=== PATIENT | male | born 1960 | race Caucasian/White ===

== ENCOUNTER 2022-01-16 13:23 | Inpatient (IN) | payer MEDICARE, MEDICAID, SELFPAY ==
--- NOTE | ~2022-01-16 | US_ITS ---
EXAMINATION: US RETROPERITONEAL LIMITED (RENAL ONLY) CLINICAL INFORMATION: LIVE. COMPARISON: None TECHNIQUE: Real-time imaging of the kidneys. FINDINGS: RIGHT KIDNEY: 11.2 x 5.5 x 6.1 cm (SAG x AP x TRV). The kidney is normal in size, contour, and echogenicity. Renal cortical thickness is normal. Renal cortical thickness measures 1.9 cm in the upper, mid and lower pole. No calculi or focal parenchymal lesions. No hydronephrosis. LEFT KIDNEY: 11.8 x 7.7 x 4.7 cm (SAG x AP x TRV). The kidney is normal in size, contour, and echogenicity. Renal cortical thickness is normal. Renal cortical thickness measures 1.8 cm in the upper pole, 1.9 cm in the midpole and 1.6 cm in the lower pole. There are 2 cysts measuring 0.9 x 1 x 1.3 cm in the upper pole and 0.8 x 0.7 x 0.7 cm in the midpole. No renal calculi or hydronephrosis. US/US renal BI IMPRESSION: Normal renal cortical thickness. No hydronephrosis. Small left renal cysts..
--- NOTE | ~2022-01-16 | XR_ITS ---
EXAMINATION: XR HIP, RIGHT CLINICAL INFORMATION: Right hip pain COMPARISON: None TECHNIQUE: Two views of the right hip. FINDINGS: No right hip or pelvic fracture seen. Mild to moderate osteoarthritis of the right hip. Sacroiliac joints are patent. Nonobstructive abdominal bowel gas pattern. Vascular calcifications. XR/XR hip RT w PEL1V IMPRESSION: Mild to moderate osteoarthritis of the right hip.
[2022-01-16 13:42] VITALS: BP 200/112; PULSE 85; RESP 18; TEMP 37.2; O2SAT 96; BMI 34.2
--- NOTE | 2022-01-16 14:24 | ED_ITS ---
HPI - Psych General Chief Complaint: Psychiatric Symptoms <Rowan Tomlin NP - Last Filed: 01/16/22 17:40> Stated Complaint: SEC 12 FOR SI BY N <Rowan Tomlin NP - Last Filed: 01/16/22 17:40> Time Seen by Provider: 01/16/22 13:37 <Rowan Tomlin NP - Last Filed: 01/16/22 17:40> Source: EMS and agricultural loan officer <Rowan Tomlin NP - Last Filed: 01/16/22 17:40> Mode of arrival: EMS <Rowan Tomlin NP - Last Filed: 01/16/22 17:40> Limitations: language barrier <Rowan Tomlin NP - Last Filed: 01/16/22 17:40> History of Present Illness HPI Narrative: Patient is a 61-year-old male with a past medical history of HTN, HLD, and diabetes who presents to the ED today via EMS due to a Section 12 placed by [facility] for SI/auditory hallucinations. He reports a voice in his head which he describes as ?a memory that is telling him to ?keep walking to the nearest bridge and throw himself off of it. He states that he has had several thoughts of SI within the last year with a plan to scratch face off completely, however denies hearing this ?memory or having other hallucinations during any of those episodes. He denies any previously known psych history, however states he has seen a counselor at his denominational a few times in the past. Per Section 12 doc umentation, patient had asked to ?keep the machete under the bed to protect himself from danger in stating that he is being tracked. When asked about being in danger, patient denies feelings of being unsafe, being tracked, and being in danger. He denies any HI, visual hallucinations, racing thoughts, and recent substance/ETOH use. He denies vision changes, chest pain, SOB, abdominal pain, N/V/D, leg pain/swelling, and any rashes. <Rowan Tomlin NP - Last Filed: 01/16/22 17:40> Related Data Home Medications: Home Medications Medication Instructions Recorded Confirmed atorvastatin 20 mg tablet 20 mg PO DAILY 01/16/22 01/16/22 gabapentin 300 mg tablet 300 mg PO BEDTIME PRN nerve pain 01/16/22 01/16/22 lisinopril 40 mg tablet 40 mg PO DAILY 01/16/22 01/16/22 trazodone 100 mg tablet 100 mg PO BEDTIME 01/16/22 01/16/22 <Rowan Tomlin NP - Last Filed: 01/16/22 17:40> Allergies/Adverse Reactions: Allergies Allergy/AdvReac Type Severity Reaction Status Date / Time Penicillins Allergy Unknown Verified 01/16/22 14:14 <STEPHEN Ordonez Last Filed: 01/16/22 17:40> Review of Systems Review of Systems: Yes all other systems are reviewed and are negative <STEPHEN Ordonez Last Filed: 01/16/22 17:40> Constitutional: Constitutional: Reports no additional constitutional complaints, Denies body ache(s), Denies chills, Denies fever(s), Reports head ache(s) and Denies weakness <STEPHEN Ordonez Last Filed: 01/16/22 17:40> Eyes: Eyes: Reports no additional eye complaints and Denies change in vision <STEPHEN Ordonez Last Filed: 01/16/22 17:40> ENT: Reports system reviewed and no additional complaints, except as documented, Denies dizziness, Reports headache(s), Denies nasal congestion, Denies nasal discharge and Denies neck pain <STEPHEN Ordonez Last Filed: 01/16/22 17:40> Cardiovascular: Cardiovascular: Reports no additional cardiovascular complaints, Denies chest pain, Denies leg edema and Denies dyspnea <STEPHEN Ordonez Last Filed: 01/16/22 17:40> Respiratory: Respiratory: Reports no additional respiratory complaints, Denies cough and Denies dyspnea <STEPHEN Ordonez Last Filed: 01/16/22 17:40> Gastrointestinal: Gastrointestinal: Reports no additional gastrointestinal complaints, Denies abdominal pain, Denies diarrhea, Denies nausea and Denies vomiting <STEPHEN Ordonez Last Filed: 01/16/22 17:40> Genitourinary: Genitourinary: Denies urinary incontinence <Rowan Tomlin NP - Last Filed: 01/16/22 17:40> Musculoskeletal: Musculoskeletal: Reports no additional musculoskeletal complaints, Denies back pain, Denies arthralgias, Denies joint swelling, Denies neck pain, Denies numbness and Denies tingling <Rowan Tomlin NP - Last Filed: 01/16/22 17:40> Integumentary/Breasts: Skin/Breast: Reports system reviewed and no additional complaints, except as docu and Denies rash <Rowan Tomlin NP - Last Filed: 01/16/22 17:40> Neurologic: Reports system reviewed and no additional complaints, except as documented, Denies Abnormal speech present, Denies dizziness, Reports headache(s), Denies numbness, Denies tingling and Denies weakness <Rowan Tomlin NP - Last Filed: 01/16/22 17:40> Psychiatric: Psychiatric: Reports auditory hallucinations, Reports hallucinations and Reports suicidal ideation <Rowan Tomlin NP - Last Filed: 01/16/22 17:40> PMF Past Medical History Attestation statement: The following information was validated with the patient. <Rowan Tomlin NP - Last Filed: 01/16/22 17:40> Source: old records reviewed, obtained from family and nursing notes reviewed <Rowan Tomlin NP - Last Filed: 01/16/22 17:40> Social History Social History: Social History Advance Directives: No Advance Directives Information Provided: No <Rowan Tomlin NP - Last Filed: 01/16/22 17:40> Physical Exam Vital Signs: Vital Signs: Last Vital Signs Temp 99.0 F 01/16/22 13:42 Pulse 75 01/16/22 17:56 Resp 18 01/16/22 17:56 BP 207/96 H 01/16/22 17:56 Pulse Ox 98 01/16/22 17:56 O2 Del Method 01/16/22 17:56 BMI result Body Mass Index 34.2 <Rowan Tomlin NP - Last Filed: 01/16/22 17:40> Vital Signs: Last Vital Signs Temp 99.0 F 01/16/22 13:42 Pulse 75 01/16/22 17:56 Resp 18 01/16/22 17:56 BP 207/96 H 01/16/22 17:56 Pulse Ox 98 01/16/22 17:56 O2 Del Method 01/16/22 17:56 BMI result Body Mass Index 34.2 <Suzy Eng CONVEYOR CONSOLE OPERATOR - Last Filed: 01/16/22 21:44> Const: General: cooperative, no acute distress and anxious <Rowan Tomlin NP - Last Filed: 01/16/22 17:40> Orientation/consciousness: oriented to place <Rowan Tomlin NP - Last Filed: 01/16/22 17:40> Limitations: language barrier ([place]an speaking) <Rowan Tomlin NP - Last Filed: 01/16/22 17:40> HEENT: Head: Yes normal to inspection <Rowan Tomlin NP - Last Filed: 01/16/22 17:40> Ears: hearing grossly normal bilaterally <Rowan Tomlin NP - Last Filed: 01/16/22 17:40> General nose exam: Normal external nose present <Rowan Tomlin NP - Last Filed: 01/16/22 17:40> Face and sinus: Yes normal facial exam <Rowan Tomlin NP - Last Filed: 01/16/22 17:40> Mouth: Normal oral and palatal mucosa present <Rowan Tomlin NP - Last Filed: 01/16/22 17:40> Throat: Yes posterior oropharynx normal <Rowan Tomlin NP - Last Filed: 01/16/22 17:40> Eyes: General: appearance normal, both eyes and all related structures <Rowan Tomlin NP - Last Filed: 01/16/22 17:40> Eyelids: Yes eyelids normal <Rowan Tomlin NP - Last Filed: 01/16/22 17:40> Sclerae: sclerae normal <Rowan Tomlin NP - Last Filed: 01/16/22 17:40> Pupils: Equal, round and reactive pupils present <Rowan Tomlin NP - Last Filed: 01/16/22 17:40> Neck: Neck: Yes normal visual inspection <Rowan Tomlin NP - Last Filed: 01/16/22 17:40> Chest: Chest palpation & inspection: normal inspection of the chest <Rowan Tomlin NP - Last Filed: 01/16/22 17:40> Resp: Effort & Inspection: normal respiratory effort <Rowan Tomlin CONVEYOR CONSOLE OPERATOR - Last Filed: 01/16/22 17:40> Auscultation: clear to auscultation bilaterally <Rowan Tomlin NP - Last Filed: 01/16/22 17:40> Cardio: Rate: regular rate <Rowan Tomlin NP - Last Filed: 01/16/22 17:40> Rhythm: regular rhythm <Rowan Tomlin NP - Last Filed: 01/16/22 17:40> Peripheral pulses: Peripheral pulses 2+ throughout <Rowan Tomlin CONVEYOR CONSOLE OPERATOR - Last Filed: 01/16/22 17:40> GI: Inspection: Yes normal to inspection <Rowan Tomlin NP - Last Filed: 01/16/22 17:40> Palpation (GI): Soft to palpation and nontender <Rowan Tomlin NP - Last Filed: 01/16/22 17:40> Auscultation: normal bowel sounds <Rowan Tomlin NP - Last Filed: 01/16/22 17:40> Back/Spine/Pelvis: Thoracic/Lumbar Spine: thoracic and lumbar spine normal to inspection <Rowan Tomlin NP - Last Filed: 01/16/22 17:40> Skin: General skin exam: no rashes or lesions noted <Rowan Tomlin NP - Last Filed: 01/16/22 17:40> Trauma: abrasion (Distal R forearm from pt scratching himself) <Rowan Tomlin CONVEYOR CONSOLE OPERATOR - Last Filed: 01/16/22 17:40> Neuro: General: oriented to place and no focal motor deficits <Rowan Tomlin NP - Last Filed: 01/16/22 17:40> Cranial nerves: Yes Equal, round and reactive pupils present <Rowan Tomlin NP - Last Filed: 01/16/22 17:40> Cognition (Neuro): normal cognition <Rowan Tomlin NP - Last Filed: 01/16/22 17:40> Speech: No Abnormal speech present <Rowan Tomlin NP - Last Filed: 17:40> Gait exam (Neuro): Normal gait present <Rowan Tomlin NP - Last Filed: 01/16/22 17:40> Extrem: General: Yes normal to inspection <Rowan Tomlin NP - Last Filed: 01/16/22 17:40> Psych: Speech and movement: Clear speech present <Rowan Tomlin NP - Last Filed: 01/16/22 17:40> Affect: Sad affect present <Rowan Tomlin NP - Last Filed: 01/16/22 17:40> Attitude: cooperative and Avoids eye contact (attititude/behavior) <Rowan Tomlin NP - Last Filed: 01/16/22 17:40> Thought process: Other thought process findings present (Disorganized) <Rowan Tomlin NP - Last Filed: 01/16/22 17:40> Thought content: Suicidality present (Current thoughts of self-harm with plan ) and Hallucination(s) present auditory <Rowan Tomlin NP - Last Filed: 01/16/22 17:40> Course Course Course Narrative: Patient has elevated BUN and creatinine. No previous available for comparison. May be chronic. Patient received 2 L of IV fluids and will reassess the creatinine. Placed in physician observation pending above <Rowan Tomlin NP - Last Filed: 01/16/22 17:40> Patient has elevated BUN and creatinine. No previous available for comparison. May be chronic. Patient received 2 L of IV fluids and will reassess the creatinine. Placed in physician observation pending above 21:30 LIVE has not improved after 2 L of fluid. Patient is still paranoid, states that he does not trust his family. I did discuss this case with Dr. Lynch, plan of care is to admit LIVE. <Suzy Eng NP - Last Filed: 01/16/22 21:44> Reevaluation(s) Reevaluation #1: 1800-Sign out to suzy MITCHELL pendig above <Rowan Tomlin NP - Last Filed: 01/16/22 17:40> MDM - Psych MDM Narrative Medical decision making narrative: Patient is a 61-year-old male with a past medical history of HTN, HLD, and diabetes who presents to the ED today via EMS due to a Section 12 placed by [facility] for SI/auditory hallucinations. BP 200/112, pt did not take BP medications today. PE otherwise unremarkable. CBC reveals anemia, H/H 12.9/39. BMP WNL aside from BUN/Cr of 23/2.50. <Rowan Tomlin NP - Last Filed: 01/16/22 17:40> Medical Records Attestation: I reviewed the patient's medical records. <Rowan Tomlin NP - Last File d: 01/16/22 17:40> Lab Data Attestation: I reviewed the patient's lab results. <Rowan Tomlin NP - Last Filed: 01/16/22 17:40> Result diagrams: : 01/16/22 14:29 01/16/22 20:09 <Rowan Tomlin NP - Last Filed: 01/16/22 17:40> Labs: Lab Results 01/16/22 01/16/22 01/16/22 Range/Units 14:00 14:00 14:29 WBC 9.9 (4.8-10.8) X10*3/uL RBC 4.46 L (4.60-5.80) X10*6/uL Hgb 12.9 L (14.0-18.0) g/dl Hct 39.0 L (42.0-52.0) % MCV 87.4 (80.0-98.0) fL MCH 28.9 (27.0-33.0) pg MCHC 33.1 (31.0-36.0) g/dl RDW 12.6 (11.0-16.0) % Plt Count 299 (160-400) X10*3/uL MPV 9.6 (9.4-12.4) fL Immature Gran % (Auto) 0.3 (0.0-0.4) % Neut % (Auto) 71.0 (45-73) % Lymph % (Auto) 20.6 (20-40) % Jack % (Auto) 6.4 (2-11) % Eos % (Auto) 1.0 (0-4) % Baso % (Auto) 0.7 (0-2) % Lymph # (Auto) 2.0 (1.2-4.9) X10*3/uL Jack # (Auto) 0.6 (0.1-1.2) X10*3/uL Eos # (Auto) 0.1 (0.0-0.4) X10*3/uL Baso # (Auto) 0.1 (0.0-0.2) X10*3/uL Abs Immat Gran (auto) 0.03 (0.00-0.03) X10*3/uL Absolute Neuts (auto) 7.1 (2.0-8.3) x10*3/uL Absolute Nucleated RBC 0.000 (0.0-0.012) X10*3/uL Nucleated RBC % (auto) 0.0 (0.0-0.2) /100WBC Sodium (135-145) mmol/L Potassium (3.3-5.1) mmol/L Chloride (96-108) mmol/L Carbon Dioxide (22-29) mmol/L Anion Gap (12-20) BUN (9-16) mg/dL Creatinine (0.5-1.4) mg/dL Estim Creat Clear Calc Estimated GFR Random Glucose (60-115) mg/dL Calcium (8.4-10.2) mg/dL Total Bilirubin (0.0-1.0) mg/dL Direct Bilirubin (0.0-0.5) mg/dL AST (5-37) U/L ALT (0-40) U/L Alkaline Phosphatase (39-117) U/L Total Protein (6.5-8.0) g/dL Albumin (3.5-5.0) g/dL Salicylates (15-30) mg/dL Urine Opiates Screen Not Detected (Not Detect) Urine Fentanyl Screen Not Detected (Not Detect) Acetaminophen (<30) mcg/mL Ur Barbiturates Screen Not Detected (Not Detect) Ur Phencyclidine Scrn Not Detected (Not Detect) Ur Amphetamines Screen Not Detected (Not Detect) U Benzodiazepines Scrn Not Detected (Not Detect) Urine Cocaine Screen Not Detected (Not Detect) U Marijuana (THC) Screen Not Detected (Not Detect) Ethyl Alcohol mg/dL COVID-19 ([facility]) Negative (Negative) COVID-19 Clin Com See Note 01/16/22 01/16/22 01/16/22 Range/Units 14:30 14:30 20:09 WBC (4.8-10.8) X10*3/uL RBC (4.60-5.80) X10*6/uL Hgb (14.0-18.0) g/dl Hct (42.0-52.0) % MCV (80.0-98.0) fL MCH (27.0-33.0) pg MCHC (31.0-36.0) g/dl RDW (11.0-16.0) % Plt Count (160-400) X10*3/uL MPV (9.4-12.4) fL Immature Gran % (Auto) (0.0-0.4) % Neut % (Auto) (45-73) % Lymph % (Auto) (20-40) % Jack % (Auto) (2-11) % Eos % (Auto) (0-4) % Baso % (Auto) (0-2) % Lymph # (Auto) (1.2-4.9) X10*3/uL Jack # (Auto) (0.1-1.2) X10*3/uL Eos # (Auto) (0.0-0.4) X10*3/uL Baso # (Auto) (0.0-0.2) X10*3/uL Abs Immat Gran (auto) (0.00-0.03) X10*3/uL Absolute Neuts (auto) (2.0-8.3) x10*3/uL Absolute Nucleated RBC (0.0-0.012) X10*3/uL Nucleated RBC % (auto) (0.0-0.2) /100WBC Sodium 140 142 (135-145) mmol/L Potassium 4.7 4.9 (3.3-5.1) mmol/L Chloride 106 108 (96-108) mmol/L Carbon Dioxide 22 25 (22-29) mmol/L Anion Gap 17 14 (12-20) BUN 23 H 23 H (9-16) mg/dL Creatinine 2.50 H 2.34 H (0.5-1.4) mg/dL Estim Creat Clear Calc 27.7 29.6 Estimated GFR 27 29 Random Glucose 259 H 277 H (60-115) mg/dL Calcium 9.7 8.9 D (8.4-10.2) mg/dL Total Bilirubin 0.4 (0.0-1.0) mg/dL Direct Bilirubin 0.2 (0.0-0.5) mg/dL AST 20 (5-37) U/L ALT 18 (0-40) U/L Alkaline Phosphatase 96 (39-117) U/L Total Protein 7.4 (6.5-8.0) g/dL Albumin 4.2 (3.5-5.0) g/dL Salicylates < 5.0 L (15-30) mg/dL Urine Opiates Screen (Not Detect) Urine Fentanyl Screen (Not Detect) Acetaminophen < 1 (<30) mcg/mL Ur Barbiturates Screen (Not Detect) Ur Phencyclidine Scrn (Not Detect) Ur Amphetamines Screen (Not Detect) U Benzodiazepines Scrn (Not Detect) Urine Cocaine Screen (Not Detect) U Marijuana (THC) Screen (Not Detect) Ethyl Alcohol < 10 mg/dL COVID-19 ([facility]) (Negative) COVID-19 Clin Com <Rowan Tomlin, CONVEYOR CONSOLE OPERATOR - Last Filed: 01/16/22 17:40> Lab Results 01/16/22 01/16/22 01/16/22 Range/Units 14:00 14:00 14:29 WBC 9.9 (4.8-10.8) X10*3/uL RBC 4.46 L (4.60-5.80) X10*6/uL Hgb 12.9 L (14.0-18.0) g/dl Hct 39.0 L (42.0-52.0) % MCV 87.4 (80.0-98.0) fL MCH 28.9 (27.0-33.0) pg MCHC 33.1 (31.0-36.0) g/dl RDW 12.6 (11.0-16.0) % Plt Count 299 (160-400) X10*3/uL MPV 9.6 (9.4-12.4) fL Immature Gran % (Auto) 0.3 (0.0-0.4) % Neut % (Auto) 71.0 (45-73) % Lymph % (Auto) 20.6 (20-40) % Jack % (Auto) 6.4 (2-11) % Eos % (Auto) 1.0 (0-4) % Baso % (Auto) 0.7 (0-2) % Lymph # (Auto) 2.0 (1.2-4.9) X10*3/uL Jack # (Auto) 0.6 (0.1-1.2) X10*3/uL Eos # (Auto) 0.1 (0.0-0.4) X10*3/uL Baso # (Auto) 0.1 (0.0-0.2) X10*3/uL Abs Immat Gran (auto) 0.03 (0.00-0.03) X10*3/uL Absolute Neuts (auto) 7.1 (2.0-8.3) x10*3/uL Absolute Nucleated RBC 0.000 (0.0-0.012) X10*3/uL Nucleated RBC % (auto) 0.0 (0.0-0.2) /100WBC Sodium (135-145) mmol/L Potassium (3.3-5.1) mmol/L Chloride (96-108) mmol/L Carbon Dioxide (22-29) mmol/L Anion Gap (12-20) BUN (9-16) mg/dL Creatinine (0.5-1.4) mg/dL Estim Creat Clear Calc Estimated GFR Random Glucose (60-115) mg/dL Calcium (8.4-10.2) mg/dL Total Bilirubin (0.0-1.0) mg/dL Direct Bilirubin (0.0-0.5) mg/dL AST (5-37) U/L ALT (0-40) U/L Alkaline Phosphatase (39-117) U/L Total Protein (6.5-8.0) g/dL Albumin (3.5-5.0) g/dL Salicylates (15-30) mg/dL Urine Opiates Screen Not Detected (Not Detect) Urine Fentanyl Screen Not Detected (Not Detect) Acetaminophen (<30) mcg/mL Ur Barbiturates Screen Not Detected (Not Detect) Ur Phencyclidine Scrn Not Detected (Not Detect) Ur Amphetamines Screen Not Detected (Not Detect) U Benzodiazepines Scrn Not Detected (Not Detect) Urine Cocaine Screen Not Detected (Not Detect) U Marijuana (THC) Screen Not Detected (Not Detect) Ethyl Alcohol mg/dL COVID-19 ([facility]) Negative (Negative) COVID-19 Clin Com See Note 01/16/22 01/16/22 01/16/22 Range/Units 14:30 14:30 20:09 WBC (4.8-10.8) X10*3/uL RBC (4.60-5.80) X10*6/uL Hgb (14.0-18.0) g/dl Hct (42.0-52.0) % MCV (80.0-98.0) fL MCH (27.0-33.0) pg MCHC (31.0-36.0) g/dl RDW (11.0-16.0) % Plt Count (160-400) X10*3/uL MPV (9.4-12.4) fL Immature Gran % (Auto) (0.0-0.4) % Neut % (Auto) (45-73) % Lymph % (Auto) (20-40) % Jack % (Auto) (2-11) % Eos % (Auto) (0-4) % Baso % (Auto) (0-2) % Lymph # (Auto) (1.2-4.9) X10*3/uL Jack # (Auto) (0.1-1.2) X10*3/uL Eos # (Auto) (0.0-0.4) X10*3/uL Baso # (Auto) (0.0-0.2) X10*3/uL Abs Immat Gran (auto) (0.00-0.03) X10*3/uL Absolute Neuts (auto) (2.0-8.3) x10*3/uL Absolute Nucleated RBC (0.0-0.012) X10*3/uL Nucleated RBC % (auto) (0.0-0.2) /100WBC Sodium 140 142 (135-145) mmol/L Potassium 4.7 4.9 (3.3-5.1) mmol/L Chloride 106 108 (96-108) mmol/L Carbon Dioxide 22 25 (22-29) mmol/L Anion Gap 17 14 (12-20) BUN 23 H 23 H (9-16) mg/dL Creatinine 2.50 H 2.34 H (0.5-1.4) mg/dL Estim Creat Clear Calc 27.7 29.6 Estimated GFR 27 29 Random Glucose 259 H 277 H (60-115) mg/dL Calcium 9.7 8.9 D (8.4-10.2) mg/dL Total Bilirubin 0.4 (0.0-1.0) mg/dL Direct Bilirubin 0.2 (0.0-0.5) mg/dL AST 20 (5-37) U/L ALT 18 (0-40) U/L Alkaline Phosphatase 96 (39-117) U/L Total Protein 7.4 (6.5-8.0) g/dL Albumin 4.2 (3.5-5.0) g/dL Salicylates < 5.0 L (15-30) mg/dL Urine Opiates Screen (Not Detect) Urine Fentanyl Screen (Not Detect) Acetaminophen < 1 (<30) mcg/mL Ur Barbiturates Screen (Not Detect) Ur Phencyclidine Scrn (Not Detect) Ur Amphetamines Screen (Not Detect) U Benzodiazepines Scrn (Not Detect) Urine Cocaine Screen (Not Detect) U Marijuana (THC) Screen (Not Detect) Ethyl Alcohol < 10 mg/dL COVID-19 ([facility]) (Negative) COVID-19 Clin Com <Suzy Eng NP - Last Filed: 01/16/22 21:44> Discharge Plan Discharge Clinical Impression: Acute psychosis, LIVE (acute kidney injury) <Rowan Tomlin NP - Last Filed: 01/16/22 17:40> Patient Disposition: Admitted As Inpatient <Rowan Tomlin NP - Last Filed: 01/16/22 17:40>
[2022-01-16 14:25] LABS: Amphetamine Screen Urine Not Detected (Not Detect); Barbiturates, Urine Not Detected (Not Detect); Benzodiazepines Screen Urine Not Detected (Not Detect); COVID-19 Test Negative (Negative); Cannabinoid Screen Urine Not Detected (Not Detect); Cocaine Screen Urine Not Detected (Not Detect); Fentanyl, urine Not Detected (Not Detect); Opiate Screen Urine Not Detected (Not Detect); Phencyclidine Screen Urine Not Detected (Not Detect)
[2022-01-16 14:34] LABS: MANUAL DIFF FLAG NO
[2022-01-16] MEDS: Acetaminophen 325 MG TABLET 975 MG PO (14:34)
[2022-01-16 14:38] LABS: Basophils Absolute Auto 0.1 X10*3/uL (0.0-0.2); Basophils Percent Auto 0.7 % (0-2); Eosinophils Absolute Auto 0.1 X10*3/uL (0.0-0.4); Hemoglobin 12.9 g/dl (14.0-18.0); Imm Gran Abs Auto 0.03 X10*3/uL (0.00-0.03); Imm Gran Pct Auto 0.3 % (0.0-0.4); Lymphocytes Percent Auto 20.6 % (20-40); Mean Corpuscular HGB Conc 33.1 g/dl (31.0-36.0); Mean Corpuscular Hemoglobin 28.9 pg (27.0-33.0); Mean Corpuscular Volume 87.4 fL (80.0-98.0); Mean Platelet Volume 9.6 fL (9.4-12.4); Monocytes Absolute Auto 0.6 X10*3/uL (0.1-1.2); Monocytes Percent Auto 6.4 % (2-11); Neutrophils Absolute Auto 7.1 x10*3/uL (2.0-8.3); Platelet Count 299 X10*3/uL (160-400); Red Blood Count 4.46 X10*6/uL (4.60-5.80); Red Cell Distribution Width 12.6 % (11.0-16.0); White Blood Count 9.9 X10*3/uL (4.8-10.8)
[2022-01-16] MEDS: lisinopriL 40 MG TABLET PO (14:41)
[2022-01-16 14:59] LABS: Ethanol < 10 mg/dL
[2022-01-16 15:01] LABS: Acetaminophen LAB < 1 mcg/mL (<30); Alanine Aminotransferase 18 U/L (0-40); Albumin Level 4.2 g/dL (3.5-5.0); Alkaline Phosphatase 96 U/L (39-117); Anion Gap 17 (12-20); Aspartate Amino Transferase 20 U/L (5-37); Bilirubin Direct 0.2 mg/dL (0.0-0.5); Bilirubin Total 0.4 mg/dL (0.0-1.0); Blood Urea Nitrogen 23 mg/dL (9-16); Calcium 9.7 mg/dL (8.4-10.2); Carbon Dioxide 22 mmol/L (22-29); Chloride 106 mmol/L (96-108); Creatinine Clr Calc Pharmacy 27.7; Estimated Glomerular Filt Rate 27; Glucose Random 259 mg/dL (60-115); Potassium 4.7 mmol/L (3.3-5.1); Salicylate < 5.0 mg/dL (15-30); Sodium 140 mmol/L (135-145); Total Protein 7.4 g/dL (6.5-8.0)
--- NOTE | 2022-01-16 17:11 | PC.NURSE ---
Family called for an update on patient admission status. does not speak norwegian. millinery salesperson is ruby [phone]
[2022-01-16 17:56] VITALS: BP 207/96; PULSE 75; RESP 18; O2SAT 98
[2022-01-16] MEDS: 0.9 % Sodium Chloride 2,000 ML 999 ML IV (18:03)
[2022-01-16 20:39] LABS: Anion Gap 14 (12-20); Blood Urea Nitrogen 23 mg/dL (9-16); Calcium 8.9 mg/dL (8.4-10.2); Carbon Dioxide 25 mmol/L (22-29); Chloride 108 mmol/L (96-108); Creatinine Clr Calc Pharmacy 29.6; Estimated Glomerular Filt Rate 29; Glucose Random 277 mg/dL (60-115); Potassium 4.9 mmol/L (3.3-5.1); Sodium 142 mmol/L (135-145)
[2022-01-16 21:58] VITALS: BP 129/69; PULSE 77; RESP 18; TEMP 36.7
[2022-01-16 22:22] LABS: Appearance Urine Clear; Color Urine Yellow; Glucose Urine UA 500 mg/dL (Negative); Leukocyte Esterase Urine Negative (Negative); Nitrite Urine Negative (Negative); PH 6.5 (5.0-9.0); UMIC TRIGGER UACC YES; Urine Blood Trace (Negative); Urine Ketones Negative (Negative); Urine Protein 300 (3+) mg/dL (Neg-Trace)
[2022-01-16 22:27] LABS: Bacteria Urine None Seen (None Seen); Hyaline Casts Urine 0-2 /LPF (0-2); RBC Urine 0-2 /HPF (0-2); Squamous Epithelial Cell Urine 0-2 /HPF (0-2); WBC Urine 0-5 /HPF (0-5)
--- NOTE | 2022-01-16 22:41 | P.HPHOSP_ITS ---
History of Present Illness Date of Service: 01/16/22 Attending physician on admission: Emerson Lynch Chief Complaint: SI, AH 61-year-old male with a past medical history of HTN, HLD, and diabetes who presents to the ED today via EMS due to a Section 12 placed by [facility] for SI/auditory hallucinations. He reports a voice in his head which he describes as ?a memory that is telling him to ?keep walking to the nearest bridge and throw himself off of it. Labs in the ED significant for creatinine 2.34, BUN 23. Baseline unavailable. Patient denies any history of CKD but does report his type 2 diabetes is not well controlled. Has a history of amputations of the right 3rd toe and left 5th toe and distal metatarsal. He states his sugars have been ?high? and endorses polyuria. He denies any fevers, chills, recent illness, nausea, vomiting, abdominal pain, oliguria, dysuria, hematuria. Review of Systems Review of Systems: General: No fevers, malaise, unintentional weight loss Cardiovascular: No chest pain, palpitations, or leg edema Respiratory: No shortness of breath, wheezing, cough GI: No abdominal pain, nausea, vomiting, diarrhea, constipation, melena, hematochezia Neuro: No headaches, weakness, paresthesias Psych: +depression, +SI, +AH Skin: No rashes or lesions PMFSH Medical History HLD (hyperlipidemia) HTN (hypertension) Type 2 diabetes Family History Mother No pertinent family history Father No pertinent family history Surgical History Status post amputation of toe Social History (Updated 01/16/22 @ 22:46 by CLOVER Verdugo) Alcohol intake: former Year quit: 2017 Patient Tobacco Use Status: Former Tobacco user Use of substances other than those prescribed or required for medical reasons: Yes Substance Use Type: Crack/Cocaine and Marijuana Last Used Substance: Unknown Advance Directives: No Advance Directives Information Provided: No Meds Allergies Allergy/AdvReac Type Severity Reaction Status Date / Time Penicillins Allergy Unknown Verified 01/16/22 14:14 Active Medications: Current Medications Acetaminophen (Acetaminophen 325 Mg Tablet) 650 mg PO Q6H PRN PRN Reason: Pain, Mild (Pain Scale 1-3) Atorvastatin Calcium (Atorvastatin Calcium 20 Mg Tablet) 20 mg PO DAILY [facility] Docusate Sodium (Docusate Sodium 100 Mg Capsule) 100 mg PO DAILY PRN PRN Reason: Constipation Gabapentin (Gabapentin 300 Mg Capsule) 300 mg PO BEDTIME PRN PRN Reason: neuropathic pain Heparin Sodium (Porcine) (Heparin Sodium,Porcine 5,000 Unit/Ml Vial) 5,000 unit SUBCUT Q12H [facility] Sodium Chloride (Ns) 1,000 mls @ 100 mls/hr IVCONT .Q10H [facility] Lisinopril (Lisinopril 40 Mg Tablet) 40 mg PO DAILY STEPHANIE; Protocol Ondansetron HCl (Ondansetron Hcl 4 Mg/2 Ml Vial) 4 mg IVPUSH Q8H PRN PRN Reason: Nausea and Vomiting Sodium Chloride (0.9 % Sodium Chloride Flush 3 Ml Syringe) 3 ml IVFLUSH QSHIFT [facility]PH[facility] Trazodone HCl (Trazodone Hcl 100 Mg Tablet) 100 mg PO BEDTIME [facility] Home Medications Medication Instructions Recorded Confirmed Last Taken Type atorvastatin 20 mg tablet 20 mg PO DAILY 01/16/22 01/16/22 Unknown History gabapentin 300 mg capsule 1 cap PO BEDTIME PRN neuropathic 01/16/22 01/16/22 Unknown History pain lisinopril 40 mg tablet 40 mg PO DAILY 01/16/22 01/16/22 Unknown History trazodone 100 mg tablet 100 mg PO BEDTIME 01/16/22 01/16/22 Unknown History Physical Exam Vital Signs and Narrative: Vital Signs: Last Vital Signs Temp 98.0 F 01/16/22 21:58 Pulse 77 01/16/22 21:58 Resp 18 01/16/22 21:58 BP 129/69 01/16/22 21:58 Pulse Ox 98 01/16/22 17:56 O2 Del Method 01/16/22 21:58 BMI result Body Mass Index 34.2 Constitutional - Awake and Alert, No apparent distress Eyes - PERRLA, EOMI Cardiovascular - S1S2, RRR, No edema Respiratory - Normal lung expansion, Normal respiratory effort, No respiratory distress, CTA bilaterally Gastrointestinal - NT / ND; +BS; No rebound or guarding - No CVA tenderness Extremities - no calf tenderness bilaterally, no swelling Skin - Warm/Dry Neurological - Alert & oriented x3, No focal deficit Results Labs CBC and Chem 7: 01/16/22 14:29 01/16/22 20:09 Labs: Laboratory Results - last 24 hr 01/16/22 01/16/22 01/16/22 14:00 14:00 14:29 MCV 87.4 MCH 28.9 MCHC 33.1 RDW 12.6 Plt Count 299 MPV 9.6 Immature Gran % (Auto) 0.3 Neut % (Auto) 71.0 Lymph % (Auto) 20.6 Bacon % (Auto) 6.4 Eos % (Auto) 1.0 Baso % (Auto) 0.7 Lymph # (Auto) 2.0 Bacon # (Auto) 0.6 Eos # (Auto) 0.1 Baso # (Auto) 0.1 Abs Immat Gran (auto) 0.03 Absolute Neuts (auto) 7.1 Absolute Nucleated RBC 0.000 Nucleated RBC % (auto) 0.0 Anion Gap Estim Creat Clear Calc Estimated GFR Random Glucose Calcium Total Bilirubin Direct Bilirubin AST ALT Alkaline Phosphatase Total Protein Albumin Urine Color Urine Appearance Urine pH Ur Specific [place] Urine Protein Urine Glucose (UA) Urine Ketones Urine Blood Urine Nitrite Ur Leukocyte Esterase Urine RBC Urine WBC Ur Squamous Epith Cells Urine Bacteria Hyaline Casts Salicylates Urine Opiates Screen Not Detected Urine Fentanyl Screen Not Detected Acetaminophen Ur Barbiturates Screen Not Detected Ur Phencyclidine Scrn Not Detected Ur Amphetamines Screen Not Detected U Benzodiazepines Scrn Not Detected Urine Cocaine Screen Not Detected U Marijuana (THC) Screen Not Detected Ethyl Alcohol COVID-19 ([facility]) Negative COVID-19 Clin Com See Note 01/16/22 01/16/22 01/16/22 14:30 14:30 20:09 MCV MCH MCHC RDW Plt Count MPV Immature Gran % (Auto) Neut % (Auto) Lymph % (Auto) Bacon % (Auto) Eos % (Auto) Baso % (Auto) Lymph # (Auto) Bacon # (Auto) Eos # (Auto) Baso # (Auto) Abs Immat Gran (auto) Absolute Neuts (auto) Absolute Nucleated RBC Nucleated RBC % (auto) Anion Gap 17 14 Estim Creat Clear Calc 27.7 29.6 Estimated GFR 27 29 Random Glucose 259 H 277 H Calcium 9.7 8.9 D Total Bilirubin 0.4 Direct Bilirubin 0.2 AST 20 ALT 18 Alkaline Phosphatase 96 Total Protein 7.4 Albumin 4.2 Urine Color Urine Appearance Urine pH Ur Specific [place] Urine Protein Urine Glucose (UA) Urine Ketones Urine Blood Urine Nitrite Ur Leukocyte Esterase Urine RBC Urine WBC Ur Squamous Epith Cells Urine Bacteria Hyaline Casts Salicylates < 5.0 L Urine Opiates Screen Urine Fentanyl Screen Acetaminophen < 1 Ur Barbiturates Screen Ur Phencyclidine Scrn Ur Amphetamines Screen U Benzodiazepines Scrn Urine Cocaine Screen U Marijuana (THC) Screen Ethyl Alcohol < 10 COVID-19 ([facility]) COVID-19 Clin Com 01/16/22 22:13 MCV MCH MCHC RDW Plt Count MPV Immature Gran % (Auto) Neut % (Auto) Lymph % (Auto) Bacon % (Auto) Eos % (Auto) Baso % (Auto) Lymph # (Auto) Bacon # (Auto) Eos # (Auto) Baso # (Auto) Abs Immat Gran (auto) Absolute Neuts (auto) Absolute Nucleated RBC Nucleated RBC % (auto) Anion Gap Estim Creat Clear Calc Estimated GFR Random Glucose Calcium Total Bilirubin Direct Bilirubin AST ALT Alkaline Phosphatase Total Protein Albumin Urine Color Yellow Urine Appearance Clear Urine pH 6.5 Ur Specific [place] 1.010 Urine Protein 300 (3+) H Urine Glucose (UA) 500 H Urine Ketones Negative Urine Blood Trace H Urine Nitrite Negative Ur Leukocyte Esterase Negative Urine RBC 0-2 Urine WBC 0-5 Ur Squamous Epith Cells 0-2 Urine Bacteria None Seen Hyaline Casts 0-2 Salicylates Urine Opiates Screen Urine Fentanyl Screen Acetaminophen Ur Barbiturates Screen Ur Phencyclidine Scrn Ur Amphetamines Screen U Benzodiazepines Scrn Urine Cocaine Screen U Marijuana (THC) Screen Ethyl Alcohol COVID-19 ([facility]) COVID-19 Clin Com Assessment and Plan (1) Acute psychosis: Status: Acute (2) LIVE (acute kidney injury): Status: Acute Plan 61-year-old male with a past medical history of HTN, HLD, and diabetes who p resents to the ED today via EMS due to a Section 12 placed by [facility] for SI/auditory hallucinations admitted to medicine due to elevated Creat/BUN. #Kidney disease- unspecified chronicity -Creat 2.34, BUn 23. Baseline unknown -?acute injury in setting of CKD secondary to uncontrolled type 2 diabetes -IVF -Nephrology consulted -Microalbumin/creat urine and urine sodium ordered -follow BMP a.m. #Uncontrolled type 2 diabetes -random glucose 277 -hemoglobin A1c pending -POC glucose -diabetic diet -Humalog sliding scale # hypertension -hold lisinopril due to kidney function -monitor BP #HLD -COntinue statin #Diabetic neuropathy -Continue gabapentin #SI/AH -On section 12 -Will need crisis on discharge for bed search -COntinue sitter -Continue trazodone DVT prophylaxis- heparin Full code Quality Stroke Does the patient have a stroke diagnosis?: No VTE Prior VTE?: No VTE Risk Level:: Medical - moderate - high VTE Device Contraindication: Treatment Not Indicated VTE Drug Contraindication: N/A - Med Ordered
[2022-01-17] VITALS (7 sets, daily range): BP systolic 131–221; BP diastolic 55–102; PULSE 69–80; RESP 14–18; TEMP 36.2–36.8; O2SAT 95–98
[2022-01-17] MEDS: 0.9 % Sodium Chloride 1,000 ML 100 ML IVCONT ×3 (00:09→18:45)
[2022-01-17] MEDS: traZODone HCL 100 MG TABLET PO ×2 (00:09→22:07)
[2022-01-17 07:21] LABS: Anion Gap 13 (12-20); Blood Urea Nitrogen 23 mg/dL (9-16); Calcium 8.3 mg/dL (8.4-10.2); Carbon Dioxide 23 mmol/L (22-29); Chloride 108 mmol/L (96-108); Creatinine Clr Calc Pharmacy 26.6; Estimated Glomerular Filt Rate 25; Glucose Random 284 mg/dL (60-115); Potassium 4.7 mmol/L (3.3-5.1); Sodium 139 mmol/L (135-145)
[2022-01-17] MEDS: Atorvastatin Calcium 20 MG TABLET PO (09:10)
--- NOTE | 2022-01-17 09:12 | MHC.CARE ---
Please consult when Pt is medically cleared. Pt was seen by [facility] epperson and found IPLOC in the community 01/16.
[2022-01-17 10:11] LABS: Creatinine Urine 118.21 mg/dL
[2022-01-17 10:46] LABS: Microalbum/Creatinine Ratio Ur 2504.8 ug/mg cr
--- NOTE | 2022-01-17 11:21 | PM.CNNEP ---
History of Present Illness Reason for Consult Consult date: 01/17/22 Chief Complaint Chief complaint: LIVE History of Present Illness Narrative: 61-year-old male with diabetes who presented to the ER via EMS due to a Section 12 placed by [facility] for SI/auditory hallucinations. He reported a voice in his head which he describes as ?a memory that is telling him to ?keep walking to the nearest bridge and throw himself off of it. Labs in the ED significant for creatinine 2.34, BUN 23.? Baseline unavailable.? Patient denies any history of CKD but does report his type 2 diabetes is not well controlled.? Has a history of amputations of the right 3rd toe and left 5th toe and distal metatarsal.? He states his sugars have been ?high? and endorses polyuria.? He denies any fevers, chills, recent illness, nausea, vomiting, abdominal pain, oliguria, dysuria, hematuria.Nephrology has been consulted to assist in his clinical care during his current hospital stay Review of Systems Review of Systems Yes all other systems are reviewed and are negative PMFSH Past Medical History Medical History HLD (hyperlipidemia) HTN (hypertension) Type 2 diabetes Family History Family History Mother No pertinent family history Father No pertinent family history Surgical History Surgical History Status post amputation of toe Social History Social History (Updated 01/16/22 @ 22:46 by CLOVER Verdugo) Alcohol intake: former Year quit: 2017 Patient Tobacco Use Status: Former Tobacco user Use of substances other than those prescribed or required for medical reasons: Yes Substance Use Type: Crack/Cocaine and Marijuana Last Used Substance: Unknown Advance Directives: No Advance Directives Information Provided: No Meds Allergies Allergy/AdvReac Type Severity Reaction Status Date / Time Penicillins Allergy Unknown Verified 01/16/22 14:14 Active Medications: Current Medications Acetaminophen (Acetaminophen 325 Mg Tablet) 650 mg PO Q6H PRN PRN Reason: Pain, Mild (Pain Scale 1-3) Atorvastatin Calcium (Atorvastatin Calcium 20 Mg Tablet) 20 mg PO DAILY [facility] Last Admin: 01/17/22 09:10 Dose: 20 mg Dextrose (Dextrose 50 % 25 Gm/50 Ml Syringe) 25 gm IVPUSH Q15M PRN; Protocol PRN Reason: per Hypoglycemia Standing Ord. Docusate Sodium (Docusate Sodium 100 Mg Capsule) 100 mg PO DAILY PRN PRN Reason: Constipation Gabapentin (Gabapentin 300 Mg Capsule) 300 mg PO BEDTIME PRN PRN Reason: neuropathic pain Glucose (Glucose Gel 15 Gm Gel..Gram.) 15 gm PO Q15M PRN; Protocol PRN Reason: per Hypoglycemia Standing Ord. Heparin Sodium (Porcine) (Heparin Sodium,Porcine 5,000 Unit/Ml Vial) 5,000 unit SUBCUT Q12H [facility] Last Admin: 01/17/22 11:02 Dose: Not Given Sodium Chloride (Ns) 1,000 mls @ 100 mls/hr IVCONT .Q10H [facility] Last Admin: 01/17/22 09:11 Dose: 100 mls/hr Insulin Human Lispro (Insulin Lispro 100 Unit/Ml 3 Ml Vial) 0 unit SUBCUT QIDACHS [facility]; Protocol Ondansetron HCl (Ondansetron Hcl 4 Mg/2 Ml Vial) 4 mg IVPUSH Q8H PRN PRN Reason: Nausea and Vomiting Sodium Chloride (0.9 % Sodium Chloride Flush 3 Ml Syringe) 3 ml IVFLUSH QSHIFT [facility] Last Admin: 01/17/22 08:11 Dose: Not Given Trazodone HCl (Trazodone Hcl 100 Mg Tablet) 100 mg PO BEDTIME [facility] Last Admin: 01/17/22 00:09 Dose: 100 mg Home Medications Medication Instructions Recorded Confirmed Last Taken Type atorvastatin 20 mg tablet 20 mg PO DAILY 01/16/22 01/16/22 Unknown History gabapentin 300 mg capsule 1 cap PO BEDTIME PRN neuropathic 01/16/22 01/16/22 Unknown History pain lisinopril 40 mg tablet 40 mg PO DAILY 01/16/22 01/16/22 Unknown History trazodone 100 mg tablet 100 mg PO BEDTIME 01/16/22 01/16/22 Unknown History Physical Exam Vital Signs: Last Vital Signs Temp 97.8 F 01/17/22 07:22 Pulse 74 01/17/22 07:22 Resp 14 01/17/22 07:22 BP 139/55 L 01/17/22 07:22 Pulse Ox 95 01/17/22 07:22 O2 Del Method 01/17/22 07:22 BMI result Body Mass Index 34.2 Const General: no acute distress Eyes EOM: EOMs intact bilaterally Neck Neck: Yes supple Resp Auscultation: diminished lung sounds Cardio Rate: regular rate GI Palpation (GI): Soft to palpation Neuro General: moves all extremities Results Lab Results Result Diagrams: 01/16/22 14:29 01/17/22 06:16 Lab results: Chemistry 01/16/22 01/16/22 01/17/22 14:30 20:09 06:16 Sodium 140 142 139 Potassium 4.7 4.9 4.7 Carbon Dioxide 22 25 23 BUN 23 H 23 H 23 H Creatinine 2.50 H 2.34 H 2.61 H Calcium 9.7 8.9 D 8.3 L D Hematology 01/16/22 14:29 WBC 9.9 Hgb 12.9 L Plt Count 299 Urinalysis 01/16/22 22:13 Urine Color Yellow Urine Appearance Clear Urine pH 6.5 Ur Specific [place] 1.010 Urine Protein 300 (3+) H Urine Glucose (UA) 500 H Urine Ketones Negative Urine Blood Trace H Urine Nitrite Negative Ur Leukocyte Esterase Negative Urine RBC 0-2 Urine WBC 0-5 Ur Squamous Epith Cells 0-2 Hyaline Casts 0-2 Urine Studies 01/17/22 09:24 Urine Creatinine 118.21 Assessment and Plan (1) LIVE (acute kidney injury): Status: Acute Plan Long standing Diabetic( uncontrolled) with H/O amputations and proteinuria Likely has CKD 4 @ baseline; May have an element of LIVE due to tubular injury Work up ordered including USS. May need renal biopsy( likely diabetic nephropathy) ACEI has been on hold; On IV fluids; Labs AM; Shall F/U Procedures Date of Service Date of Service: 01/17/22
[2022-01-17 12:27] LABS: Total Protein Urine Random 368 mg/dL (<12)
--- NOTE | 2022-01-17 12:31 | HO.PM.IMPN ---
Subjective Subjective Date of Service: 01/17/22 Interval History: seen and examined this morning follow up for elevated creatinine, SI (placed on section 12) patient unaware if he has history of CKD no specific complaints at this time sitter present for safety Review of Systems Review of Systems: Yes all other systems are reviewed and are negative Constitutional Constitutional: Denies chills and Denies fever(s) ENT Ears, Nose, Mouth, and Throat: Denies dizziness Cardiovascular Cardiovascular: Denies chest pain, Denies palpitations and Denies dyspnea Respiratory Respiratory: Denies cough and Denies dyspnea Gastrointestinal Gastrointestinal: Denies abdominal pain, Denies nausea and Denies vomiting Neurologic Neurologic: Denies dizziness Endocrine Endocrine: Denies palpitations Physical Exam Vital Signs: Vital Signs: Last Vital Signs Temp 97.8 F 01/17/22 07:22 Pulse 74 01/17/22 07:22 Resp 14 01/17/22 07:22 BP 139/55 L 01/17/22 07:22 Pulse Ox 95 01/17/22 07:22 O2 Del Method 01/17/22 07:22 BMI result Body Mass Index 34.2 Const: General: comfortable, no acute distress, alert and awake Nutritional Appearance: overweight Resp: Effort & Inspection: normal respiratory effort and able to speak in complete sentences Auscultation: clear to auscultation bilaterally Cardio: Rate: regular rate Heart sounds: S1 normal heart sound present and S2 normal heart sound present GI: Inspection: No distended Palpation (GI): Soft to palpation and nontender Neuro: Other: grossly nonfocal Extrem: General: Yes no pedal edema Objective Data Active Medications Acetaminophen (Acetaminophen 325 Mg Tablet) 650 mg PO Q6H PRN PRN Reason: Pain, Mild (Pain Scale 1-3) Atorvastatin Calcium (Atorvastatin Calcium 20 Mg Tablet) 20 mg PO DAILY [facility] Last Admin: 01/17/22 09:10 Dose: 20 mg Documented By: FRANCINE Dextrose (Dextrose 50 % 25 Gm/50 Ml Syringe) 25 gm IVPUSH Q15M PRN; Protocol PRN Reason: per Hypoglycemia Standing Ord. Docusate Sodium (Docusate Sodium 100 Mg Capsule) 100 mg PO DAILY PRN PRN Reason: Constipation Gabapentin (Gabapentin 300 Mg Capsule) 300 mg PO BEDTIME PRN PRN Reason: neuropathic pain Glucose (Glucose Gel 15 Gm Gel..Gram.) 15 gm PO Q15M PRN; Protocol PRN Reason: per Hypoglycemia Standing Ord. Heparin Sodium (Porcine) (Heparin Sodium,Porcine 5,000 Unit/Ml Vial) 5,000 unit SUBCUT Q12H [facility] Last Admin: 01/17/22 11:02 Dose: Not Given Documented By: FRANCINE Non-Admin Reason: Patient Refused Sodium Chloride (Ns) 1,000 mls @ 100 mls/hr IVCONT .Q10H [facility] Last Admin: 01/17/22 09:11 Dose: 100 mls/hr Documented By: FRANCINE Insulin Human Lispro (Insulin Lispro 100 Unit/Ml 3 Ml Vial) 0 unit SUBCUT QIDACHS [facility]; Protocol Ondansetron HCl (Ondansetron Hcl 4 Mg/2 Ml Vial) 4 mg IVPUSH Q8H PRN PRN Reason: Nausea and Vomiting Sodium Chloride (0.9 % Sodium Chloride Flush 3 Ml Syringe) 3 ml IVFLUSH QSHIFT [facility] Last Admin: 01/17/22 08:11 Dose: Not Given Documented By: FRANCINE Non-Admin Reason: IV Running Trazodone HCl (Trazodone Hcl 100 Mg Tablet) 100 mg PO BEDTIME [facility] Last Admin: 01/17/22 00:09 Dose: 100 mg Documented By: HEATHER Labs CBC & Chem 7: 01/16/22 14:29 01/17/22 06:16 Labs: Laboratory Results - last 24 hr 01/16/22 01/16/22 01/16/22 14:00 14:00 14:29 MCV 87.4 MCH 28.9 MCHC 33.1 RDW 12.6 Plt Count 299 MPV 9.6 Immature Gran % (Auto) 0.3 Neut % (Auto) 71.0 Lymph % (Auto) 20.6 Hardin % (Auto) 6.4 Eos % (Auto) 1.0 Baso % (Auto) 0.7 Lymph # (Auto) 2.0 Hardin # (Auto) 0.6 Eos # (Auto) 0.1 Baso # (Auto) 0.1 Abs Immat Gran (auto) 0.03 Absolute Neuts (auto) 7.1 Absolute Nucleated RBC 0.000 Nucleated RBC % (auto) 0.0 Anion Gap Estim Creat Clear Calc Estimated GFR Random Glucose Calcium Total Bilirubin Direct Bilirubin AST ALT Alkaline Phosphatase Total Protein Albumin Urine Color Urine Appearance Urine pH Ur Specific [place] Urine Protein Urine Glucose (UA) Urine Ketones Urine Blood Urine Nitrite Ur Leukocyte Esterase Urine RBC Urine WBC Ur Squamous Epith Cells Urine Bacteria Hyaline Casts U Random Total Protein Ur Random Sodium Urine Creatinine Urine Microalbumin Microalb/Creat Ratio Salicylates Urine Opiates Screen Not Detected Urine Fentanyl Screen Not Detected Acetaminophen Ur Barbiturates Screen Not Detected Ur Phencyclidine Scrn Not Detected Ur Amphetamines Screen Not Detected U Benzodiazepines Scrn Not Detected Urine Cocaine Screen Not Detected U Marijuana (THC) Screen Not Detected Ethyl Alcohol COVID-19 (ALEKSANDAR) Negative COVID-19 Clin Com See Note 01/16/22 01/16/22 01/16/22 14:30 14:30 20:09 MCV MCH MCHC RDW Plt Count MPV Immature Gran % (Auto) Neut % (Auto) Lymph % (Auto) Hardin % (Auto) Eos % (Auto) Baso % (Auto) Lymph # (Auto) Hardin # (Auto) Eos # (Auto) Baso # (Auto) Abs Immat Gran (auto) Absolute Neuts (auto) Absolute Nucleated RBC Nucleated RBC % (auto) Anion Gap 17 14 Estim Creat Clear Calc 27.7 29.6 Estimated GFR 27 29 Random Glucose 259 H 277 H Calcium 9.7 8.9 D Total Bilirubin 0.4 Direct Bilirubin 0.2 AST 20 ALT 18 Alkaline Phosphatase 96 Total Protein 7.4 Albumin 4.2 Urine Color Urine Appearance Urine pH Ur Specific [place] Urine Protein Urine Glucose (UA) Urine Ketones Urine Blood Urine Nitrite Ur Leukocyte Esterase Urine RBC Urine WBC Ur Squamous Epith Cells Urine Bacteria Hyaline Casts U Random Total Protein Ur Random Sodium Urine Creatinine Urine Microalbumin Microalb/Creat Ratio Salicylates < 5.0 L Urine Opiates Screen Urine Fentanyl Screen Acetaminophen < 1 Ur Barbiturates Screen Ur Phencyclidine Scrn Ur Amphetamines Screen U Benzodiazepines Scrn Urine Cocaine Screen U Marijuana (THC) Screen Ethyl Alcohol < 10 COVID-19 (ALEKSANDAR) COVID-19 [employer] Com 01/16/22 01/17/22 01/17/22 22:13 06:16 09:24 MCV MCH MCHC RDW Plt Count MPV Immature Gran % (Auto) Neut % (Auto) Lymph % (Auto) Hardin % (Auto) Eos % (Auto) Baso % (Auto) Lymph # (Auto) Hardin # (Auto) Eos # (Auto) Baso # (Auto) Abs Immat Gran (auto) Absolute Neuts (auto) Absolute Nucleated RBC Nucleated RBC % (auto) Anion Gap 13 Estim Creat Clear Calc 26.6 Estimated GFR 25 Random Glucose 284 H Calcium 8.3 L D Total Bilirubin Direct Bilirubin AST ALT Alkaline Phosphatase Total Protein Albumin Urine Color Yellow Urine Appearance Clear Urine pH 6.5 Ur Specific [place] 1.010 Urine Protein 300 (3+) H Urine Glucose (UA) 500 H Urine Ketones Negative Urine Blood Trace H Urine Nitrite Negative Ur Leukocyte Esterase Negative Urine RBC 0-2 Urine WBC 0-5 Ur Squamous Epith Cells 0-2 Urine Bacteria None Seen Hyaline Casts 0-2 U Random Total Protein Ur Random Sodium Urine Creatinine 118.21 Urine Microalbumin 2961.0 Microalb/Creat Ratio 2504.8 Salicylates Urine Opiates Screen Urine Fentanyl Screen Acetaminophen Ur Barbiturates Screen Ur Phencyclidine Scrn Ur Amphetamines Screen U Benzodiazepines Scrn Urine Cocaine Screen U Marijuana (THC) Screen Ethyl Alcohol COVID-19 (ALEKSANDAR) COVID-19 [place] 01/17/22 01/17/22 09:24 11:43 MCV MCH MCHC RDW Plt Count MPV Immature Gran % (Auto) Neut % (Auto) Lymph % (Auto) Hardin % (Auto) Eos % (Auto) Baso % (Auto) Lymph # (Auto) Hardin # (Auto) Eos # (Auto) Baso # (Auto) Abs Immat Gran (auto) Absolute Neuts (auto) Absolute Nucleated RBC Nucleated RBC % (auto) Anion Gap Estim Creat Clear Calc Estimated GFR Random Glucose Calcium Total Bilirubin Direct Bilirubin AST ALT Alkaline Phosphatase Total Protein Albumin Urine Color Urine Appearance Urine pH Ur Specific [place] Urine Protein Urine Glucose (UA) Urine Ketones Urine Blood Urine Nitrite Ur Leukocyte Esterase Urine RBC Urine WBC Ur Squamous Epith Cells Urine Bacteria Hyaline Casts U Random Total Protein 368 H Ur Random Sodium 71.0 Urine Creatinine Urine Microalbumin Microalb/Creat Ratio Salicylates Urine Opiates Screen Urine Fentanyl Screen Acetaminophen Ur Barbiturates Screen Ur Phencyclidine Scrn Ur Amphetamines Screen U Benzodiazepines Scrn Urine Cocaine Screen U Marijuana (THC) Screen Ethyl Alcohol COVID-19 (ALEKSANDAR) COVID-19 [place] Assessment and Plan (1) LIVE (acute kidney injury): Status: Acute Plan 61-year-old male with a past medical history of HTN, HLD, and diabetes who presents to the ED today via EMS due to a Section 12 placed by N for SI/auditory hallucinations admitted to medicine due to elevated Creat/BUN. Renal insufficiency unclear if this represents LIVE or CKD has protenuria, probable to some degree chronic seen by nephrology - renal US ordered and further work up ordered -continue IVF -follow BMP -hold Lisinopril AI/AH On section 12 Will need crisis on discharge for bed search Continue sitter Uncontrolled type 2 diabetes check HbA1c -ADA diet, POCs, SSI hypertension BP elevated on arrival. now controlled hold lisinopril due to elevated renal function monitor BP, will start norvasc if continues to be elevated HLD Continue statin Diabetic neuropathy Continue gabapentin DVT prophylaxis- heparin Full code Attending - dr. roach Patient requires ongoing inpatient hospitalization for evaluation of his elevated creatinine. will need BHN eval and possible likely inpatient psych Quality Stroke Does the patient have a stroke diagnosis?: No VTE Prior VTE?: No VTE Risk Level:: Medical - moderate - high VTE Device Contraindication: Treatment Not Indicated VTE Drug Contraindication: N/A - Med Ordered
[2022-01-17 13:30] LABS: Glucose, Whole Blood 244 mg/dL (60-115)
[2022-01-17] MEDS: Insulin Lispro 100 UNIT/ML 3 ML VIAL SUBCUT ×2 (13:32→22:06)
--- NOTE | 2022-01-17 17:57 | PC.NURSE ---
pt sent from ed bed 6 to overflow bed 8, report obtained from jennifer, this nurse took over care for patient at 1755, pt has 1:1 sitter at bedside, tech obtained vitals and noted to be hypertensive will notify provider
[2022-01-17 18:34] LABS: Glucose, Whole Blood 151 mg/dL (60-115)
[2022-01-17] MEDS: hydrALAZINE HCl 20 MG/ML VIAL 5 MG IVPUSH (18:37)
--- NOTE | 2022-01-17 18:50 | PC.NURSE ---
pt refusing dinner, provider notified and requested to hold 2U of insulin, medication held per provider
--- NOTE | 2022-01-17 18:52 | PC.NURSE ---
pt medicated for bp per order
--- NOTE | 2022-01-17 19:43 | PC.NURSE ---
Repeat BP after HTN meds remains high. Dr. Sanna barrios texted. Awaiting orders.
--- NOTE | 2022-01-17 20:34 | PC.NURSE ---
called pharmacy for missing med
--- NOTE | 2022-01-17 20:35 | PC.NURSE ---
called pharmacy for missing med
[2022-01-17] MEDS: Labetalol HCL 100 MG/20 ML VIAL 20 MG IVPUSH (20:54)
[2022-01-17 21:32] LABS: Glucose, Whole Blood 189 mg/dL (60-115)
[2022-01-17] MEDS: Nitroglycerin 2 % Oint 1 GM Packet 1 INCH TRANSDERMA (22:06)
[2022-01-17] MEDS: Acetaminophen 325 MG TABLET 650 MG PO (22:07)
[2022-01-17] MEDS: Gabapentin 300 MG CAPSULE PO (22:07)
[2022-01-17] MEDS: Heparin Sodium,Porcine 5,000 UNIT/ML VIAL 5000 UNIT SUBCUT (22:08)
--- NOTE | 2022-01-17 22:10 | PC.NURSE ---
pt medicated by float nurse for htn
--- NOTE | 2022-01-17 22:44 | PC.NURSE ---
pt sleeping, wakes to verbal stimulus, pt has nitro paste to chest to help with bp, repeat bp since nitro was applied is 158/85, pt is nsr on monitor, pt denies pain/discomfort, currently denying si/hi, 1:1 sitter at bedside, call amezcua within reach, will continue to monitor
[2022-01-18] VITALS (11 sets, daily range): BP systolic 113–196; BP diastolic 63–95; PULSE 64–96; RESP 15–20; TEMP 36.2–37.1; O2SAT 93–98
[2022-01-18] MEDS: 0.9 % Sodium Chloride 1,000 ML 100 ML IVCONT (03:39)
--- NOTE | 2022-01-18 04:07 | PC.NURSE ---
PT VSS, no pain reported, PT states he feels safe, denies SI/HI, no issues reported, IV fluids running as ordered, call amezcua within reach, PT tele is NS.
[2022-01-18 07:05] LABS: Anion Gap 13 (12-20); Blood Urea Nitrogen 20 mg/dL (9-16); Calcium 8.4 mg/dL (8.4-10.2); Carbon Dioxide 24 mmol/L (22-29); Chloride 111 mmol/L (96-108); Creatinine Clr Calc Pharmacy 31.2; Estimated Glomerular Filt Rate 30; Glucose Random 211 mg/dL (60-115); Potassium 4.7 mmol/L (3.3-5.1); Sodium 143 mmol/L (135-145)
[2022-01-18 07:10] LABS: Estimated Average Glucose 266 mg/dL; Hemoglobin A1c % 10.9 %
[2022-01-18 07:21] LABS: HBS Num1 6.87 mIU/mL (0-7.99); HBc Num1 0.07 S/CO (0.00-0.79); Hepatitis B Core Antibody Nonreactive (Nonreactive); Hepatitis B Surface Antigen Negative (Negative); ~HepC Num1 0.08 S/CO (0.00-0.79); ~Hepatitis B Surface Antibody NONREACTIVE (Nonreactive); ~Hepatitis C Antibody Nonreactive (Nonreactive)
[2022-01-18] MEDS: Insulin Lispro 100 UNIT/ML 3 ML VIAL SUBCUT ×2 (07:36→21:50)
[2022-01-18] MEDS: Atorvastatin Calcium 20 MG TABLET PO (07:37)
[2022-01-18 07:51] LABS: Glucose, Whole Blood 188 mg/dL (60-115)
--- NOTE | 2022-01-18 09:55 | PM.PNNEP ---
Subjective Subjective Date of Service: 01/18/22 Interval history: stable overnight VSS Physical Exam Vital Signs: Vital Signs: Last Vital Signs Temp 98.6 F 01/18/22 08:15 Pulse 64 01/18/22 08:15 Resp 15 01/18/22 08:15 BP 113/68 01/18/22 08:15 Pulse Ox 95 01/18/22 08:15 O2 Del Method 01/18/22 08:15 BMI result Body Mass Index 34.2 Const: General: cooperative, comfortable, no acute distress, alert, awake and anxious Nutritional Appearance: overweight Orientation/consciousness: oriented to place Limitations: language barrier (English speaking) HEENT: Head: Yes normal to inspection Ears: hearing grossly normal bilaterally General nose exam: Normal external nose present Face and sinus: Yes normal facial exam Mouth: Normal oral and palatal mucosa present Throat: Yes posterior oropharynx normal Eyes: General: appearance normal, both eyes and all related structures Eyelids: Yes eyelids normal Sclerae: sclerae normal Pupils: Equal, round and reactive pupils present EOM: EOMs intact bilaterally Neck: Neck: Yes normal visual inspection and Yes supple Chest: Chest palpation & inspection: normal inspection of the chest Resp: Effort & Inspection: normal respiratory effort and able to speak in complete sentences Auscultation: clear to auscultation bilaterally and diminished lung sounds Cardio: Rate: regular rate Rhythm: regular rhythm Heart sounds: S1 normal heart sound present and S2 normal heart sound present Peripheral pulses: Peripheral pulses 2+ throughout GI: Inspection: Yes normal to inspection and No distended Palpation (GI): Soft to palpation and nontender Auscultation: normal bowel sounds Back/Spine/Pelvis: Thoracic/Lumbar Spine: thoracic and lumbar spine normal to inspection Skin: General skin exam: no rashes or lesions noted Trauma: abrasion (Distal R forearm from pt scratching himself) Neuro: Other: grossly nonfocal General: oriented to place, moves all extremities and no focal motor deficits Cranial nerves: Yes Equal, round and reactive pupils present Cognition (Neuro): normal cognition Speech: No Abnormal speech present Gait exam (Neuro): Normal gait present Extrem: General: Yes normal to inspection and Yes no pedal edema Psych: Speech and movement: Clear speech present Affect: Sad affect present Attitude: cooperative and Avoids eye contact (attititude/behavior) Thought process: Other thought process findings present (Disorganized) Thought content: Suicidality present (Current thoughts of self-harm with plan ) and Hallucination(s) present auditory Objective Data Labs CBC & Chem 7: 01/16/22 14:29 01/18/22 05:49 Labs: Laboratory Results - last 24 hr 01/17/22 01/17/22 01/17/22 09:24 09:24 11:43 Sodium Potassium Chloride Carbon Dioxide Anion Gap BUN Creatinine Estim Creat Clear Calc Estimated GFR POC Glucose Random Glucose Estimat Average Glucose Hemoglobin A1c % Calcium U Random Total Protein 368 H Ur Random Sodium 71.0 Urine Creatinine 118.21 Urine Microalbumin 2961.0 Microalb/Creat Ratio 2504.8 Hep Bs Antigen Hep Bs Antibody Hep B Core Total Ab Hepatitis C Ab (EIA) 01/17/22 01/17/22 01/17/22 13:23 18:31 21:29 Sodium Potassium Chloride Carbon Dioxide Anion Gap BUN Creatinine Estim Creat Clear Calc Estimated GFR POC Glucose 244 H 151 H 189 H Random Glucose Estimat Average Glucose Hemoglobin A1c % Calcium U Random Total Protein Ur Random Sodium Urine Creatinine Urine Microalbumin Microalb/Creat Ratio Hep Bs Antigen Hep Bs Antibody Hep B Core Total Ab Hepatitis C Ab (EIA) 01/18/22 01/18/22 01/18/22 05:49 05:49 05:49 Sodium 143 Potassium 4.7 Chloride 111 H Carbon Dioxide 24 Anion Gap 13 BUN 20 H Creatinine 2.22 H Estim Creat Clear Calc 31.2 Estimated GFR 30 POC Glucose Random Glucose 211 H Estimat Average Glucose 266 Hemoglobin A1c % 10.9 Calcium 8.4 U Random Total Protein Ur Random Sodium Urine Creatinine Urine Microalbumin Microalb/Creat Ratio Hep Bs Antigen Negative Hep Bs Antibody NONREACTIVE Hep B Core Total Ab Nonreactive Hepatitis C Ab (EIA) Nonreactive 01/18/22 07:30 Sodium Potassium Chloride Carbon Dioxide Anion Gap BUN Creatinine Estim Creat Clear Calc Estimated GFR POC Glucose 188 H Random Glucose Estimat Average Glucose Hemoglobin A1c % Calcium U Random Total Protein Ur Random Sodium Urine Creatinine Urine Microalbumin Microalb/Creat Ratio Hep Bs Antigen Hep Bs Antibody Hep B Core Total Ab Hepatitis C Ab (EIA) Procedures Date of Service Date of Service: 01/18/22 Assessment & Plan Assessment and plan (1) LIVE (acute kidney injury): Status: Acute Plan 61-year-old male with a past medical history of HTN, HLD, and diabetes who presents to the ED today via EMS due to a Section 12 placed by BHN for SI/auditory hallucinations admitted to medicine due to elevated Creat/BUN. LIVE improved undiagnosed CKD will f/u in office Time Spent With Patient Time: Total time spent is greater than 50% in coordination of care (as documented) at patient's floor/unit and/or counseling patient: Progress Note: Quality Stroke Does the patient have a stroke diagnosis?: No
--- NOTE | 2022-01-18 09:56 | PC.NURSE ---
pt reporting right leg pain, not stated yesterday. pa reports to walk pt and see if he can ambulate
--- NOTE | 2022-01-18 10:15 | MHC.CM.PN ---
pt has a sitter is a sect 12 bhn is followinbg he is covid vax x 2
[2022-01-18] MEDS: Acetaminophen 325 MG TABLET 650 MG PO (12:08)
[2022-01-18] MEDS: Heparin Sodium,Porcine 5,000 UNIT/ML VIAL 5000 UNIT SUBCUT ×2 (12:08→20:48)
--- NOTE | 2022-01-18 12:19 | PC.NURSE ---
pt sleeping, woke to verbal stimulus, pt c/o 10/10 generalized pain, pt medicated for pain per order, today pt also stated he was hearing voices and when asked about being SI he stated he was but would not elaborate on a plan, pt denied HI. yesterday patient had denied SI/HI to this nurse, 1:1 sitter at bedside, call amezcua within reach, will continue to monitor
[2022-01-18 12:21] LABS: Glucose, Whole Blood 212 mg/dL (60-115)
--- NOTE | 2022-01-18 13:03 | HO.PM.IMPN ---
Subjective Subjective Date of Service: 01/18/22 Interval History: seen and examined this morning follow up for elevated blood pressure, creatinine and on section 12 reporting right hip pain this morning, denies fall Review of Systems Review of Systems: Yes all other systems are reviewed and are negative Constitutional Constitutional: Denies chills and Denies fever(s) Cardiovascular Cardiovascular: Denies chest pain and Denies palpitations Gastrointestinal Gastrointestinal: Denies abdominal pain, Denies nausea and Denies vomiting Endocrine Endocrine: Denies palpitations Physical Exam Vital Signs: Vital Signs: Last Vital Signs Temp 97.1 F 01/18/22 11:17 Pulse 86 01/18/22 11:17 Resp 17 01/18/22 11:17 BP 167/87 H 01/18/22 11:17 Pulse Ox 95 01/18/22 11:17 O2 Del Method 01/18/22 11:17 BMI result Body Mass Index 34.2 Const: General: comfortable, no acute distress, alert and awake Nutritional Appearance: overweight Resp: Effort & Inspection: normal respiratory effort and able to speak in complete sentences Auscultation: clear to auscultation bilaterally Cardio: Rate: regular rate Heart sounds: S1 normal heart sound present and S2 normal heart sound present GI: Inspection: No distended Palpation (GI): Soft to palpation and nontender Neuro: Other: grossly nonfocal Extrem: Other: reporting right hip pain, no erythema, bruising, decreased hip flexion, limited by pain General: Yes no pedal edema Objective Data Active Medications Acetaminophen (Acetaminophen 325 Mg Tablet) 650 mg PO Q6H PRN PRN Reason: Pain, Mild (Pain Scale 1-3) Last Admin: 01/18/22 12:08 Dose: 650 mg Documented By: JAYDEN Atorvastatin Calcium (Atorvastatin Calcium 20 Mg Tablet) 20 mg PO DAILY [facility] Last Admin: 01/18/22 07:37 Dose: 20 mg Documented By: JONATHON Dextrose (Dextrose 50 % 25 Gm/50 Ml Syringe) 25 gm IVPUSH Q15M PRN; Protocol PRN Reason: per Hypoglycemia Standing Ord. Docusate Sodium (Docusate Sodium 100 Mg Capsule) 100 mg PO DAILY PRN PRN Reason: Constipation Gabapentin (Gabapentin 300 Mg Capsule) 300 mg PO BEDTIME PRN PRN Reason: neuropathic pain Last Admin: 01/17/22 22:07 Dose: 300 mg Documented By: LOLITA Glucose (Glucose Gel 15 Gm Gel..Gram.) 15 gm PO Q15M PRN; Protocol PRN Reason: per Hypoglycemia Standing Ord. Heparin Sodium (Porcine) (Heparin Sodium,Porcine 5,000 Unit/Ml Vial) 5,000 unit SUBCUT Q12H [facility] Last Admin: 01/18/22 12:08 Dose: 5,000 unit Documented By: JAYDEN Insulin Human Lispro (Insulin Lispro 100 Unit/Ml 3 Ml Vial) 0 unit SUBCUT QIDACHS [facility]; Protocol Last Admin: 01/18/22 07:36 Dose: 2 unit Documented By: JONATHON Ondansetron HCl (Ondansetron Hcl 4 Mg/2 Ml Vial) 4 mg IVPUSH Q8H PRN PRN Reason: Nausea and Vomiting Sodium Chloride (0.9 % Sodium Chloride Flush 3 Ml Syringe) 3 ml IVFLUSH QSHIFT [facility] Last Admin: 01/18/22 07:25 Dose: Not Given Documented By: JONATHON Non-Admin Reason: Patient Asleep Trazodone HCl (Trazodone Hcl 100 Mg Tablet) 100 mg PO BEDTIME [facility] Last Admin: 01/17/22 22:07 Dose: 100 mg Documented By: LOLITA Labs CBC & Chem 7: 01/16/22 14:29 01/18/22 05:49 Labs: Laboratory Results - last 24 hr 01/17/22 01/17/22 01/17/22 13:23 18:31 21:29 Anion Gap Estim Creat Clear Calc Estimated GFR POC Glucose 244 H 151 H 189 H Random Glucose Estimat Average Glucose Hemoglobin A1c % Calcium Hep Bs Antigen Hep Bs Antibody Hep B Core Total Ab Hepatitis C Ab (EIA) 01/18/22 01/18/22 01/18/22 05:49 05:49 05:49 Anion Gap 13 Estim Creat Clear Calc 31.2 Estimated GFR 30 POC Glucose Random Glucose 211 H Estimat Average Glucose 266 Hemoglobin A1c % 10.9 Calcium 8.4 Hep Bs Antigen Negative Hep Bs Antibody NONREACTIVE Hep B Core Total Ab Nonreactive Hepatitis C Ab (EIA) Nonreactive 01/18/22 01/18/22 07:30 12:16 Anion Gap Estim Creat Clear Calc Estimated GFR POC Glucose 188 H 212 H Random Glucose Estimat Average Glucose Hemoglobin A1c % Calcium Hep Bs Antigen Hep Bs Antibody Hep B Core Total Ab Hepatitis C Ab (EIA) Assessment and Plan (1) LIVE (acute kidney injury): Status: Acute Plan 61-year-old male with a past medical history of HTN, HLD, and diabetes who presents to the ED today via EMS due to a Section 12 placed by [facility] for SI/auditory hallucinations admitted to medicine due to elevated Creat/BUN. Renal insufficiency probable CKD seen by nephrology - renal US pending - further workup outpatient -hold lisinopril right hip pain xray pending AI/AH On section 12 Will need crisis on discharge for bed search Continue sitter Uncontrolled type 2 diabetes check HbA1c -ADA diet, POCs, SSI hypertension BP elevated on arrival BP high overnight, received IV hydralazine, IV labetalol, nitropaste. Then BP low (does not appear to be documented) hold lisinopril due to elevated renal function monitor BP, will start norvasc if continues to be elevated HLD Continue statin Diabetic neuropathy Continue gabapentin DVT prophylaxis- heparin Full code Attending - dr. roach Patient requires ongoing inpatient hospitalization for evaluation of his elevated creatinine. will need N eval and possible likely inpatient psych Quality Stroke Does the patient have a stroke diagnosis?: No VTE Prior VTE?: No VTE Risk Level:: Medical - moderate - high VTE Device Contraindication: Treatment Not Indicated VTE Drug Contraindication: N/A - Med Ordered
--- NOTE | 2022-01-18 13:08 | PC.NURSE ---
report given to floor, awaiting transport to bring pt to floor, pt refusing lunch, will notify provider
--- NOTE | 2022-01-18 13:18 | PC.NURSE ---
inulin held Mariluz Dooley was notified pt continues to refuse food, pt poc 212 and was asked by the provider to hold the insulin due to pt refusing food.
[2022-01-18] MEDS: amLODIPine Besylate 5 MG TABLET PO ×2 (13:38→17:33)
[2022-01-18 16:42] LABS: Glucose, Whole Blood 186 mg/dL (60-115)
[2022-01-18] MEDS: oxyCODONE HCl Immed Release 5 MG TABLET PO (17:33)
[2022-01-18] MEDS: 0.9 % Sodium Chloride Flush 3 ML SYRINGE IVFLUSH (20:08)
[2022-01-18] MEDS: traZODone HCL 100 MG TABLET PO (20:48)
[2022-01-18] MEDS: Gabapentin 300 MG CAPSULE PO (20:48)
[2022-01-18 21:24] LABS: Glucose, Whole Blood 156 mg/dL (60-115)
--- NOTE | 2022-01-19 04:42 | PC.NURSE ---
pt denies eating whole day. I provide one bite of peanut butter jelly sandwich with 30 mL non-fat milk. not voiding until this time.
[2022-01-19 06:29] LABS: Anion Gap 15 (12-20); Blood Urea Nitrogen 19 mg/dL (9-16); Calcium 8.8 mg/dL (8.4-10.2); Carbon Dioxide 22 mmol/L (22-29); Chloride 110 mmol/L (96-108); Creatinine Clr Calc Pharmacy 32.7; Estimated Glomerular Filt Rate 32; Glucose Random 195 mg/dL (60-115); Potassium 4.4 mmol/L (3.3-5.1); Sodium 143 mmol/L (135-145)
[2022-01-19 07:28] LABS: Glucose, Whole Blood 168 mg/dL (60-115)
[2022-01-19 07:45] VITALS: BP 176/85; PULSE 85; RESP 17; TEMP 36.9; O2SAT 94
--- NOTE | 2022-01-19 08:10 | PM.PNNEP ---
Subjective Subjective Date of Service: 01/19/22 Interval history: seen and examined this morning follow up for elevated blood pressure, creatinine improved Physical Exam Vital Signs: Vital Signs: Last Vital Signs Temp 98.4 F 01/19/22 07:45 Pulse 85 01/19/22 07:45 Resp 17 01/19/22 07:45 BP 176/85 H 01/19/22 07:45 Pulse Ox 94 01/19/22 07:45 O2 Del Method 01/19/22 07:45 BMI result Body Mass Index 34.2 Const: General: cooperative, comfortable, no acute distress, alert, awake and anxious Nutritional Appearance: overweight Orientation/consciousness: oriented to place Limitations: language barrier (Croatian speaking) HEENT: Head: Yes normal to inspection Ears: hearing grossly normal bilaterally General nose exam: Normal external nose present Face and sinus: Yes normal facial exam Mouth: Normal oral and palatal mucosa present Throat: Yes posterior oropharynx normal Eyes: General: appearance normal, both eyes and all related structures Eyelids: Yes eyelids normal Sclerae: sclerae normal Pupils: Equal, round and reactive pupils present EOM: EOMs intact bilaterally Neck: Neck: Yes normal visual inspection and Yes supple Chest: Chest palpation & inspection: normal inspection of the chest Resp: Effort & Inspection: normal respiratory effort and able to speak in complete sentences Auscultation: clear to auscultation bilaterally and diminished lung sounds Cardio: Rate: regular rate Rhythm: regular rhythm Heart sounds: S1 normal heart sound present and S2 normal heart sound present Peripheral pulses: Peripheral pulses 2+ throughout GI: Inspection: Yes normal to inspection and No distended Palpation (GI): Soft to palpation and nontender Auscultation: normal bowel sounds Back/Spine/Pelvis: Thoracic/Lumbar Spine: thoracic and lumbar spine normal to inspection Skin: General skin exam: no rashes or lesions noted Trauma: abrasion (Distal R forearm from pt scratching himself) Neuro: Other: grossly nonfocal General: oriented to place, moves all extremities and no focal motor deficits Cranial nerves: Yes Equal, round and reactive pupils present Cognition (Neuro): normal cognition Speech: No Abnormal speech present Gait exam (Neuro): Normal gait present Extrem: Other: reporting right hip pain, no erythema, bruising, decreased hip flexion, limited by pain General: Yes normal to inspection and Yes no pedal edema Psych: Speech and movement: Clear speech present Affect: Sad affect present Attitude: cooperative and Avoids eye contact (attititude/behavior) Thought process: Other thought process findings present (Disorganized) Thought content: Suicidality present (Current thoughts of self-harm with plan ) and Hallucination(s) present auditory Objective Data Labs CBC & Chem 7: 01/16/22 14:29 01/19/22 05:56 Labs: Laboratory Results - last 24 hr 01/18/22 01/18/22 01/18/22 12:16 16:38 21:12 Sodium Potassium Chloride Carbon Dioxide Anion Gap BUN Creatinine Estim Creat Clear Calc Estimated GFR POC Glucose 212 H 186 H 156 H Random Glucose Calcium 01/19/22 01/19/22 05:56 07:15 Sodium 143 Potassium 4.4 Chloride 110 H Carbon Dioxide 22 Anion Gap 15 BUN 19 H Creatinine 2.12 H Estim Creat Clear Calc 32.7 Estimated GFR 32 POC Glucose 168 H Random Glucose 195 H Calcium 8.8 Procedures Date of Service Date of Service: 01/19/22 Assessment & Plan Assessment and plan (1) LIVE (acute kidney injury): Status: Acute Assessment and Plan: improving Plan 61-year-old male with a past medical history of HTN, HLD, and diabetes who presents to the ED today via EMS due to a Section 12 placed by N for SI/auditory hallucinations admitted to medicine due to elevated Creat/BUN. Renal insufficiency probable CKD presumed DM nephropathy with 2.5 g albuminuria immunology studies pending to r/o 2nd causes renal US Normal renal cortical thickness. No hydronephrosis. Small left renal cysts.. Time Spent With Patient Time: Total time spent is greater than 50% in coordination of care (as documented) at patient's floor/unit and/or counseling patient: Progress Note: Quality Stroke Does the patient have a stroke diagnosis?: No
[2022-01-19] MEDS: Atorvastatin Calcium 20 MG TABLET PO (08:17)
[2022-01-19] MEDS: amLODIPine Besylate 10 MG TABLET PO (08:17)
[2022-01-19] MEDS: 0.9 % Sodium Chloride Flush 3 ML SYRINGE IVFLUSH ×3 (08:18→21:28)
[2022-01-19] MEDS: Acetaminophen 325 MG TABLET 650 MG PO (08:31)
[2022-01-19] MEDS: Insulin Lispro 100 UNIT/ML 3 ML VIAL SUBCUT ×4 (08:33→21:27)
[2022-01-19 11:16] LABS: Glucose, Whole Blood 214 mg/dL (60-115)
--- NOTE | 2022-01-19 11:36 | P.PNIM_ITS ---
Subjective Subjective Date of Service: 01/19/22 Interval History: seen and examined this morning follow up for elevated blood pressure, creatinine and on section 12 reporting right hip pain this morning, denies fall Review of Systems Review of Systems: Yes all other systems are reviewed and are negative Constitutional Constitutional: Denies chills and Denies fever(s) Cardiovascular Cardiovascular: Denies chest pain and Denies palpitations Gastrointestinal Gastrointestinal: Denies abdominal pain, Denies nausea and Denies vomiting Endocrine Endocrine: Denies palpitations Physical Exam Vital Signs: Vital Signs: Last Vital Signs Temp 98.4 F 01/19/22 07:45 Pulse 85 01/19/22 07:45 Resp 17 01/19/22 07:45 BP 176/85 H 01/19/22 07:45 Pulse Ox 94 01/19/22 07:45 O2 Del Method 01/19/22 07:45 BMI result Body Mass Index 34.2 Appearing in no acute distress lung sounds are clear to auscultation heart regular rate rhythm, clear S1, S2 positive bowel sounds, abdomen is soft, nontender neuro patient is alert x3, no focal deficits Objective Data Active Medications Acetaminophen (Acetaminophen 325 Mg Tablet) 650 mg PO Q6H PRN PRN Reason: Pain, Mild (Pain Scale 1-3) Last Admin: 01/19/22 08:31 Dose: 650 mg Documented By: DANYELLE Amlodipine Besylate (Amlodipine Besylate 10 Mg Tablet) 10 mg PO DAILY [facility]; Protocol Last Admin: 01/19/22 08:17 Dose: 10 mg Documented By: DANYELLE Atorvastatin Calcium (Atorvastatin Calcium 20 Mg Tablet) 20 mg PO DAILY [facility] Last Admin: 01/19/22 08:17 Dose: 20 mg Documented By: DANYELLE Dextrose (Dextrose 50 % 25 Gm/50 Ml Syringe) 25 gm IVPUSH Q15M PRN; Protocol PRN Reason: per Hypoglycemia Standing Ord. Docusate Sodium (Docusate Sodium 100 Mg Capsule) 100 mg PO DAILY PRN PRN Reason: Constipation Gabapentin (Gabapentin 300 Mg Capsule) 300 mg PO BEDTIME PRN PRN Reason: neuropathic pain Last Admin: 01/18/22 20:48 Dose: 300 mg Documented By: EDILMA Glucose (Glucose Gel 15 Gm Gel..Gram.) 15 gm PO Q15M PRN; Protocol PRN Reason: per Hypoglycemia Standing Ord. Heparin Sodium (Porcine) (Heparin Sodium,Porcine 5,000 Unit/Ml Vial) 5,000 unit SUBCUT Q12H [facility] Last Admin: 01/18/22 20:48 Dose: 5,000 unit Documented By: EDILMA Insulin Human Lispro (Insulin Lispro 100 Unit/Ml 3 Ml Vial) 0 unit SUBCUT QIDACHS [facility]; Protocol Last Admin: 01/19/22 08:33 Dose: 2 unit Documented By: DANYELLE Ondansetron HCl (Ondansetron Hcl 4 Mg/2 Ml Vial) 4 mg IVPUSH Q8H PRN PRN Reason: Nausea and Vomiting Oxycodone HCl (Oxycodone Hcl Immed Release 5 Mg Tablet) 5 mg PO Q6H PRN PRN Reason: Pain, Moderate (Pain Scale 4-6 Last Admin: 01/18/22 17:33 Dose: 5 mg Documented By: COTEMA Sodium Chloride (0.9 % Sodium Chloride Flush 3 Ml Syringe) 3 ml IVFLUSH QSHIFT [facility] Last Admin: 01/19/22 08:18 Dose: 3 ml Documented By: DANYELLE Trazodone HCl (Trazodone Hcl 100 Mg Tablet) 100 mg PO BEDTIME [facility] Last Admin: 01/18/22 20:48 Dose: 100 mg Documented By: EDILMA Labs CBC & Chem 7: 01/16/22 14:29 01/19/22 05:56 Labs: Laboratory Results - last 24 hr 01/18/22 01/18/22 01/18/22 12:16 16:38 21:12 Anion Gap Estim Creat Clear Calc Estimated GFR POC Glucose 212 H 186 H 156 H Random Glucose Calcium 01/19/22 01/19/22 01/19/22 05:56 07:15 11:11 Anion Gap 15 Estim Creat Clear Calc 32.7 Estimated GFR 32 POC Glucose 168 H 214 H Random Glucose 195 H Calcium 8.8 Assessment and Plan (1) LIVE (acute kidney injury): Status: Acute Plan 61-year-old male with a past medical history of HTN, HLD, and diabetes who presents to the ED today via EMS due to a Section 12 placed by N for SI/a uditory hallucinations admitted to medicine due to elevated Creat/BUN. Renal insufficiency probable CKD seen by nephrology renal us neg hold lisinopril Nephrology following Right hip pain Neg xray for fracture AI/AH On section 12 Will need crisis on discharge for bed search Continue sitter Uncontrolled type 2 diabetes HbA1c 10.9 ADA diet, POCs, SSI Hypertension BP elevated on arrival BP high overnight, received IV hydralazine, IV labetalol, nitropaste. Then BP low (does not appear to be documented) hold lisinopril due to elevated renal function monitor BP, will start norvasc if continues to be elevated HLD Continue statin Diabetic neuropathy Continue gabapentin DVT prophylaxis- heparin Full code Attending Dr. Lazcano Patient requires ongoing inpatient hospitalization for evaluation of his elevated creatinine. will need BHN eval and possible likely inpatient psych Quality Stroke Does the patient have a stroke diagnosis?: No VTE Prior VTE?: No VTE Risk Level:: Medical - moderate - high VTE Device Contraindication: Treatment Not Indicated VTE Drug Contraindication: N/A - Med Ordered
[2022-01-19] MEDS: Heparin Sodium,Porcine 5,000 UNIT/ML VIAL 5000 UNIT SUBCUT ×2 (12:03→21:27)
[2022-01-19 16:00] VITALS: BP 178/87; PULSE 83; RESP 16; TEMP 36.5; O2SAT 97
[2022-01-19 16:36] LABS: Glucose, Whole Blood 202 mg/dL (60-115)
[2022-01-19] MEDS: hydrALAZINE HCl 10 MG TABLET PO ×2 (16:45→21:27)
[2022-01-19 19:57] VITALS: BP 155/88; PULSE 81; RESP 18; TEMP 36.5; O2SAT 97
[2022-01-19 21:16] LABS: Glucose, Whole Blood 224 mg/dL (60-115)
[2022-01-19] MEDS: traZODone HCL 100 MG TABLET PO (21:52)
[2022-01-20] VITALS: BP 158/70; PULSE 80; RESP 18; TEMP 36.6; O2SAT 97
--- NOTE | 2022-01-20 04:26 | PC.NURSE ---
pt pulled out the IV line, dr notified it. no IV meds at current daily medications.
[2022-01-20 07:18] LABS: Anion Gap 15 (12-20); Blood Urea Nitrogen 31 mg/dL (9-16); Calcium 8.9 mg/dL (8.4-10.2); Carbon Dioxide 23 mmol/L (22-29); Chloride 106 mmol/L (96-108); Creatinine Clr Calc Pharmacy 27.2; Estimated Glomerular Filt Rate 26; Glucose Random 254 mg/dL (60-115); Potassium 4.5 mmol/L (3.3-5.1); Sodium 139 mmol/L (135-145)
[2022-01-20 08:06] LABS: Glucose, Whole Blood 230 mg/dL (60-115)
[2022-01-20 08:31] VITALS: BP 152/68; PULSE 81; RESP 16; TEMP 36.5; O2SAT 98
[2022-01-20] MEDS: Insulin Lispro 100 UNIT/ML 3 ML VIAL SUBCUT ×3 (08:33→11:49)
[2022-01-20] MEDS: hydrALAZINE HCl 10 MG TABLET PO ×3 (08:33→20:08)
[2022-01-20] MEDS: Atorvastatin Calcium 20 MG TABLET PO (08:33)
[2022-01-20] MEDS: 0.9 % Sodium Chloride Flush 3 ML SYRINGE IVFLUSH ×2 (08:33→20:09)
[2022-01-20] MEDS: amLODIPine Besylate 10 MG TABLET PO (08:33)
[2022-01-20] MEDS: 0.9 % Sodium Chloride 1,000 ML 100 ML IVCONT ×2 (09:16→17:30)
--- NOTE | 2022-01-20 09:33 | P.PNIM_ITS ---
Subjective Subjective Date of Service: 01/20/22 Interval History: follow up for elevated blood pressure, creatinine and on section 12 Feeling better today some pain with ambulation Review of Systems Review of Systems: Yes all other systems are reviewed and are negative Constitutional Constitutional: Denies chills and Denies fever(s) Cardiovascular Cardiovascular: Denies chest pain and Denies palpitations Gastrointestinal Gastrointestinal: Denies abdominal pain, Denies nausea and Denies vomiting Endocrine Endocrine: Denies palpitations Physical Exam Vital Signs: Vital Signs: Last Vital Signs Temp 97.7 F 01/20/22 08:31 Pulse 81 01/20/22 08:31 Resp 16 01/20/22 08:31 BP 152/68 H 01/20/22 08:31 Pulse Ox 98 01/20/22 08:31 O2 Del Method 01/20/22 08:31 BMI result Body Mass Index 34.2 Appearing in no acute distress lung sounds are clear to auscultation heart regular rate rhythm, clear S1, S2 positive bowel sounds, abdomen is soft, nontender neuro patient is alert x3, no focal deficits Objective Data Active Medications Acetaminophen (Acetaminophen 325 Mg Tablet) 650 mg PO Q6H PRN PRN Reason: Pain, Mild (Pain Scale 1-3) Last Admin: 01/19/22 08:31 Dose: 650 mg Documented By: DANYELLE Amlodipine Besylate (Amlodipine Besylate 10 Mg Tablet) 10 mg PO DAILY [facility]; Protocol Last Admin: 01/20/22 08:33 Dose: 10 mg Documented By: DANYELLE Atorvastatin Calcium (Atorvastatin Calcium 20 Mg Tablet) 20 mg PO DAILY [facility] Last Admin: 01/20/22 08:33 Dose: 20 mg Documented By: DANYELLE Dextrose (Dextrose 50 % 25 Gm/50 Ml Syringe) 25 gm IVPUSH Q15M PRN; Protocol PRN Reason: per Hypoglycemia Standing Ord. Docusate Sodium (Docusate Sodium 100 Mg Capsule) 100 mg PO DAILY PRN PRN Reason: Constipation Gabapentin (Gabapentin 300 Mg Capsule) 300 mg PO BEDTIME PRN PRN Reason: neuropathic pain Last Admin: 01/18/22 20:48 Dose: 300 mg Documented By: EDILMA Glucose (Glucose Gel 15 Gm Gel..Gram.) 15 gm PO Q15M PRN; Protocol PRN Reason: per Hypoglycemia Standing Ord. Heparin Sodium (Porcine) (Heparin Sodium,Porcine 5,000 Unit/Ml Vial) 5,000 unit SUBCUT Q12H [facility] Last Admin: 01/19/22 21:27 Dose: 5,000 unit Documented By: EDILMA Hydralazine HCl (Hydralazine Hcl 10 Mg Tablet) 10 mg PO TID [facility]; Protocol Last Admin: 01/20/22 08:33 Dose: 10 mg Documented By: DANYELLE Sodium Chloride (Ns) 1,000 mls @ 100 mls/hr IVCONT .Q10H [facility] Last Admin: 01/20/22 09:16 Dose: 100 mls/hr Documented By: DANYELLE Insulin Human Lispro (Insulin Lispro 100 Unit/Ml 3 Ml Vial) 0 unit SUBCUT QIDACHS [facility]; Protocol Last Admin: 01/20/22 08:33 Dose: 4 unit Documented By: DANYELLE Ondansetron HCl (Ondansetron Hcl 4 Mg/2 Ml Vial) 4 mg IVPUSH Q8H PRN PRN Reason: Nausea and Vomiting Oxycodone HCl (Oxycodone Hcl Immed Release 5 Mg Tablet) 5 mg PO Q6H PRN PRN Reason: Pain, Moderate (Pain Scale 4-6 Last Admin: 01/18/22 17:33 Dose: 5 mg Documented By: COTEMA Sodium Chloride (0.9 % Sodium Chloride Flush 3 Ml Syringe) 3 ml IVFLUSH QSHIFT [facility] Last Admin: 01/20/22 08:33 Dose: 3 ml Documented By: DANYELLE Trazodone HCl (Trazodone Hcl 100 Mg Tablet) 100 mg PO BEDTIME [facility] Last Admin: 01/19/22 21:52 Dose: 100 mg Documented By: EDILMA Labs CBC & Chem 7: 01/16/22 14:29 01/20/22 05:46 Labs: Laboratory Results - last 24 hr 01/19/22 01/19/22 01/19/22 11:11 16:30 21:01 Anion Gap Estim Creat Clear Calc Estimated GFR POC Glucose 214 H 202 H 224 H Random Glucose Calcium 01/20/22 01/20/22 05:46 07:14 Anion Gap 15 Estim Creat Clear Calc 27.2 Estimated GFR 26 POC Glucose 230 H Random Glucose 254 H Calcium 8.9 Assessment and Plan (1) LIVE (acute kidney injury): Status: Acute Plan 61-year-old male with a past medical history of HTN, HLD, and diabetes who presents to the ED today via EMS due to a Section 12 placed by BHN for SI/auditory hallucinations admitted to medicine due to elevated Creat/BUN. Renal insufficiency probable CKD seen by nephrology renal us neg hold lisinopril NS@100 x 1 liter today Nephrology following Right hip pain Neg xray for fracture OOB to chair AI/AH On section 12 Will need crisis on discharge for bed search Continue sitter Uncontrolled type 2 diabetes HbA1c 10.9 ADA diet, POCs, SSI add mealtime insulin Hypertension BP elevated on arrival Lisinopril held d/t LIVE/CKD Continue Norvasc Hydralazine added TID po HLD Continue statin Diabetic neuropathy Continue gabapentin DVT prophylaxis- heparin Full code Attending Dr. Lazcano DISPO Plan for tx to inpatient psych once bed available Patient requires ongoing inpatient hospitalization for evaluation of his elevated creatinine. will need BHN eval and possible likely inpatient psych Quality Stroke Does the patient have a stroke diagnosis?: No VTE Prior VTE?: No VTE Risk Level:: Medical - moderate - high VTE Device Contraindication: Treatment Not Indicated VTE Drug Contraindication: N/A - Med Ordered
[2022-01-20 11:38] LABS: Glucose, Whole Blood 241 mg/dL (60-115)
[2022-01-20] MEDS: Heparin Sodium,Porcine 5,000 UNIT/ML VIAL 5000 UNIT SUBCUT ×2 (11:49→22:35)
--- NOTE | 2022-01-20 12:55 | P.PNNP_ITS ---
Subjective Subjective Date of Service: 01/20/22 Interval history: Feeling better today some pain with ambulation Physical Exam Vital Signs: Vital Signs: Last Vital Signs Temp 97.7 F 01/20/22 08:31 Pulse 81 01/20/22 08:31 Resp 16 01/20/22 08:31 BP 152/68 H 01/20/22 08:31 Pulse Ox 98 01/20/22 08:31 O2 Del Method 01/20/22 08:31 BMI result Body Mass Index 34.2 Const: General: cooperative, comfortable, no acute distress, alert, awake and anxious Nutritional Appearance: overweight Orientation/consciousness: oriented to place Limitations: language barrier (English speaking) HEENT: Head: Yes normal to inspection Ears: hearing grossly normal bilaterally General nose exam: Normal external nose present Face and sinus: Yes normal facial exam Mouth: Normal oral and palatal mucosa present Throat: Yes posterior oropharynx normal Eyes: General: appearance normal, both eyes and all related structures Eyelids: Yes eyelids normal Sclerae: sclerae normal Pupils: Equal, round and reactive pupils present EOM: EOMs intact bilaterally Neck: Neck: Yes normal visual inspection and Yes supple Chest: Chest palpation & inspection: normal inspection of the chest Resp: Effort & Inspection: normal respiratory effort and able to speak in complete sentences Auscultation: clear to auscultation bilaterally and diminished lung sounds Cardio: Rate: regular rate Rhythm: regular rhythm Heart sounds: S1 normal heart sound present and S2 normal heart sound present Peripheral pulses: Peripheral pulses 2+ throughout GI: Inspection: Yes normal to inspection and No distended Palpation (GI): Soft to palpation and nontender Auscultation: normal bowel sounds Back/Spine/Pelvis: Thoracic/Lumbar Spine: thoracic and lumbar spine normal to inspection Skin: General skin exam: no rashes or lesions noted Trauma: abrasion (Distal R forearm from pt scratching himself) Neuro: General: oriented to place, moves all extremities and no focal motor deficits Cranial nerves: Yes Equal, round and reactive pupils present Cognition (Neuro): normal cognition Speech: No Abnormal speech present Gait exam (Neuro): Normal gait present Extrem: General: Yes normal to inspection and Yes no pedal edema Psych: Speech and movement: Clear speech present Affect: Sad affect present Attitude: cooperative and Avoids eye contact (attititude/behavior) Thought process: Other thought process findings present (Disorganized) Thought content: Suicidality present (Current thoughts of self-harm with plan ) and Hallucination(s) present auditory Objective Data Labs CBC & Chem 7: 01/16/22 14:29 01/20/22 05:46 Labs: Laboratory Results - last 24 hr 01/19/22 01/19/22 01/20/22 16:30 21:01 05:46 Sodium 139 Potassium 4.5 Chloride 106 Carbon Dioxide 23 Anion Gap 15 BUN 31 H D Creatinine 2.55 H Estim Creat Clear Calc 27.2 Estimated GFR 26 POC Glucose 202 H 224 H Random Glucose 254 H Calcium 8.9 01/20/22 01/20/22 07:14 11:14 Sodium Potassium Chloride Carbon Dioxide Anion Gap BUN Creatinine Estim Creat Clear Calc Estimated GFR POC Glucose 230 H 241 H Random Glucose Calcium Procedures Date of Service Date of Service: 01/20/22 Assessment & Plan Assessment and plan (1) LIVE (acute kidney injury): Status: Acute Plan 61-year-old male with a past medical history of HTN, HLD, and diabetes who presents to the ED today via EMS due to a Section 12 placed by N for SI/au ditory hallucinations admitted to medicine due to elevated Creat/BUN. Renal insufficiency probable CKD presumed DM nephropathy with 2.5 g albuminuria immunology studies pending to r/o 2nd causes renal US?Normal renal cortical thickness. No hydronephrosis. Small left renal cysts. creat up a bit but fluctuates no new suggestions Progress Note: Quality Stroke Does the patient have a stroke diagnosis?: No
[2022-01-20 12:56] LABS: Calcium (PTHI) 8.2 mg/dL (8.6-10.3); PTHI 143 pg/mL (16-77)
[2022-01-20 15:33] VITALS: BP 172/79; PULSE 78; RESP 18; TEMP 36.7; O2SAT 98
[2022-01-20] MEDS: Docusate Sodium 100 MG CAPSULE PO (15:47)
[2022-01-20 16:26] LABS: Glucose, Whole Blood 158 mg/dL (60-115)
[2022-01-20 19:21] VITALS: BP 164/82; PULSE 83; RESP 18; TEMP 36.6; O2SAT 97
[2022-01-20] MEDS: traZODone HCL 100 MG TABLET PO (20:08)
[2022-01-20] MEDS: Gabapentin 300 MG CAPSULE PO (20:08)
[2022-01-20 20:11] LABS: Glucose, Whole Blood 178 mg/dL (60-115)
[2022-01-20 23:36] VITALS: BP 158/82; PULSE 84; RESP 18; TEMP 36.4; O2SAT 96
[2022-01-21] MEDS: 0.9 % Sodium Chloride 1,000 ML 100 ML IVCONT (02:30)
[2022-01-21 08:00] VITALS: BP 170/80; PULSE 90; RESP 16; TEMP 36.9; O2SAT 96
[2022-01-21 08:48] LABS: Glucose, Whole Blood 194 mg/dL (60-115)
[2022-01-21] MEDS: Atorvastatin Calcium 20 MG TABLET PO (09:26)
[2022-01-21] MEDS: amLODIPine Besylate 10 MG TABLET PO (09:26)
[2022-01-21] MEDS: hydrALAZINE HCl 10 MG TABLET PO (09:26)
[2022-01-21 10:03] LABS: Anion Gap 15 (12-20); Blood Urea Nitrogen 33 mg/dL (9-16); Calcium 8.6 mg/dL (8.4-10.2); Carbon Dioxide 21 mmol/L (22-29); Chloride 113 mmol/L (96-108); Creatinine Clr Calc Pharmacy 30.3; Estimated Glomerular Filt Rate 29; Glucose Random 211 mg/dL (60-115); Potassium 4.5 mmol/L (3.3-5.1); Sodium 144 mmol/L (135-145)
--- NOTE | 2022-01-21 10:24 | P.PNNP_ITS ---
Subjective Subjective Date of Service: 01/21/22 Interval history: Seen adn examiend, events noted Physical Exam Vital Signs: Vital Signs: Last Vital Signs Temp 98.5 F 01/21/22 08:00 Pulse 90 01/21/22 08:00 Resp 16 01/21/22 08:00 BP 170/80 H 01/21/22 08:00 Pulse Ox 96 01/21/22 08:00 O2 Del Method 01/21/22 08:00 BMI result Body Mass Index 34.2 Const: General: cooperative, comfortable, no acute distress, alert, awake and anxious Nutritional Appearance: overweight Orientation/consciousness: oriented to place Limitations: language barrier (Romanian speaking) HEENT: Head: Yes normal to inspection Ears: hearing grossly normal bilaterally General nose exam: Normal external nose present Face and sinus: Yes normal facial exam Mouth: Normal oral and palatal mucosa present Throat: Yes posterior oropharynx normal Eyes: General: appearance normal, both eyes and all related structures Eyelids: Yes eyelids normal Sclerae: sclerae normal Pupils: Equal, round and reactive pupils present EOM: EOMs intact bilaterally Neck: Neck: Yes normal visual inspection and Yes supple Chest: Chest palpation & inspection: normal inspection of the chest Resp: Effort & Inspection: normal respiratory effort and able to speak in complete sentences Auscultation: clear to auscultation bilaterally and diminished lung sounds Cardio: Rate: regular rate Rhythm: regular rhythm Heart sounds: S1 normal heart sound present and S2 normal heart sound present Peripheral pulses: Peripheral pulses 2+ throughout GI: Inspection: Yes normal to inspection and No distended Palpation (GI): Soft to palpation and nontender Auscultation: normal bowel sounds Back/Spine/Pelvis: Thoracic/Lumbar Spine: thoracic and lumbar spine normal to inspection Skin: General skin exam: no rashes or lesions noted Trauma: abrasion (Distal R forearm from pt scratching himself) Neuro: Other: grossly nonfocal General: oriented to place, moves all extremities and no focal motor deficits Cranial nerves: Yes Equal, round and reactive pupils present Cognition (Neuro): normal cognition Speech: No Abnormal speech present Gait exam (Neuro): Normal gait present Extrem: Other: reporting right hip pain, no erythema, bruising, decreased hip flexion, limited by pain General: Yes normal to inspection and Yes no pedal edema Psych: Speech and movement: Clear speech present Affect: Sad affect present Attitude: cooperative and Avoids eye contact (attititude/behavior) Thought process: Other thought process findings present (Disorganized) Thought content: Suicidality present (Current thoughts of self-harm with plan ) and Hallucination(s) present auditory Objective Data Labs CBC & Chem 7: 01/16/22 14:29 01/21/22 08:31 Labs: Laboratory Results - last 24 hr 01/18/22 01/20/22 01/20/22 05:49 11:14 15:35 Sodium Potassium Chloride Carbon Dioxide Anion Gap BUN Creatinine Estim Creat Clear Calc Estimated GFR POC Glucose 241 H 158 H Random Glucose Calcium PTH Intact 143 H Calcium (PTH Intact) 8.2 L 01/20/22 01/21/22 01/21/22 19:37 08:02 08:31 Sodium 144 Potassium 4.5 Chloride 113 H Carbon Dioxide 21 L Anion Gap 15 BUN 33 H Creatinine 2.29 H Estim Creat Clear Calc 30.3 Estimated GFR 29 POC Glucose 178 H 194 H Random Glucose 211 H Calcium 8.6 PTH Intact Calcium (PTH Intact) Procedures Date of Service Date of Service: 01/21/22 Assessment & Plan Assessment and plan (1) LIVE (acute kidney injury): Status: Acute Plan 61-year-old male with a past medical history of HTN, HLD, and diabetes who presents to the ED today via EMS due to a Section 12 placed by N for SI/auditory hallucinations admitted to medicine due to elevated Creat/BUN. 1. CKD 3: Scr 2.0-2.5 range and w/u most c/w DN given UPCR 2.5 and sero w/u thus far unrevealing; ideally would consider a kidney Bx but willhold off on Bx and reassess as oupt 2. HTN: poorly controled; goal < 130/80 CKD prog protection: add RASi ( LIZET or ARB) ; SGLT2i; avoid NSAID, BS/BP control REC: add lorsartan 50 qd; look to add SGLT2i as outp ; track BP/BS; chek PTH; oupt f/u re CKD management and possible kidney Bx Renal insufficiency Time Spent With Patient Time: Total time spent is greater than 50% in coordination of care (as documented) at patient's floor/unit and/or counseling patient: Progress Note: Quality Stroke Does the patient have a stroke diagnosis?: No
[2022-01-21 11:29] LABS: Glucose, Whole Blood 173 mg/dL (60-115)
--- NOTE | 2022-01-21 11:50 | P.PNIM_ITS ---
Subjective Subjective Date of Service: 01/21/22 Interval History: Follow up for elevated blood pressure, creatinine and on section 12 Review of Systems Review of Systems: Yes all other systems are reviewed and are negative Constitutional Constitutional: Denies chills and Denies fever(s) Cardiovascular Cardiovascular: Denies chest pain and Denies palpitations Gastrointestinal Gastrointestinal: Denies abdominal pain, Denies nausea and Denies vomiting Endocrine Endocrine: Denies palpitations Physical Exam Vital Signs: Vital Signs: Last Vital Signs Temp 98.5 F 01/21/22 08:00 Pulse 90 01/21/22 08:00 Resp 16 01/21/22 08:00 BP 170/80 H 01/21/22 08:00 Pulse Ox 96 01/21/22 08:00 O2 Del Method 01/21/22 08:00 BMI result Body Mass Index 34.2 Appearing in no acute distress lung sounds are clear to auscultation heart regular rate rhythm, clear S1, S2 positive bowel sounds, abdomen is soft, nontender neuro patient is alert x3, no focal deficits Objective Data Active Medications Acetaminophen (Acetaminophen 325 Mg Tablet) 650 mg PO Q6H PRN PRN Reason: Pain, Mild (Pain Scale 1-3) Last Admin: 01/19/22 08:31 Dose: 650 mg Documented By: DANYELLE Amlodipine Besylate (Amlodipine Besylate 10 Mg Tablet) 10 mg PO DAILY [facility]; Pro tocol Last Admin: 01/21/22 09:26 Dose: 10 mg Documented By: JEFF Atorvastatin Calcium (Atorvastatin Calcium 20 Mg Tablet) 20 mg PO DAILY [facility] Last Admin: 01/21/22 09:26 Dose: 20 mg Documented By: JEFF Dextrose (Dextrose 50 % 25 Gm/50 Ml Syringe) 25 gm IVPUSH Q15M PRN; Protocol PRN Reason: per Hypoglycemia Standing Ord. Docusate Sodium (Docusate Sodium 100 Mg Capsule) 100 mg PO DAILY PRN PRN Reason: Constipation Last Admin: 01/20/22 15:47 Dose: 100 mg Documented By: DANYELLE Gabapentin (Gabapentin 300 Mg Capsule) 300 mg PO BEDTIME PRN PRN Reason: neuropathic pain Last Admin: 01/20/22 20:08 Dose: 300 mg Documented By: CADENCE Glucose (Glucose Gel 15 Gm Gel..Gram.) 15 gm PO Q15M PRN; Protocol PRN Reason: per Hypoglycemia Standing Ord. Heparin Sodium (Porcine) (Heparin Sodium,Porcine 5,000 Unit/Ml Vial) 5,000 unit SUBCUT Q12H [facility] Last Admin: 01/20/22 22:35 Dose: 5,000 unit Documented By: CADENCE Hydralazine HCl (Hydralazine Hcl 10 Mg Tablet) 20 mg PO TID [facility]; Protocol Insulin Human Lispro (Insulin Lispro 100 Unit/Ml 3 Ml Vial) 0 unit SUBCUT QIDACHS [facility]; Protocol Last Admin: 01/21/22 08:35 Dose: Not Given Documented By: KENYATTA Non-Admin Reason: pt not eating Insulin Human Lispro (Insulin Lispro 100 Unit/Ml 3 Ml Vial) 5 unit SUBCUT QI DACHS [facility] Last Admin: 01/21/22 08:36 Dose: Not Given Documented By: KENYATTA Non-Admin Reason: pt not eating Losartan Potassium (Losartan Potassium 50 Mg Tablet) 50 mg PO DAILY [facility]; Pr otocol Ondansetron HCl (Ondansetron Hcl 4 Mg/2 Ml Vial) 4 mg IVPUSH Q8H PRN PRN Reason: Nausea and Vomiting Oxycodone HCl (Oxycodone Hcl Immed Release 5 Mg Tablet) 5 mg PO Q6H PRN PRN Reason: Pain, Moderate (Pain Scale 4-6 Last Admin: 01/18/22 17:33 Dose: 5 mg Documented By: COTEMA Sodium Chloride (0.9 % Sodium Chloride Flush 3 Ml Syringe) 3 ml IVFLUSH QSHIFT [facility] Last Admin: 01/21/22 07:58 Dose: Not Given Documented By: KENYATTA Non-Admin Reason: IV Running Trazodone HCl (Trazodone Hcl 100 Mg Tablet) 100 mg PO BEDTIME [facility] Last Admin: 01/20/22 20:08 Dose: 100 mg Documented By: CADENCE Labs CBC & Chem 7: 01/16/22 14:29 01/21/22 08:31 Labs: Laboratory Results - last 24 hr 01/18/22 01/20/22 01/20/22 05:49 15:35 19:37 Anion Gap Estim Creat Clear Calc Estimated GFR POC Glucose 158 H 178 H Random Glucose Calcium PTH Intact 143 H Calcium (PTH Intact) 8.2 L 01/21/22 01/21/22 01/21/22 08:02 08:31 10:58 Anion Gap 15 Estim Creat Clear Calc 30.3 Estimated GFR 29 POC Glucose 194 H 173 H Random Glucose 211 H Calcium 8.6 PTH Intact Calcium (PTH Intact) Assessment and Plan (1) LIVE (acute kidney injury): Status: Acute Plan 61-year-old male with a past medical history of HTN, HLD, and diabetes who presents to the ED today via EMS due to a Section 12 placed by BHN for SI/auditory hallucinations admitted to medicine due to elevated Creat/BUN. Renal insufficiency probable CKD seen by nephrology renal us neg s/p NS@100 Follow BP closely Renal biopsy o/p Nephrology following Right hip pain Neg xray for fracture OOB to chair AI/AH On section 12 Will need crisis on discharge for bed search Continue sitter Uncontrolled type 2 diabetes HbA1c 10.9 ADA diet, POCs, SSI add mealtime insulin Hypertension BP elevated on arrival Lisinopril held d/t LIVE/CKD Continue Norvasc Hydralazine added TID po add losartan as per nephrology HLD Continue statin Diabetic neuropathy Continue gabapentin DVT prophylaxis- heparin Full code Attending Dr. Shaw DISPO Plan for tx to inpatient psych once bed available Patient requires ongoing inpatient hospitalization for evaluation of his elevated creatinine. will need BHN eval and possible likely inpatient psych Quality Stroke Does the patient have a stroke diagnosis?: No VTE Prior VTE?: No VTE Risk Level:: Medical - moderate - high VTE Device Contraindication: Treatment Not Indicated VTE Drug Contraindication: N/A - Med Ordered
[2022-01-21 11:56] VITALS: BP 172/81; PULSE 87; RESP 12; TEMP 36.2; O2SAT 96
[2022-01-21] MEDS: hydrALAZINE HCl 10 MG TABLET 20 MG PO ×2 (12:14→18:21)
[2022-01-21] MEDS: Heparin Sodium,Porcine 5,000 UNIT/ML VIAL 5000 UNIT SUBCUT ×2 (12:14→22:07)
[2022-01-21] MEDS: Losartan Potassium 50 MG TABLET PO (12:14)
[2022-01-21 15:37] VITALS: BP 147/77; PULSE 89; RESP 18; TEMP 36.7; O2SAT 95
[2022-01-21 16:28] LABS: Glucose, Whole Blood 187 mg/dL (60-115)
[2022-01-21 17:31] LABS: Glucose, Whole Blood 186 mg/dL (60-115)
[2022-01-21 18:23] VITALS: BP 164/82
[2022-01-21] MEDS: 0.9 % Sodium Chloride Flush 3 ML SYRINGE IVFLUSH ×2 (19:02→22:12)
--- NOTE | 2022-01-21 19:04 | PC.NURSE ---
Addendum entered by Anabel Reyes 01/22/22 03:24: Patient remains 1:1 with a sitter, Camera in room. Addendum entered by Anabel Reyes 01/22/22 03:15: Patient was able to tolerate a little minestrone soup later. WAs given 2 units of Insulin for Blood sugar @191mg/dl. 5 units scheduled Insulin not given due to insufficient meal taken.. Original Note: Patient refusing to eat. Family was at bedside to encourage patient to eat but he refused. RN encouraged and he Tolerated a cup of jello. patient refused ordered hamburger, ordered soups he stated will eat that later. Unable to give insulin due to refusal to eat. Will keep monitoring.
[2022-01-21 19:41] VITALS: BP 174/82; PULSE 82; RESP 20; TEMP 36.4; O2SAT 95
[2022-01-21 20:07] LABS: Glucose, Whole Blood 191 mg/dL (60-115)
[2022-01-21 21:27] LABS: IgA 245 mg/dL (47-310); IgG 794 mg/dL (600-1640); IgM 83 mg/dL (50-300)
[2022-01-21 21:57] LABS: Anti Glomerular Basement Memb <1.0 AI; Myeloperoxidase Antibody <1.0 AI; Proteinase 3 PR3 Antibodies <1.0 AI
[2022-01-21] MEDS: traZODone HCL 100 MG TABLET PO (22:04)
[2022-01-21] MEDS: Insulin Lispro 100 UNIT/ML 3 ML VIAL SUBCUT (22:17)
[2022-01-22] VITALS (12 sets, daily range): BP systolic 126–201; BP diastolic 65–97; PULSE 80–89; RESP 16–20; TEMP 36.4–37.2; O2SAT 95–98
[2022-01-22] MEDS: hydrALAZINE HCl 10 MG TABLET 20 MG PO ×4 (01:21→21:38)
[2022-01-22] MEDS: Docusate Sodium 100 MG CAPSULE PO (06:09)
[2022-01-22 07:53] LABS: Glucose, Whole Blood 170 mg/dL (60-115)
[2022-01-22] MEDS: Insulin Lispro 100 UNIT/ML 3 ML VIAL SUBCUT ×7 (08:46→21:38)
[2022-01-22] MEDS: amLODIPine Besylate 10 MG TABLET PO (08:46)
[2022-01-22] MEDS: Atorvastatin Calcium 20 MG TABLET PO (08:46)
[2022-01-22] MEDS: Losartan Potassium 50 MG TABLET PO ×2 (08:46→11:38)
[2022-01-22] MEDS: 0.9 % Sodium Chloride Flush 3 ML SYRINGE IVFLUSH ×3 (08:46→21:39)
--- NOTE | 2022-01-22 10:10 | PM.PNNEP ---
Subjective Subjective Date of Service: 01/22/22 Interval history: Seen and examined, events noted Physical Exam Vital Signs: Vital Signs: Last Vital Signs Temp 97.8 F 01/22/22 07:47 Pulse 82 01/22/22 07:47 Resp 20 01/22/22 07:47 BP 168/77 H 01/22/22 07:47 Pulse Ox 97 01/22/22 07:47 O2 Del Method 01/22/22 07:47 BMI result Body Mass Index 34.2 Const: General: cooperative, comfortable, no acute distress, alert, awake and anxious Nutritional Appearance: overweight Orientation/consciousness: oriented to place Limitations: language barrier (Latvian speaking) HEENT: Head: Yes normal to inspection Ears: hearing grossly normal bilaterally General nose exam: Normal external nose present Face and sinus: Yes normal facial exam Mouth: Normal oral and palatal mucosa present Throat: Yes posterior oropharynx normal Eyes: General: appearance normal, both eyes and all related structures Eyelids: Yes eyelids normal Sclerae: sclerae normal Pupils: Equal, round and reactive pupils present EOM: EOMs intact bilaterally Neck: Neck: Yes normal visual inspection and Yes supple Chest: Chest palpation & inspection: normal inspection of the chest Resp: Effort & Inspection: normal respiratory effort and able to speak in complete sentences Auscultation: clear to auscultation bilaterally and diminished lung sounds Cardio: Rate: regular rate Rhythm: regular rhythm Heart sounds: S1 normal heart sound present and S2 normal heart sound present Peripheral pulses: Peripheral pulses 2+ throughout GI: Inspection: Yes normal to inspection and No distended Palpation (GI): Soft to palpation and nontender Auscultation: normal bowel sounds Back/Spine/Pelvis: Thoracic/Lumbar Spine: thoracic and lumbar spine normal to inspection Skin: General skin exam: no rashes or lesions noted Trauma: abrasion (Distal R forearm from pt scratching himself) Neuro: Other: grossly nonfocal General: oriented to place, moves all extremities and no focal motor deficits Cranial nerves: Yes Equal, round and reactive pupils present Cognition (Neuro): normal cognition Speech: No Abnormal speech present Gait exam (Neuro): Normal gait present Extrem: Other: reporting right hip pain, no erythema, bruising, decreased hip flexion, limited by pain General: Yes normal to inspection and Yes no pedal edema Psych: Speech and movement: Clear speech present Affect: Sad affect present Attitude: cooperative and Avoids eye contact (attititude/behavior) Thought process: Other thought process findings present (Disorganized) Thought content: Suicidality present (Current thoughts of self-harm with plan ) and Hallucination(s) present auditory Objective Data Labs CBC & Chem 7: 01/16/22 14:29 01/21/22 08:31 Labs: Laboratory Results - last 24 hr 01/18/22 01/18/22 01/21/22 05:49 05:49 10:58 POC Glucose 173 H IgG Total 794 IgA Total 245 IgM 83 DAV Interpretation Proteinase 3 (PR3) Ab <1.0 Myeloperoxidase Ab <1.0 Glomerular Base Memb Ab <1.0 01/21/22 01/21/22 01/21/22 15:38 17:27 19:44 POC Glucose 187 H 186 H 191 H IgG Total IgA Total IgM DAV Interpretation Proteinase 3 (PR3) Ab Myeloperoxidase Ab Glomerular Base Memb Ab 01/22/22 07:46 POC Glucose 170 H IgG Total IgA Total IgM DAV Interpretation Proteinase 3 (PR3) Ab Myeloperoxidase Ab Glomerular Base Memb Ab Procedures Date of Service Date of Service: 01/22/22 Assessment & Plan Assessment and plan (1) LIVE (acute kidney injury): Status: Acute Plan 61-year-old male with a past medical history of HTN, HLD, and diabetes who presents to the ED today via EMS due to a Section 12 placed by N for SI/auditory hallucinations admitted to medicine due to elevated Creat/BUN. 1. CKD 3: Scr 2.0-2.5 range and w/u most c/w DN given UPCR 2.5 and sero w/u thus far unrevealing; ideally would consider a kidney Bx but willhold off on Bx and reassess as oupt 2. HTN: poorly controled; goal < 130/80 CKD prog protection: add RASi ( LIZET or ARB) ; SGLT2i; avoid NSAID, BS/BP control REC: incr lorsartan 100 qd 01/23 if BP remains high and SCr amn K ok; look to add SGLT2i as outp ; track BP/BS; chek PTH; oupt f/u re CKD management and possible kidney Bx Renal insufficiency Time Spent With Patient Time: Total time spent is greater than 50% in coordination of care (as documented) at patient's floor/unit and/or counseling patient: Progress Note: Quality Stroke Does the patient have a stroke diagnosis?: No
--- NOTE | 2022-01-22 10:23 | P.PNIM_ITS ---
Subjective Subjective Date of Service: 01/22/22 Interval History: Follow up Elevated BP and creatinine on section 12 Still very depressed Review of Systems Review of Systems: Yes all other systems are reviewed and are negative Constitutional Constitutional: Denies chills and Denies fever(s) Cardiovascular Cardiovascular: Denies chest pain and Denies palpitations Gastrointestinal Gastrointestinal: Denies abdominal pain, Denies nausea and Denies vomiting Endocrine Endocrine: Denies palpitations Physical Exam Vital Signs: Vital Signs: Last Vital Signs Temp 97.8 F 01/22/22 07:47 Pulse 82 01/22/22 07:47 Resp 20 01/22/22 07:47 BP 168/77 H 01/22/22 07:47 Pulse Ox 97 01/22/22 07:47 O2 Del Method 01/22/22 07:47 BMI result Body Mass Index 34.2 Appearing in no acute distress lung sounds are clear to auscultation heart regular rate rhythm, clear S1, S2 positive bowel sounds, abdomen is soft, nontender neuro patient is sleepy Objective Data Active Medications Acetaminophen (Acetaminophen 325 Mg Tablet) 650 mg PO Q6H PRN PRN Reason: Pain, Mild (Pain Scale 1-3) Last Admin: 01/19/22 08:31 Dose: 650 mg Documented By: DANYELLE Amlodipine Besylate (Amlodipine Besylate 10 Mg Tablet) 10 mg PO DAILY [facility]; Protocol Last Admin: 01/22/22 08:46 Dose: 10 mg Documented By: MARIALUISA Atorvastatin Calcium (Atorvastatin Calcium 20 Mg Tablet) 20 mg PO DAILY [facility] Last Admin: 01/22/22 08:46 Dose: 20 mg Documented By: MARIALUISA Dextrose (Dextrose 50 % 25 Gm/50 Ml Syringe) 25 gm IVPUSH Q15M PRN; Protocol PRN Reason: per Hypoglycemia Standing Ord. Docusate Sodium (Docusate Sodium 100 Mg Capsule) 100 mg PO DAILY PRN PRN Reason: Constipation Last Admin: 01/22/22 06:09 Dose: 100 mg Documented By: RACHEL Gabapentin (Gabapentin 300 Mg Capsule) 300 mg PO BEDTIME PRN PRN Reason: neuropathic pain Last Admin: 01/20/22 20:08 Dose: 300 mg Documented By: CADENCE Glucose (Glucose Gel 15 Gm Gel..Gram.) 15 gm PO Q15M PRN; Protocol PRN Reason: per Hypoglycemia Standing Ord. Heparin Sodium (Porcine) (Heparin Sodium,Porcine 5,000 Unit/Ml Vial) 5,000 unit SUBCUT Q12H [facility] Last Admin: 01/21/22 22:07 Dose: 5,000 unit Documented By: RACHEL Hydralazine HCl (Hydralazine Hcl 10 Mg Tablet) 20 mg PO TID [facility]; Protocol Last Admin: 01/22/22 08:53 Dose: 20 mg Documented By: MARIALUISA Insulin Human Lispro (Insulin Lispro 100 Unit/Ml 3 Ml Vial) [facility]; Protocol Last Admin: 01/22/22 08:46 Dose: 2 unit Documented By: MARIALUISA Insulin Human Lispro (Insulin Lispro 100 Unit/Ml 3 Ml Vial) 5 [facility] Last Admin: 01/22/22 08:47 Dose: Not Given Documented By: MARIALUISA Non-Admin Reason: PT REFUSED TO EAT Losartan Potassium (Losartan Potassium 50 Mg Tablet) 100 mg PO DAILY [facility]; Protocol Losartan Potassium (Losartan Potassium 50 Mg Tablet) 50 mg PO ONCE ONE; Protocol Stop: 01/22/22 10:23 Ondansetron HCl (Ondansetron Hcl 4 Mg/2 Ml Vial) 4 mg IVPUSH Q8H PRN PRN Reason: Nausea and Vomiting Oxycodone HCl (Oxycodone Hcl Immed Release 5 Mg Tablet) 5 mg PO Q6H PRN PRN Reason: Pain, Moderate (Pain Scale 4-6 Last Admin: 01/18/22 17:33 Dose: 5 mg Documented By: COTEMA Sodium Chloride (0.9 % Sodium Chloride Flush 3 Ml Syringe) 3 ml IVFLUSH QSHIFT [facility] Last Admin: 01/22/22 08:46 Dose: 3 ml Documented By: MARIALUISA Trazodone HCl (Trazodone Hcl 100 Mg Tablet) 100 mg PO BEDTIME [facility] Last Admin: 01/21/22 22:04 Dose: 100 mg Documented By: RACHEL Labs CBC & Chem 7: 01/16/22 14:29 01/21/22 08:31 Labs: Laboratory Results - last 24 hr 01/18/22 01/18/22 01/21/22 05:49 05:49 10:58 POC Glucose 173 H IgG Total 794 IgA Total 245 IgM 83 DAV Interpretation Proteinase 3 (PR3) Ab <1.0 Myeloperoxidase Ab <1.0 Glomerular Base Memb Ab <1.0 01/21/22 01/21/22 01/21/22 15:38 17:27 19:44 POC Glucose 187 H 186 H 191 H IgG Total IgA Total IgM DAV Interpretation Proteinase 3 (PR3) Ab Myeloperoxidase Ab Glomerular Base Memb Ab 01/22/22 07:46 POC Glucose 170 H IgG Total IgA Total IgM DAV Interpretation Proteinase 3 (PR3) Ab Myeloperoxidase Ab Glomerular Base Memb Ab Assessment and Plan (1) LIVE (acute kidney injury): Status: Acute Plan 61-year-old male with a past medical history of HTN, HLD, and diabetes who presents to the ED today via EMS due to a Section 12 placed by N for SI/auditory hallucinations admitted to medicine due to elevated Creat/BUN. Renal insufficiency probable CKD seen by nephrology renal us neg s/p NS@100 Follow BP closely Renal biopsy o/p Nephrology following Right hip pain Neg xray for fracture OOB to chair SI On section 12 Will need crisis on discharge for bed search, psych consult pending Continue sitter Uncontrolled type 2 diabetes HbA1c 10.9 ADA diet, POCs, SSI add mealtime insulin Hypertension BP elevated on arrival Lisinopril held d/t LIVE/CKD Continue Norvasc Hydralazine added TID po add losartan as per nephrology HLD Continue statin Diabetic neuropathy Continue gabapentin DVT prophylaxis- heparin Full code Attending Dr. Shaw DISPO Plan for tx to inpatient psych once bed available Patient requires ongoing inpatient hospitalization for evaluation of his elevated creatinine. will need BHN eval and possible likely inpatient psych Quality Stroke Does the patient have a stroke diagnosis?: No VTE Prior VTE?: No VTE Risk Level:: Medical - moderate - high VTE Device Contraindication: Treatment Not Indicated VTE Drug Contraindication: N/A - Med Ordered
[2022-01-22] MEDS: Heparin Sodium,Porcine 5,000 UNIT/ML VIAL 5000 UNIT SUBCUT ×2 (11:38→21:47)
[2022-01-22 11:40] LABS: Glucose, Whole Blood 214 mg/dL (60-115)
[2022-01-22 11:41] LABS: Calcium (PTHI) 8.5 mg/dL (8.6-10.3); PTHI 107 pg/mL (16-77)
[2022-01-22] MEDS: oxyCODONE HCl Immed Release 5 MG TABLET PO (15:01)
[2022-01-22 15:55] LABS: Glucose, Whole Blood 172 mg/dL (60-115)
[2022-01-22 19:11] LABS: Complement C3 118 mg/dL (82-185)
--- NOTE | 2022-01-22 19:14 | P.EN_ITS ---
Event Note Date of Service: 01/22/22 Event Note: Doc to doc sign out was given in regards to this pt acceptance to [facility]. Spoke to Dr. Mcnally. Recommended continuing Nephro consult and management of DM.
--- NOTE | 2022-01-22 19:14 | PM.EVENT ---
Event Note Date of Service: 01/22/22 Event Note: Doc to doc sign out was given in regards to this pt acceptance to [facility]. Spoke to Dr. Mcnally. Recommended continuing Nephro consult and management of DM.
[2022-01-22 20:03] LABS: Glucose, Whole Blood 178 mg/dL (60-115)
[2022-01-22] MEDS: traZODone HCL 100 MG TABLET PO (21:38)
[2022-01-22] MEDS: hydrALAZINE HCl 20 MG/ML VIAL 5 MG IVPUSH (21:39)
--- NOTE | 2022-01-22 23:24 | PC.NURSE ---
Patient was reported to have a high blood pressure by behavioral unit staff. Nurse went to check on patient. Patient was asymptomatic and had a manual BP of 180/80. Md was notified. MD ordered IV hydralazine for patient. Patient BP became stabilized
[2022-01-23 03:01] VITALS: BP 107/65; PULSE 82; RESP 16; TEMP 37; O2SAT 96
[2022-01-23] MEDS: Acetaminophen 325 MG TABLET 650 MG PO (05:54)
[2022-01-23 07:03] LABS: Anion Gap 20 (12-20); Blood Urea Nitrogen 28 mg/dL (9-16); Calcium 9.4 mg/dL (8.4-10.2); Carbon Dioxide 20 mmol/L (22-29); Chloride 108 mmol/L (96-108); Creatinine Clr Calc Pharmacy 26.6; Estimated Glomerular Filt Rate 25; Glucose Random 175 mg/dL (60-115); Sodium 144 mmol/L (135-145)
[2022-01-23 07:24] VITALS: BP 115/63; PULSE 76; RESP 16; TEMP 36.5; O2SAT 97
[2022-01-23 07:37] LABS: Glucose, Whole Blood 170 mg/dL (60-115)
[2022-01-23] MEDS: hydrALAZINE HCl 10 MG TABLET 20 MG PO ×2 (07:44→14:22)
[2022-01-23] MEDS: Atorvastatin Calcium 20 MG TABLET PO (07:45)
[2022-01-23] MEDS: Losartan Potassium 50 MG TABLET 100 MG PO (07:45)
[2022-01-23] MEDS: amLODIPine Besylate 10 MG TABLET PO (07:45)
[2022-01-23] MEDS: Insulin Lispro 100 UNIT/ML 3 ML VIAL SUBCUT ×4 (07:46→11:31)
[2022-01-23 08:12] VITALS: BP 115/63; PULSE 76; O2SAT 97
--- NOTE | 2022-01-23 09:14 | P.PNIM_ITS ---
Subjective Subjective Date of Service: 01/23/22 Interval History: Follow up Elevated BP and creatinine on section 12 Still very depressed Review of Systems Review of Systems: Yes all other systems are reviewed and are negative Constitutional Constitutional: Denies chills and Denies fever(s) Cardiovascular Cardiovascular: Denies chest pain and Denies palpitations Gastrointestinal Gastrointestinal: Denies abdominal pain, Denies nausea and Denies vomiting Endocrine Endocrine: Denies palpitations Physical Exam Vital Signs: Vital Signs: Last Vital Signs Temp 97.7 F 01/23/22 07:24 Pulse 76 01/23/22 08:12 Resp 16 01/23/22 07:24 BP 115/63 01/23/22 08:12 Pulse Ox 97 01/23/22 08:12 O2 Del Method 01/23/22 07:24 BMI result Body Mass Index 34.2 Appearing in no acute distress lung sounds are clear to auscultation heart regular rate rhythm, clear S1, S2 positive bowel sounds, abdomen is soft, nontender neuro patient is alert x3, no focal deficits Objective Data Active Medications Acetaminophen (Acetaminophen 325 Mg Tablet) 650 mg PO Q6H PRN PRN Reason: Pain, Mild (Pain Scale 1-3) Last Admin: 01/23/22 05:54 Dose: 650 mg Documented By: MINERVA Amlodipine Besylate (Amlodipine Besylate 10 Mg Tablet) 10 mg PO DAILY [facility]; Protocol Last Admin: 01/23/22 07:45 Dose: 10 mg Documented By: MARIALUISA Atorvastatin Calcium (Atorvastatin Calcium 20 Mg Tablet) 20 mg PO DAILY [facility] Last Admin: 01/23/22 07:45 Dose: 20 mg Documented By: MARIALUISA Dextrose (Dextrose 50 % 25 Gm/50 Ml Syringe) 25 gm IVPUSH Q15M PRN; Protocol PRN Reason: per Hypoglycemia Standing Ord. Docusate Sodium (Docusate Sodium 100 Mg Capsule) 100 mg PO DAILY PRN PRN Reason: Constipation Last Admin: 01/22/22 06:09 Dose: 100 mg Documented By: RACHEL Gabapentin (Gabapentin 300 Mg Capsule) 300 mg PO BEDTIME PRN PRN Reason: neuropathic pain Last Admin: 01/20/22 20:08 Dose: 300 mg Documented By: CADENCE Glucose (Glucose Gel 15 Gm Gel..Gram.) 15 gm PO Q15M PRN; Protocol PRN Reason: per Hypoglycemia Standing Ord. Heparin Sodium (Porcine) (Heparin Sodium,Porcine 5,000 Unit/Ml Vial) 5,000 unit SUBCUT Q12H [facility] Last Admin: 01/22/22 21:47 Dose: 5,000 unit Documented By: MINERVA Hydralazine HCl (Hydralazine Hcl 10 Mg Tablet) 20 mg PO TID [facility]; Protocol Last Admin: 01/23/22 07:44 Dose: 20 mg Documented By: MARIALUISA Insulin Human Lispro (Insulin Lispro 100 Unit/Ml 3 Ml Vial) [facility]; Protocol Last Admin: 01/23/22 07:47 Dose: 2 unit Documented By: MARIALUISA Insulin Human Lispro (Insulin Lispro 100 Unit/Ml 3 Ml Vial) [facility] Last Admin: 01/23/22 07:46 Dose: 5 unit Documented By: MARIALUISA Losartan Potassium (Losartan Potassium 50 Mg Tablet) 100 mg PO DAILY [facility]; Protocol Last Admin: 01/23/22 07:45 Dose: 100 mg Documented By: MARIALUISA Ondansetron HCl (Ondansetron Hcl 4 Mg/2 Ml Vial) 4 mg IVPUSH Q8H PRN PRN Reason: Nausea and Vomiting Oxycodone HCl (Oxycodone Hcl Immed Release 5 Mg Tablet) 5 mg PO Q6H PRN PRN Reason: Pain, Moderate (Pain Scale 4-6 Last Admin: 01/22/22 15:01 Dose: 5 mg Documented By: MARIALUISA Sodium Chloride (0.9 % Sodium Chloride Flush 3 Ml Syringe) 3 ml IVFLUSH QSHIFT [facility] Last Admin: 01/23/22 07:54 Dose: Not Given Documented By: MARIALUISA Non-Admin Reason: Unable to Scan Barcode Trazodone HCl (Trazodone Hcl 100 Mg Tablet) 100 mg PO BEDTIME [facility] Last Admin: 01/22/22 21:38 Dose: 100 mg Documented By: MINERVA Labs CBC & Chem 7: 01/16/22 14:29 01/23/22 05:47 Labs: Laboratory Results - last 24 hr 01/21/22 01/21/22 01/22/22 10:46 10:46 11:26 Anion Gap Estim Creat Clear Calc Estimated GFR POC Glucose 214 H Random Glucose Calcium PTH Intact 107 H Calcium (PTH Intact) 8.5 L Complement C3 118 Complement C4 40 01/22/22 01/22/22 01/23/22 15:43 19:58 05:47 Anion Gap 20 Estim Creat Clear Calc 26.6 Estimated GFR 25 POC Glucose 172 H 178 H Random Glucose 175 H Calcium 9.4 D PTH Intact Calcium (PTH Intact) Complement C3 Complement C4 01/23/22 07:29 Anion Gap Estim Creat Clear Calc Estimated GFR POC Glucose 170 H Random Glucose Calcium PTH Intact Calcium (PTH Intact) Complement C3 Complement C4 Assessment and Plan (1) LIVE (acute kidney injury): Status: Acute Plan 61-year-old male with a past medical history of HTN, HLD, and diabetes who presents to the ED today via EMS due to a Section 12 placed by N for SI/auditory hallucinations admitted to medicine due to elevated Creat/BUN. Renal insufficiency seems to be near baseline , probable CKD seen by nephrology renal us neg s/p NS@100 Follow BP closely Renal biopsy o/p Nephrology following Right hip pain Neg xray for fracture OOB to chair SI On section 12 Will need crisis on discharge for bed search, psych consult pending Continue sitter Uncontrolled type 2 diabetes HbA1c 10.9 ADA diet, POCs, SSI add mealtime insulin Hypertension BP elevated on arrival Lisinopril held d/t LIVE/CKD Continue Norvasc Hydralazine added TID po losartan as per nephrology HLD Continue statin Diabetic neuropathy Continue gabapentin DVT prophylaxis- heparin Full code Attending Dr. Shaw DISPDona Plan for tx to inpatient psych once bed available Patient requires ongoing inpatient hospitalization for evaluation of his elevated creatinine. will need BHN eval and possible likely inpatient psych Quality Stroke Does the patient have a stroke diagnosis?: No VTE Prior VTE?: No VTE Risk Level:: Medical - moderate - high VTE Device Contraindication: Treatment Not Indicated VTE Drug Contraindication: N/A - Med Ordered
--- NOTE | 2022-01-23 10:55 | PM.PNNEP ---
Subjective Subjective Date of Service: 01/23/22 Interval history: Seen and examined,events ntoed Physical Exam Vital Signs: Vital Signs: Last Vital Signs Temp 97.7 F 01/23/22 07:24 Pulse 76 01/23/22 08:12 Resp 16 01/23/22 07:24 BP 115/63 01/23/22 08:12 Pulse Ox 97 01/23/22 08:12 O2 Del Method 01/23/22 07:24 BMI result Body Mass Index 34.2 Const: General: cooperative, comfortable, no acute distress, alert, awake and anxious Nutritional Appearance: overweight Orientation/consciousness: oriented to place Limitations: language barrier (Frisian speaking) HEENT: Head: Yes normal to inspection Ears: hearing grossly normal bilaterally General nose exam: Normal external nose present Face and sinus: Yes normal facial exam Mouth: Normal oral and palatal mucosa present Throat: Yes posterior oropharynx normal Eyes: General: appearance normal, both eyes and all related structures Eyelids: Yes eyelids normal Sclerae: sclerae normal Pupils: Equal, round and reactive pupils present EOM: EOMs intact bilaterally Neck: Neck: Yes normal visual inspection and Yes supple Chest: Chest palpation & inspection: normal inspection of the chest Resp: Effort & Inspection: normal respiratory effort and able to speak in complete sentences Auscultation: clear to auscultation bilaterally and diminished lung sounds Cardio: Rate: regular rate Rhythm: regular rhythm Heart sounds: S1 normal heart sound present and S2 normal heart sound present Peripheral pulses: Peripheral pulses 2+ throughout GI: Inspection: Yes normal to inspection and No distended Palpation (GI): Soft to palpation and nontender Auscultation: normal bowel sounds Back/Spine/Pelvis: Thoracic/Lumbar Spine: thoracic and lumbar spine normal to inspection Skin: General skin exam: no rashes or lesions noted Trauma: abrasion (Distal R forearm from pt scratching himself) Neuro: Other: grossly nonfocal General: oriented to place, moves all extremities and no focal motor deficits Cranial nerves: Yes Equal, round and reactive pupils present Cognition (Neuro): normal cognition Speech: No Abnormal speech present Gait exam (Neuro): Normal gait present Extrem: Other: reporting right hip pain, no erythema, bruising, decreased hip flexion, limited by pain General: Yes normal to inspection and Yes no pedal edema Psych: Speech and movement: Clear speech present Affect: Sad affect present Attitude: cooperative and Avoids eye contact (attititude/behavior) Thought process: Other thought process findings present (Disorganized) Thought content: Suicidality present (Current thoughts of self-harm with plan ) and Hallucination(s) present auditory Objective Data Labs CBC & Chem 7: 01/16/22 14:29 01/23/22 05:47 Labs: Laboratory Results - last 24 hr 01/21/22 01/21/22 01/22/22 10:46 10:46 11:26 Sodium Potassium Chloride Carbon Dioxide Anion Gap BUN Creatinine Estim Creat Clear Calc Estimated GFR POC Glucose 214 H Random Glucose Calcium PTH Intact 107 H Calcium (PTH Intact) 8.5 L Complement C3 118 Complement C4 40 01/22/22 01/22/22 01/23/22 15:43 19:58 05:47 Sodium 144 Potassium 4.0 Chloride 108 Carbon Dioxide 20 L Anion Gap 20 BUN 28 H Creatinine 2.61 H Estim Creat Clear Calc 26.6 Estimated GFR 25 POC Glucose 172 H 178 H Random Glucose 175 H Calcium 9.4 D PTH Intact Calcium (PTH Intact) Complement C3 Complement C4 01/23/22 07:29 Sodium Potassium Chloride Carbon Dioxide Anion Gap BUN Creatinine Estim Creat Clear Calc Estimated GFR POC Glucose 170 H Random Glucose Calcium PTH Intact Calcium (PTH Intact) Complement C3 Complement C4 Procedures Date of Service Date of Service: 01/23/22 Assessment & Plan Assessment and plan (1) LIVE (acute kidney injury): Status: Acute Plan 61-year-old male with a past medical history of HTN, HLD, and diabetes who presents to the ED today via EMS due to a Section 12 placed by N for SI/auditory hallucinations admitted to medicine due to elevated Creat/BUN. 1. CKD 3: Scr slt incr today at 2.6; usu range 2.0-2.5 range and w/u most c/w DN given UPCR 2.5 and sero w/u thus far unrevealing; ideally would consider a kidney Bx but willhold off on Bx and reassess as oupt bumpp in SCr likley d/t better BP control 2. HTN: controled; goal < 130/80 CKD prog protection: add RASi ( LIZET or ARB) ; SGLT2i; avoid NSAID, BS/BP control REC: cont lorsartan 100 qd 01/23; look to add SGLT2i as outp ; track BP/BS; chek PTH; oupt f/u re CKD management and possible kidney Bx Time Spent With Patient Time: Total time spent is greater than 50% in coordination of care (as documented) at patient's floor/unit and/or counseling patient: Progress Note: Quality Stroke Does the patient have a stroke diagnosis?: No
[2022-01-23 11:09] LABS: Glucose, Whole Blood 202 mg/dL (60-115)
--- NOTE | 2022-01-23 11:10 | MHC.CARE ---
Patient will be transferred to inpatient psych for treatment today. Provider updated Auth [id number] Carlos Veloz 6 days review w/ Hali Purdy [phone]
[2022-01-23] MEDS: Heparin Sodium,Porcine 5,000 UNIT/ML VIAL 5000 UNIT SUBCUT (11:30)
--- NOTE | 2022-01-23 14:11 | PM.DS ---
DS: Providers Provider Date of Service: 01/23/22 Date of admission: 01/22/22 13:18 Primary care physician: Unknown Physician Consults: 01/16/22 22:33 Consult to Nephrology Routine Consulting Provider: Angelo Lester Reason for consultation: live vs ckd 01/16/22 22:43 Consult for Sitter Routine Reason for consultation: si 01/19/22 11:43 BHN [Consult to Crisis] Stat Reason for consultation: medically clear Has provider been notified: No 01/21/22 12:22 Consult to Psychiatry Routine Consulting Provider: Psych Covering Reason for consultation: Severe depression, SI, needs inpatient psych, medically clear Has provider been notified: No Attending physician on discharge: Kvng Shaw Discharging clinician: Elda Spears DS: Diagnosis Discharge Diagnosis (1) LIVE (acute kidney injury): Status: Acute DS: Summary Hospital Course Hospital Course: 61-year-old male with a past medical history of HTN, HLD, and diabetes who presents to the ED today via EMS due to a Section 12 placed by [facility] for SI/auditory hallucinations. He reports a voice in his head which he describes as ?a memory that is telling him to ?keep walking to the nearest bridge and throw himself off of it. Labs in the ED significant for creatinine 2.34, BUN 23.? Baseline unavailable.? Patient denies any history of CKD but does report his type 2 diabetes is not well controlled.? Has a history of amputations of the right 3rd toe and left 5th toe and distal metatarsal.? He states his sugars have been ?high? and endorses polyuria.? He denies any fevers, chills, recent illness, nausea, vomiting, abdominal pain, oliguria, dysuria, hematuria.This is a 61-year-old who presents via EMS on Section 12 placed by [facility] for suicidal ideations.? He does have paranoia and auditory hallucinations.? His creatinine was found to be elevated in the ER, unclear baseline.? Will admit for evaluation of elevated creatinine.? Monitor urine output and creatinine with IV fluid resuscitation.? Urine studies pending.? Also found to have elevated blood glucose.? Will need psych consult for suicidal ideation Renal insufficiency seems to be near baseline , probable CKD seen by nephrology renal us neg s/p NS@100 Renal biopsy o/p Right hip pain Neg xray for fracture OOB to chair SI On section 12 tx to psych Uncontrolled type 2 diabetes HbA1c 10.9 ADA diet, POCs, SSI Hypertension BP elevated on arrival Lisinopril held d/t LIVE/CKD Continue Norvasc 10mg daily Hydralazine added TID po losartan 100mg daily HLD Continue statin Diabetic neuropathy Continue gabapentin Time Spent with Patient Time attestation: Total time spent providing and/or coordinating discharge services: Discharge coordination time: Greater than 30 minutes Quality: Safe Use of Opioids Does Pt have an Active Cancer Diagnosis on the Problem List?: No Quality: Stroke Does the patient have a stroke diagnosis?: No Physical Exam Vital Signs: Vital Signs: Last Vital Signs Temp 97.7 F 01/23/22 07:24 Pulse 76 01/23/22 08:12 Resp 16 01/23/22 07:24 BP 115/63 01/23/22 08:12 Pulse Ox 97 01/23/22 08:12 O2 Del Method 01/23/22 07:24 BMI result Body Mass Index 34.2 Appearing in no acute distress head is normocephalic atraumatic eyes pupils are PERRLA sclera is anicteric mouth throat mucous membranes are intact and moist neck is supple no lymphadenopathy, no JVD noted lung sounds are clear to auscultation heart regular rate rhythm, clear S1, S2 positive bowel sounds, abdomen is soft, nontender neuro patient is alert x3, no focal deficits DS: Data Data Completed and Pending Labs on day of discharge: Laboratory Results - last 24 hr 01/21/22 01/22/22 01/22/22 10:46 15:43 19:58 Sodium Potassium Chloride Carbon Dioxide Anion Gap BUN Creatinine Estim Creat Clear Calc Estimated GFR POC Glucose 172 H 178 H Random Glucose Calcium Complement C3 118 Complement C4 40 01/23/22 01/23/22 01/23/22 05:47 07:29 11:06 Sodium 144 Potassium 4.0 Chloride 108 Carbon Dioxide 20 L Anion Gap 20 BUN 28 H Creatinine 2.61 H Estim Creat Clear Calc 26.6 Estimated GFR 25 POC Glucose 170 H 202 H Random Glucose 175 H Calcium 9.4 D Complement C3 Complement C4 Discharge Plan Discharge Anticipated Discharge Date/Time: 01/23/22 13:52 Disposition: Xfer Psychiatric Hosp Referrals: Dhaval Worley MD [Physician] - 1 Week (Renal biopsy) Discharge Medications: New losartan 50 mg Tablet 100 mg PO DAILY 30 Days Qty: 60 2RF Protocol: Hold for SBP< HOLD for SBP < : 90 amlodipine 10 mg Tablet 10 mg PO DAILY 30 Days Qty: 30 2RF Protocol: Hold for SBP< HOLD for SBP < : 90 Continued atorvastatin 20 mg Tablet 20 mg PO DAILY trazodone 100 mg Tablet 100 mg PO BEDTIME gabapentin 300 mg capsule 1 cap PO BEDTIME PRN (Reason: neuropathic pain) Held lisinopril 40 mg Tablet 40 mg PO DAILY Hold Instructions: Resume on 02/05/22. Due to ILVE/CKD med was held. losartan started instead. Please discuss with Nephro prior to continuing Discharge Orders: Discharge Order (Routine); Ordered 01/23/22 Ordered By: Elda Spears Forms: Patient Portal Discharge page Health Concerns: Renal insufficiency Hypertension with elevated blood pressure Suicidal ideation Plan of Treatment: Transfer to inpatient psych Take all medications as prescribed Follow-up with Nephrology for renal biopsy as an outpatient Monitor blood pressure closely Assessment: See discharge summary
[2022-01-23 14:24] VITALS: BP 111/64; PULSE 77
[2022-01-23 14:54] VITALS: BP 120/69; PULSE 78; RESP 18; TEMP 36.1; O2SAT 98
--- NOTE | 2022-01-23 14:58 | MHC.CM.PN ---
PATIENT WILL TRANSFER TO INPATIENT PSYCHIATRIC TREATMENT RN AND FAMILY AWARE OF PLAN.
[2022-01-23 15:59] LABS: Glucose, Whole Blood 202 mg/dL (60-115)
== END 2022-01-23 15:15 | DRG 683 ==
LOC: HO.ED 21:43 → HO.EDOVER 22:49 → HO.S3 01-17 02:10 → HO.EDOVER 01-17 02:30 → HO.S3 01-18 12:01
PROVIDERS: Internal Medicine Nephrology; Nurse Practitioner Family; Physician Assistant Medical; Admitting Provider Physician Assistant; Emergency Provider Emergency Medicine; Visit Provider Nurse Practitioner Acute Care
DX: N17.9 Acute kidney failure, unspecified (principal); R45.851 Suicidal ideations; I12.9 Hypertensive chronic kidney disease with stage 1 through stage 4 chronic kidney disease, or unspecified chronic kidney disease; N18.30 Chronic kidney disease, stage 3 unspecified; E11.22 Type 2 diabetes mellitus with diabetic chronic kidney disease; E78.5 Hyperlipidemia, unspecified; F39 Unspecified mood [affective] disorder; E11.40 Type 2 diabetes mellitus with diabetic neuropathy, unspecified; Z20.822 Contact with and (suspected) exposure to COVID-19; Z87.891 Personal history of nicotine dependence; Z88.0 Allergy status to penicillin; Z79.4 Long term (current) use of insulin; Z79.899 Other long term (current) drug therapy
CPT/HCPCS: 36415; 50200; 73502; 76775; 77012; 80048; 80076; 80143; 80179; 80307; 81001; 82043; 82077; 82550; 82784; 82947; 83036; 83520; 83735; 83970; 84156; 84300; 85025; 85027; 85610; 86021; 86160; 86334; 86704; 86706; 86803; 87340; 87635; 88300; 88305; 88313; 88346; 88348; 88350; 93975; 97162; 99152; 99153; 99285

== ENCOUNTER 2022-01-23 15:15 | Inpatient (IN) | payer MEDICARE, MEDICAID, SELFPAY ==
--- NOTE | ~2022-01-23 | XR_ITS ---
EXAMINATION: XR CHEST CLINICAL INFORMATION: Fever COMPARISON: None TECHNIQUE: Frontal view of the chest was obtained. FINDINGS: Cervical fusion hardware. The lungs are well expanded. There is no focal consolidation, edema, or effusion. No pneumothorax. The cardiomediastinal silhouette is within normal limits. No acute osseous abnormality. XR/XR chest 1V IMPRESSION: Clear lungs.
[2022-01-23 15:48] VITALS: BP 104/59; PULSE 81; RESP 16; TEMP 36.2; O2SAT 97
[2022-01-23 17:12] VITALS: BP 126/69; PULSE 78
--- NOTE | 2022-01-23 18:00 | PC.NURSE ---
Pt was admitted to [facility] at 1355 from Medical unit on CV for treatment of unspecified schizophrenia. Precipitant of admission includes pt report of increased CAH, which led him to leave his house and was walking on the street when his took him to ?[facility].? Pt is INAD, pleasant and cooperative, responds appropriately, did not know where he was, stating, ?I don?t know the area.? Could not name POTUS, stated last POTUS was Obama. Mood is depressed. Affect is restricted, pleasant. Reports AH. Appears internally preoccupied. Thought process is linear.? Denies ideation/plan/intent to harm self or others. Reports good appetite, poor sleep.? Substance issues: Former alcohol and drug use (cocaine/mj) 5 years ago.? Medical issues: Htn, hyperlipidemia, diabetes, right shoulder injury. Physical complaint? Periodic constipation, periodic pain on urination. Safety checks: Q 15. Pt is Guamanian speaking. PT consult indicated for gait eval. Pt currently has walker.
[2022-01-23 18:22] LABS: Glucose, Whole Blood 259 mg/dL (60-115)
[2022-01-23] MEDS: Insulin Lispro 100 UNIT/ML 3 ML VIAL SUBCUT ×2 (21:15→21:16)
[2022-01-23] MEDS: traZODone HCL 100 MG TABLET PO (21:18)
[2022-01-23 21:56] LABS: Glucose, Whole Blood 293 mg/dL (60-115)
[2022-01-24 06:19] VITALS: BMI 34.2
[2022-01-24 09:00] VITALS: BP 119/60; PULSE 77; RESP 16; TEMP 37.4; O2SAT 95
[2022-01-24 09:12] LABS: Glucose, Whole Blood 135 mg/dL (60-115)
[2022-01-24 09:37] LABS: Alanine Aminotransferase 19 U/L (0-40); Albumin Level 3.4 g/dL (3.5-5.0); Alkaline Phosphatase 65 U/L (39-117); Anion Gap 16 (12-20); Aspartate Amino Transferase 24 U/L (5-37); Bilirubin Total 0.5 mg/dL (0.0-1.0); Blood Urea Nitrogen 45 mg/dL (9-16); Calcium 8.5 mg/dL (8.4-10.2); Carbon Dioxide 21 mmol/L (22-29); Chloride 106 mmol/L (96-108); Cholesterol 224 mg/dL; Estimated Glomerular Filt Rate 16; Glucose Fasting 157 mg/dL (60-99); HDL Cholesterol 26 mg/dL; LDL Cholesterol Calculated 149 mg/dl; Potassium 4.2 mmol/L (3.3-5.1); Sodium 139 mmol/L (135-145); Total Protein 5.8 g/dL (6.5-8.0); Triglycerides 248 mg/dL
[2022-01-24 09:41] LABS: Estimated Average Glucose 252 mg/dL; Hemoglobin A1c % 10.4 %
[2022-01-24 09:44] VITALS: BP 126/69; PULSE 78
[2022-01-24 09:59] LABS: Thyroid Stimulating Hormone 1.55 uIU/mL (0.32-4.0)
--- NOTE | 2022-01-24 10:10 | P.HPPS_ITS ---
HPI Date of Service: 01/24/22 Chief Complaint: LVIE Sources of Information: patient interviewed, chart reviewed and crisis/core team assessment reviewed HPI Subjective Notes: [place] Warning and Conditional Voluntary Narrative: Mr. Lock is a 61 year-old male with hx of MDD with psychosis. He was initially assessed in the community by [facility] on 01/16. Per N report, pt has reported not sleeping for 3 days, increased anxiety, and hearing voices telling him to hurt himself. At the time of that assessment, pt apparently reported thinking paran oid thinking that Government was after him. Per care team assessment on 01/19, reported that he woke up day he was assessed by [facility], presenting as anxious, reporting AH. Per care team, pt's reported pt increasingly more forgetful, not finding object he leaves behind at home, which then lead tp pt thinking someone stole them from him. On arrival to ED, pt was found to have elevated Cr at 2.50, BUN 23. He was medically admitted for evaluation of LIVE versus CKD. Pt seen by nephrology who dx pt with CKD stage 3 with a baseline Cr. between 2-2.5. Pt noted to be hypertensive losartan dose was adjusted to 100mg po daily, hydralazine added TID. Recommendation from nephrology to slow or prevent progression of CDK to add LIZET or ARB, controlled DM consider adding SGLT2, manage HTN. On psych unit, Repeat labs this morning- show Cr 3.84, BUN 45\. Pt febrile (100 temp), CBC with diff shows normocytic anemia, but leukocytosis. Pt observed to be sweating, reports feeling tired and fatigued. Pt reports hearing voices on and off, not today. He denies any plan or intent to harm himself but does report that voices at time tell him to harm himself. Pt seen by hospitalist and given LIVE on CKD, will be transfered to medical. Past Psychiatric History: Inpt: one prior 4 years ago OP: [facility] Past trial: risperidone Medical Evaluation Reviewed: Yes [facility] Medical History HLD (hyperlipidemia) HTN (hypertension) Type 2 diabetes Surgical History Status post amputation of toe Diagnostics Vital Signs (24Hr): Vital Signs - 24 hr 01/23/22 15:48 01/23/22 17:12 01/24/22 09:44 Temperature 97.2 F Pulse Rate 81 78 78 Respiratory Rate 16 Blood Pressure 104/59 L 126/69 126/69 Pulse Oximetry 97 Oxygen Delivery Method Room Air BMI result Body Mass Index 34.2 Labs Results: 01/24/22 09:07 01/24/22 09:07 Labs: Laboratory Results - last 48 hr 01/23/22 01/23/22 01/24/22 18:18 20:54 08:58 Sodium Potassium Chloride Carbon Dioxide Anion Gap BUN Creatinine Estim Creat Clear Calc Estimated GFR POC Glucose 259 H 293 H 135 H Fasting Glucose Estimat Average Glucose Hemoglobin A1c % Calcium Total Bilirubin AST ALT Alkaline Phosphatase Total Protein Albumin Triglycerides Cholesterol LDL Cholesterol, Calc HDL Cholesterol TSH 01/24/22 01/24/22 09:07 09:07 Sodium 139 Potassium 4.2 Chloride 106 Carbon Dioxide 21 L Anion Gap 16 BUN 45 H D Creatinine 3.84 H Estim Creat Clear Calc 18.0 Estimated GFR 16 POC Glucose Fasting Glucose 157 H Estimat Average Glucose 252 Hemoglobin A1c % 10.4 Calcium 8.5 D Total Bilirubin 0.5 AST 24 ALT 19 Alkaline Phosphatase 65 D Total Protein 5.8 L D Albumin 3.4 L Triglycerides 248 Cholesterol 224 LDL Cholesterol, Calc 149 HDL Cholesterol 26 TSH 1.55 Meds/Allergies Meds Home Medications Medication Instructions Recorded Confirmed Type atorvastatin 20 mg tablet 20 mg PO DAILY 01/16/22 01/16/22 History gabapentin 300 mg capsule 1 cap PO BEDTIME PRN neuropathic 01/16/22 01/24/22 History pain lisinopril 40 mg tablet 40 mg PO DAILY 01/16/22 01/24/22 History trazodone 100 mg tablet 100 mg PO BEDTIME 01/16/22 01/24/22 History clopidogrel 75 mg tablet 1 tab PO DAILY 01/24/22 01/24/22 History insulin glargine 100 unit/mL (3 36 unit subcut 01/24/22 History mL) subcutaneous pen (Basaglar KwikPen U-100 Insulin) risperidone 0.5 mg disintegrating 0.5 mg PO BID 01/24/22 01/24/22 History tablet Allergies Allergies Allergy/AdvReac Type Severity Reaction Status Date / Time Penicillins Allergy Unknown Verified 01/16/22 14:14 Mental Status Exam Mental Status Exam Narrative: Appearance: in bed, sweating and visibly not well, no energy, covered head with blanket, no acute distressed Behavior:limited by physical malaise psychomotor:retardation Speech:mumbles at times, minimally spontaneous, soft tone Thought process:linear Thought content:feeling sick, no overt delusions or psychosis Mood: tired, not well Affect: congruent SI:none HI:none VH/AH:intermittent Delusions:no overt Insight/judgment:poor x 2. Memory/cog: alert, Assessment & Plan Assessment & Plan (1) Schizophrenia: Status: Acute Code(s): F20.9 - Schizophrenia, unspecified Plan Mr. Lock is a 61 year-old male with hx of MDD with psychosis versus schizophrenia, seen in community by N due to reports of increase anxious mood, CAH. Pt admitted medically for evaluation of CKD versus LIVE. Seems he has CDK stage 3 with baseline Cr of 2-2.5. Transfered to psych for further stabilization of CAH, which he reports are on and off and denies any intent or plan to harm himself. His Cr. this morning is 3.84 with BUN 45- febrile this AM (100), but CBC with diff without leukocytosis. will be trasferred to medicine for tx of LIVE superimposed on CKD stage 3. PLAN- transfer to medicine 1. may try to restart risperidone 0.5mg po bid when pt not overly sedated. Patient educated on: diagnosis Reason for continued inpatient stay Substantial Risk for: inability to function
[2022-01-24 10:22] LABS: MANUAL DIFF FLAG NO
[2022-01-24 10:26] LABS: Basophils Percent Auto 0.5 % (0-2); Eosinophils Absolute Auto 0.2 X10*3/uL (0.0-0.4); Eosinophils Percent Auto 2.1 % (0-4); Hematocrit 32.1 % (42.0-52.0); Hemoglobin 10.6 g/dl (14.0-18.0); Imm Gran Abs Auto 0.03 X10*3/uL (0.00-0.03); Imm Gran Pct Auto 0.4 % (0.0-0.4); Lymphocytes Absolute Auto 1.9 X10*3/uL (1.2-4.9); Lymphocytes Percent Auto 25.8 % (20-40); Mean Corpuscular Hemoglobin 29.6 pg (27.0-33.0); Mean Corpuscular Volume 89.7 fL (80.0-98.0); Mean Platelet Volume 10.5 fL (9.4-12.4); Monocytes Absolute Auto 0.7 X10*3/uL (0.1-1.2); Monocytes Percent Auto 9.8 % (2-11); Neutrophils Absolute Auto 4.6 x10*3/uL (2.0-8.3); Neutrophils Percent Auto 61.4 % (45-73); Platelet Count 266 X10*3/uL (160-400); Red Blood Count 3.58 X10*6/uL (4.60-5.80); Red Cell Distribution Width 12.6 % (11.0-16.0); White Blood Count 7.5 X10*3/uL (4.8-10.8)
--- NOTE | 2022-01-24 10:31 | PC.NURSE ---
This morning Zbigniew is barely rousable. He allowed poc bs - 135 and vital signs but declined to answer assessment questions. Temp is 100.4 orally. He is declining to eat therefore lispro held. He declined am po medications. Hailey Aleman MAG[employer]IC PROSPECTOR informed.
--- NOTE | 2022-01-24 10:49 | PC.NURSE ---
Patient is barely rousable and unable to consent to flu vaccine at this time.
--- NOTE | 2022-01-24 12:10 | HO.PM.IMCN ---
History of Present Illness Data of Consult Service Date: 01/24/22 Requesting physician: Hailey Aleman Primary Care Provider: Unknown Physician HPI Reason for consult: LIVE 61-year-old male with hypertension, hyperlipidemia, insulin-dependent type 2 diabetes, s/p amputation toes b/l feet currently admitted to Psychiatry with medical consult placed due to increased creatinine and BUN. He was recently discharged from the medical service after being admitted on a Section 12 placed by [facility] for SI/auditory hallucinations where he was found to have elevated creatinine of 2.34, BUN 23, baseline was unavailable at that time. Renal function was followed during admission and baseline creatinine found to be around 2.6. Lisinopril was held during the admission and losartan was prescribed in its place and he was recommended for renal biopsy outpatient. he was transfered to psychiatry yesterday and was noted to be alert and oriented upon arrival participating in PT. However, that night became obtunded stating only wanted to do was sleep. He has had no p.o. intake since last night and was noted to be febrile at 100.4 this morning and patient remained attended and somnolent but arousable. Blood pressure 119/60, heart rate 77, oximetry 95%. White blood count 7.5. Slight drop in HGB/HCT 10.6/32.1 (baseline 12.9/39.0% on 01/16). Creatinine elevated to 3.84, BUN 45. Electrolyte levels normal. Fasting glucose this morning 157. Hemoglobin A1c 10.4%. TSH 1.5. Pt unable to procide much history but does state my neck hurts, I got hit though there were no injuries or falls. He does deny any cough, sore throat, sob, nausea/vomiting, diarrhea, dysuria, hemturia, or chest pain. Did receive initial dose losartan yesterday as well as 100mg trazodone (not new), and insulin lispro. Review of Systems Review of Systems: General: +faitgue. No fevers, malaise, unintentional weight loss HEENT: No blurred vision, diplopia. No sore throat, nasal congestion, rhinorrhea, sinus pain, ear pain Neck: +neck pain Cardiovascular: No chest pain, palpitations, or leg edema Respiratory: No shortness of breath, wheezing, cough GI: No abdominal pain, nausea, vomiting, diarrhea, constipation, melena, hematochezia : No dysuria, hematuria, increased urinary frequency, decreased urinary output Neuro: No headaches, weakness, paresthesias Skin: No rashes or lesions [facility] Medical History HLD (hyperlipidemia) HTN (hypertension) Type 2 diabetes Family History Mother No pertinent family history Father No pertinent family history Surgical History Status post amputation of toe Social History Household Members: Spouse Housing: House Do you presently have visiting nurse or other home services: No Alcohol intake: former Year quit: 2017 Patient Tobacco Use Status: Former Tobacco user Second Hand Smoke Exposure: No Substance Use Type: Crack/Cocaine Advance Directives: No Advance Directives Information Provided: No Advance Directives on File: No service: No Meds Allergies Allergy/AdvReac Type Severity Reaction Status Date / Time Penicillins Allergy Unknown Verified 01/16/22 14:14 Active Medications: Current Medications Acetaminophen (Acetaminophen 325 Mg Tablet) 650 mg PO Q6H PRN PRN Reason: Headache/Pain Mild Scale (1-3) Al Hydroxide/Mg Hydroxide (Magnesium Hydrox/Alum Hydrox 30 Ml Oral.Susp) 30 ml PO Q6H PRN PRN Reason: Heartburn/Nausea Amlodipine Besylate (Amlodipine Besylate 10 Mg Tablet) 10 mg PO DAILY [facility]; Protocol Last Admin: 01/24/22 10:44 Dose: Not Given Atorvastatin Calcium (Atorvastatin Calcium 20 Mg Tablet) 20 mg PO DAILY [facility] Last Admin: 01/24/22 10:44 Dose: Not Given Docusate Sodium (Docusate Sodium 100 Mg Capsule) 100 mg PO DAILY PRN PRN Reason: Constipation Hydroxyzine HCl (Hydroxyzine Hcl 25 Mg Tablet) 25 mg PO Q6H PRN PRN Reason: Anxiety Sodium Chloride (Ns) 1,000 mls @ 125 mls/hr IVCONT .Q8H [facility] Insulin Human Lispro (Insulin Lispro 100 Unit/Ml 3 Ml Vial) 5 unit SUBCUT QIDACHS [facility] Last Admin: 01/24/22 10:36 Dose: Not Given Insulin Human Lispro (Insulin Lispro 100 Unit/Ml 3 Ml Vial) 0 unit SUBCUT QIDACHS [facility]; Protocol Last Admin: 01/24/22 10:44 Dose: Not Given Magnesium Hydroxide (Milk Of Magnesia 30 Ml Oral.Susp) 30 ml PO DAILY PRN PRN Reason: Constipation Trazodone HCl (Trazodone Hcl 100 Mg Tablet) 100 mg PO BEDTIME [facility] Last Admin: 01/23/22 21:18 Dose: 100 mg Home Medications Medication Instructions Recorded Confirmed Last Taken Type atorvastatin 20 mg tablet 20 mg PO DAILY 01/16/22 01/16/22 Unknown History gabapentin 300 mg capsule 1 cap PO BEDTIME PRN neuropathic 01/16/22 01/24/22 Unknown History pain lisinopril 40 mg tablet 40 mg PO DAILY 01/16/22 01/24/22 Unknown History trazodone 100 mg tablet 100 mg PO BEDTIME 01/16/22 01/24/22 Unknown History clopidogrel 75 mg tablet 1 tab PO DAILY 01/24/22 01/24/22 Unknown History insulin glargine 100 unit/mL (3 36 unit subcut 01/24/22 Unknown History mL) subcutaneous pen (Basaglar KwikPen U-100 Insulin) risperidone 0.5 mg disintegrating 0.5 mg PO BID 01/24/22 01/24/22 Unknown History tablet Physical Exam Vital Signs and Narrative: Vital Signs: Last Vital Signs Temp 99.4 F 01/24/22 09:00 Pulse 78 01/24/22 09:44 Resp 16 01/24/22 09:00 BP 126/69 01/24/22 09:44 Pulse Ox 95 01/24/22 09:00 O2 Del Method 01/24/22 09:00 BMI result Body Mass Index 34.2 Constitutional - Obtunded and somnolant but arousable able to answer simple questions with single words or short phrases, mostly stating I'm tired Eyes - PERRLA, EOMI Neck: Supple, no adenopathy, nontender to palpation Cardiovascular - S1S2, RRR, No edema Respiratory - Normal lung expansion, Normal respiratory effort, No respiratory distress, CTA bilaterally Gastrointestinal - NT / ND; +BS; No rebound or guarding Extremities - no calf tenderness bilaterally, no swelling Musculoskeletal - Normal inspection, normal ROM Skin - Warm/diaphoretic Neurological - Somnolant & oriented to self and place, PERRLA, unable to assess CN III-, CN IV-XII in tcat, 3/5 strength ble and bue Results Labs CBC and Chem 7: 01/24/22 12:44 01/24/22 09:07 Labs: Laboratory Results - last 24 hr 01/23/22 01/23/22 01/24/22 18:18 20:54 08:58 MCV MCH MCHC RDW Plt Count MPV Immature Gran % (Auto) Neut % (Auto) Lymph % (Auto) [place] % (Auto) Eos % (Auto) Baso % (Auto) Lymph # (Auto) [place] # (Auto) Eos # (Auto) Baso # (Auto) Abs Immat Gran (auto) Absolute Neuts (auto) Absolute Nucleated RBC Nucleated RBC % (auto) Anion Gap Estim Creat Clear Calc Estimated GFR POC Glucose 259 H 293 H 135 H Fasting Glucose Estimat Average Glucose Hemoglobin A1c % Calcium Total Bilirubin AST ALT Alkaline Phosphatase Total Protein Albumin Triglycerides Cholesterol LDL Cholesterol, Calc HDL Cholesterol TSH 01/24/22 01/24/22 01/24/22 09:07 09:07 09:07 MCV 89.7 MCH 29.6 MCHC 33.0 RDW 12.6 Plt Count 266 MPV 10.5 Immature Gran % (Auto) 0.4 Neut % (Auto) 61.4 Lymph % (Auto) 25.8 [place] % (Auto) 9.8 Eos % (Auto) 2.1 Baso % (Auto) 0.5 Lymph # (Auto) 1.9 [place] # (Auto) 0.7 Eos # (Auto) 0.2 Baso # (Auto) 0.0 Abs Immat Gran (auto) 0.03 Absolute Neuts (auto) 4.6 Absolute Nucleated RBC 0.000 Nucleated RBC % (auto) 0.0 Anion Gap 16 Estim Creat Clear Calc 18.0 Estimated GFR 16 POC Glucose Fasting Glucose 157 H Estimat Average Glucose 252 Hemoglobin A1c % 10.4 Calcium 8.5 D Total Bilirubin 0.5 AST 24 ALT 19 Alkaline Phosphatase 65 D Total Protein 5.8 L D Albumin 3.4 L Triglycerides 248 Cholesterol 224 LDL Cholesterol, Calc 149 HDL Cholesterol 26 TSH 1.55 Assessment and Plan (1) LIVE (acute kidney injury): Status: Acute (2) Metabolic encephalopathy: Status: Acute (3) Acute psychosis: Status: Acute Plan 61-year-old male with hypertension, hyperlipidemia, insulin-dependent type 2 diabetes, s/p amputation toes b/l feet currently admitted to Psychiatry with medical consult placed due to elevated creatinine and BUN. Given obtunded appearance, diaphoresis, with fever this morning noted by nursing staff of 100.4, with LIVE, patient will be tranferred to the medical floors for admission and further workup. #LIVE- likely prerenal with unclear cause -Creat 3.42, BUN 45. Baseline CKD stage 3 -Pt dry, diaphoretic, and obtunded on exam with fever this morning of 100.4. There are no other markers of sepsis/severe sepsis -NS @125/hr -Ur electrolytes and creat pending -Pt did have initial dose losartan yesterday -Nephrology consult placed -Follow BMP #Encephalopathy- likely metabolic from LIVE vs infection -COntinue fluids as above -COVID-19, RSV, influenza a test pending -CXR pending -lactic acid pending -urinalysis pending -No meningeal signs -Recommend rectal temp -NPO for now -Repeat CBC #Chronic normocytic anemia -Stable H/H #Psychosis -Psych recommending risperidone at some point once pt more alert -1:1 sitter not advised. No active SI or plan #Insulin-dependent type 2 diabetes- uncontrolled iwth A1c 10.4 -POC glucose -diabetic diet # hypertension-controlled -hold BP meds for now -hold losartan due to LIVE # HLD -continue atorvastatin DVT prophylaxis-heparin Full code Patient requires inpatient stay of at least 2 midnights due to LIVE and metabolic encephalopathy requiring IV fluids and further investigation because of renal failure and encephalopathy with Aks per consultation appreciated.
[2022-01-24 12:13] LABS: Glucose, Whole Blood 142 mg/dL (60-115)
[2022-01-24] MEDS: 0.9 % Sodium Chloride 1,000 ML 125 ML IVCONT (12:39)
[2022-01-24 12:50] LABS: MANUAL DIFF FLAG NO
[2022-01-24 12:53] LABS: Basophils Absolute Auto 0.1 X10*3/uL (0.0-0.2); Basophils Percent Auto 0.6 % (0-2); Eosinophils Absolute Auto 0.1 X10*3/uL (0.0-0.4); Eosinophils Percent Auto 1.8 % (0-4); Hematocrit 34.7 % (42.0-52.0); Hemoglobin 11.5 g/dl (14.0-18.0); Imm Gran Abs Auto 0.02 X10*3/uL (0.00-0.03); Imm Gran Pct Auto 0.3 % (0.0-0.4); Lymphocytes Absolute Auto 2.1 X10*3/uL (1.2-4.9); Lymphocytes Percent Auto 27.2 % (20-40); Mean Corpuscular HGB Conc 33.1 g/dl (31.0-36.0); Mean Corpuscular Hemoglobin 29.9 pg (27.0-33.0); Mean Corpuscular Volume 90.4 fL (80.0-98.0); Mean Platelet Volume 9.9 fL (9.4-12.4); Monocytes Absolute Auto 0.7 X10*3/uL (0.1-1.2); Monocytes Percent Auto 8.5 % (2-11); Neutrophils Absolute Auto 4.8 x10*3/uL (2.0-8.3); Neutrophils Percent Auto 61.6 % (45-73); Platelet Count 285 X10*3/uL (160-400); Red Blood Count 3.84 X10*6/uL (4.60-5.80); Red Cell Distribution Width 12.6 % (11.0-16.0); White Blood Count 7.7 X10*3/uL (4.8-10.8)
[2022-01-24 13:03] LABS: Influenza A PCR NEGATIVE (Negative); Influenza B PCR NEGATIVE (Negative); Resp Syncy Virus RNA Qual PCR NEGATIVE (Negative); SARS COV2 PCR INHOUSE NEGATIVE (Negative)
[2022-01-24 13:10] LABS: Lactic Acid 0.7 mmol/L (0.5-2.0)
[2022-01-24 13:11] LABS: Appearance Urine Clear; Color Urine Yellow; Glucose Urine UA 250 mg/dL (Negative); Leukocyte Esterase Urine Negative (Negative); Nitrite Urine Negative (Negative); Specific Gravity - Urine 1.015 (1.005-1.025); UMIC TRIGGER UACC YES; Urine Blood Negative (Negative); Urine Ketones Negative (Negative); Urine Protein 300 (3+) mg/dL (Neg-Trace)
[2022-01-24 13:15] LABS: Bacteria Urine None Seen (None Seen); RBC Urine 0-2 /HPF (0-2); Squamous Epithelial Cell Urine 0-2 /HPF (0-2); WBC Urine 0-5 /HPF (0-5)
--- NOTE | 2022-01-24 13:23 | PM.PSYDC ---
DS: Providers Provider Date of Service: 01/24/22 Date of admission: 01/23/22 15:15 Primary care physician: Unknown Physician Consults: 01/24/22 10:31 Consult to Hospitalist Routine Consulting Provider: Hospitalist Reason For Exam: LIVE- worsening 01/24/22 12:00 Consult to Nephrology Routine Consulting Provider: Dhaval Worley Reason for consultation: LIVE DS: Diagnosis Discharge Diagnosis (1) Schizophrenia: Status: Acute (2) Acute psychosis: Status: Acute (3) LIVE (acute kidney injury): Status: Acute (4) Metabolic encephalopathy: Status: Acute DS: Medications Discharge Medications Home Medications: Home Medications Medication Instructions Recorded Confirmed atorvastatin 20 mg tablet 20 mg PO DAILY 01/16/22 01/16/22 gabapentin 300 mg capsule 1 cap PO BEDTIME PRN neuropathic 01/16/22 01/24/22 pain lisinopril 40 mg tablet 40 mg PO DAILY 01/16/22 01/24/22 trazodone 100 mg tablet 100 mg PO BEDTIME 01/16/22 01/24/22 clopidogrel 75 mg tablet 1 tab PO DAILY 01/24/22 01/24/22 insulin glargine 100 unit/mL (3 36 unit subcut 01/24/22 mL) subcutaneous pen (Basaglar KwikPen U-100 Insulin) risperidone 0.5 mg disintegrating 0.5 mg PO BID 01/24/22 01/24/22 tablet Previous Rx's Medication Instructions Recorded amlodipine 10 mg tablet 10 mg PO DAILY 30 days #30 tabs 01/22/22 losartan 50 mg tablet 100 mg PO DAILY 30 days #60 tabs 01/22/22 insulin lispro 100 unit/mL 5 unit (0.05 mL) subcut QIDACHS 01/23/22 subcutaneous solution (Humalog #10 mL U-100 Insulin) insulin lispro 100 unit/mL See Protocol subcut QIDACHS #10 mL 01/23/22 subcutaneous solution (Humalog U-100 Insulin) Mental Status Exam Mental Status Exam Narrative: Appearance: in bed, sweating and visibly not well, no energy, covered head with blanket, no acute distressed Behavior:limited by physical malaise psychomotor:retardation Speech:mumbles at times, minimally spontaneous, soft tone Thought process:linear Thought content:feeling sick, no overt delusions or psychosis Mood: tired, not well Affect: congruent SI:none HI:none VH/AH:intermittent Delusions:no overt Insight/judgment:poor x 2. Memory/cog: alert, Data Data Completed and Pending Completed studies during hospitalization [Text1]: 01/23/22 01/23/22 01/24/22 18:18 20:54 08:58 WBC RBC Hgb Hct MCV MCH MCHC RDW Plt Count MPV Immature Gran % (Auto) Neut % (Auto) Lymph % (Auto) [place] % (Auto) Eos % (Auto) Baso % (Auto) Lymph # (Auto) [place] # (Auto) Eos # (Auto) Baso # (Auto) Abs Immat Gran (auto) Absolute Neuts (auto) Absolute Nucleated RBC Nucleated RBC % (auto) Sodium Potassium Chloride Carbon Dioxide Anion Gap BUN Creatinine Estim Creat Clear Calc Estimated GFR POC Glucose 259 H 293 H 135 H Fasting Glucose Estimat Average Glucose Hemoglobin A1c % Lactic Acid Calcium Total Bilirubin AST ALT Alkaline Phosphatase Total Protein Albumin Triglycerides Cholesterol LDL Cholesterol, Calc HDL Cholesterol TSH Urine Color Urine Appearance Urine pH Ur Specific [place] Urine Protein Urine Glucose (UA) Urine Ketones Urine Blood Urine Nitrite Ur Leukocyte Esterase Urine RBC Urine WBC Ur Squamous Epith Cells Urine Bacteria Hyaline Casts Ur Random Sodium Ur Random Potassium Urine Creatinine Influenza Type A (PCR) Influenza Type B (PCR) RSV RNA Qual (PCR) SARS-CoV-2 RNA (RT-PCR) 01/24/22 01/24/22 01/24/22 09:07 09:07 09:07 WBC 7.5 RBC 3.58 L Hgb 10.6 L Hct 32.1 L MCV 89.7 MCH 29.6 MCHC 33.0 RDW 12.6 Plt Count 266 MPV 10.5 Immature Gran % (Auto) 0.4 Neut % (Auto) 61.4 Lymph % (Auto) 25.8 [place] % (Auto) 9.8 Eos % (Auto) 2.1 Baso % (Auto) 0.5 Lymph # (Auto) 1.9 [place] # (Auto) 0.7 Eos # (Auto) 0.2 Baso # (Auto) 0.0 Abs Immat Gran (auto) 0.03 Absolute Neuts (auto) 4.6 Absolute Nucleated RBC 0.000 Nucleated RBC % (auto) 0.0 Sodium 139 Potassium 4.2 Chloride 106 Carbon Dioxide 21 L Anion Gap 16 BUN 45 H D Creatinine 3.84 H Estim Creat Clear Calc 18.0 Estimated GFR 16 POC Glucose Fasting Glucose 157 H Estimat Average Glucose 252 Hemoglobin A1c % 10.4 Lactic Acid Calcium 8.5 D Total Bilirubin 0.5 AST 24 ALT 19 Alkaline Phosphatase 65 D Total Protein 5.8 L D Albumin 3.4 L Triglycerides 248 Cholesterol 224 LDL Cholesterol, Calc 149 HDL Cholesterol 26 TSH 1.55 Urine Color Urine Appearance Urine pH Ur Specific [place] Urine Protein Urine Glucose (UA) Urine Ketones Urine Blood Urine Nitrite Ur Leukocyte Esterase Urine RBC Urine WBC Ur Squamous Epith Cells Urine Bacteria Hyaline Casts Ur Random Sodium Ur Random Potassium Urine Creatinine Influenza Type A (PCR) Influenza Type B (PCR) RSV RNA Qual (PCR) SARS-CoV-2 RNA (RT-PCR) 01/24/22 01/24/22 01/24/22 12:05 12:07 12:25 WBC RBC Hgb Hct MCV MCH MCHC RDW Plt Count MPV Immature Gran % (Auto) Neut % (Auto) Lymph % (Auto) [place] % (Auto) Eos % (Auto) Baso % (Auto) Lymph # (Auto) [place] # (Auto) Eos # (Auto) Baso # (Auto) Abs Immat Gran (auto) Absolute Neuts (auto) Absolute Nucleated RBC Nucleated RBC % (auto) Sodium Potassium Chloride Carbon Dioxide Anion Gap BUN Creatinine Estim Creat Clear Calc Estimated GFR POC Glucose 142 H Fasting Glucose Estimat Average Glucose Hemoglobin A1c % Lactic Acid Calcium Total Bilirubin AST ALT Alkaline Phosphatase Total Protein Albumin Triglycerides Cholesterol LDL Cholesterol, Calc HDL Cholesterol TSH Urine Color Urine Appearance Urine pH Ur Specific [place] Urine Protein Urine Glucose (UA) Urine Ketones Urine Blood Urine Nitrite Ur Leukocyte Esterase Urine RBC Urine WBC Ur Squamous Epith Cells Urine Bacteria Hyaline Casts Ur Random Sodium Pending Ur Random Potassium Pending Urine Creatinine Pending Influenza Type A (PCR) NEGATIVE Influenza Type B (PCR) NEGATIVE RSV RNA Qual (PCR) NEGATIVE SARS-CoV-2 RNA (RT-PCR) NEGATIVE 01/24/22 01/24/22 01/24/22 12:25 12:44 12:44 WBC 7.7 RBC 3.84 L Hgb 11.5 L Hct 34.7 L MCV 90.4 MCH 29.9 MCHC 33.1 RDW 12.6 Plt Count 285 MPV 9.9 Immature Gran % (Auto) 0.3 Neut % (Auto) 61.6 Lymph % (Auto) 27.2 [place] % (Auto) 8.5 Eos % (Auto) 1.8 Baso % (Auto) 0.6 Lymph # (Auto) 2.1 [place] # (Auto) 0.7 Eos # (Auto) 0.1 Baso # (Auto) 0.1 Abs Immat Gran (auto) 0.02 Absolute Neuts (auto) 4.8 Absolute Nucleated RBC 0.000 Nucleated RBC % (auto) 0.0 Sodium Potassium Chloride Carbon Dioxide Anion Gap BUN Creatinine Estim Creat Clear Calc Estimated GFR POC Glucose Fasting Glucose Estimat Average Glucose Hemoglobin A1c % Lactic Acid 0.7 Calcium Total Bilirubin AST ALT Alkaline Phosphatase Total Protein Albumin Triglycerides Cholesterol LDL Cholesterol, Calc HDL Cholesterol TSH Urine Color Yellow Urine Appearance Clear Urine pH 5.0 Ur Specific [place] 1.015 Urine Protein 300 (3+) H Urine Glucose (UA) 250 H Urine Ketones Negative Urine Blood Negative Urine Nitrite Negative Ur Leukocyte Esterase Negative Urine RBC 0-2 Urine WBC 0-5 Ur Squamous Epith Cells 0-2 Urine Bacteria None Seen Hyaline Casts 3-5 Ur Random Sodium Ur Random Potassium Urine Creatinine Influenza Type A (PCR) Influenza Type B (PCR) RSV RNA Qual (PCR) SARS-CoV-2 RNA (RT-PCR) 01/24/22 12:44 Blood - Venous Blood Culture - Pending 01/24/22 12:44 Blood - Venous Blood Culture - Pending DS: Summary Hospital Course Hospital Course: Subjective Notes: [place] Warning and Conditional Voluntary Narrative: Mr. Lock is a 61 year-old male with hx of MDD with psychosis. He was initially assessed in the community by [facility] on 01/16. Per N report, pt has reported not sleeping for 3 days, increased anxiety, and hearing voices telling him to hurt himself. At the time of that assessment, pt apparently reported thinking paranoid thinking that Government was after him. Per care team assessment on 01/19, reported that he woke up day he was assessed by N, presenting as anxious, reporting AH. Per care team, pt's reported pt increasingly more forgetful, not finding object he leaves behind at home, which then lead tp pt thinking someone stole them from him. On arrival to ED, pt was found to have elevated Cr at 2.50, BUN 23. He was medically admitted for evaluation of LIVE versus CKD. Pt seen by nephrology who dx pt with CKD stage 3 with a baseline Cr. between 2-2.5. Pt noted to be hypertensive losartan dose was adjusted to 100mg po daily, hydralazine added TID. Recommendation from nephrology to slow or prevent progression of CDK to add LIZET or ARB, controlled DM consider adding SGLT2, manage HTN. HOSPITAL COURSE: On psych unit, Repeat labs this morning- show Cr 3.84, BUN 45\. Pt febrile (100 temp), CBC with diff shows normocytic anemia, but leukocytosis. Pt observed to be sweating, reports feeling tired and fatigued. Pt reports hearing voices on and off, not today. He denies any plan or intent to harm himself but does report that voices at time tell him to harm himself. Pt seen by hospitalist and given LIVE on CKD, will be transfered to medical. Past Psychiatric History: Inpt: one prior 4 years ago OP: [facility] Past trial: risperidone Medical Evaluation Reviewed: Yes Time Spent with Patient Time attestation: Total time spent providing and/or coordinating discharge services: Discharge Plan Discharge Anticipated Discharge Date/Time: 01/24/22 12:33 Disposition: [facility] Referrals: Physician,Unknown J [Primary Care Provider] - 1 Week Discharge Medications: No Action clopidogrel 75 mg tablet 1 tab PO DAILY risperidone 0.5 mg tablet,disintegrating 0.5 mg PO BID insulin glargine [Basaglar KwikPen U-100 Insulin] 100 unit/mL (3 mL) insulin pen 36 unit subcut atorvastatin 20 mg Tablet 20 mg PO DAILY lisinopril 40 mg Tablet 40 mg PO DAILY Hold Instructions: Resume on 02/05/22. Due to LIVE/CKD med was held. losartan started instead. Please discuss with Nephro prior to continuing trazodone 100 mg Tablet 100 mg PO BEDTIME gabapentin 300 mg capsule 1 cap PO BEDTIME PRN (Reason: neuropathic pain) losartan 50 mg Tablet 100 mg PO DAILY 30 Days Qty: 60 2RF Protocol: Hold for SBP< HOLD for SBP < : 90 amlodipine 10 mg Tablet 10 mg PO DAILY 30 Days Qty: 30 2RF Protocol: Hold for SBP< HOLD for SBP < : 90 insulin lispro [Humalog U-100 Insulin] 100 unit/mL Solution 5 unit subcut QIDACHS Qty: 10 0RF insulin lispro [Humalog U-100 Insulin] 100 unit/mL Solution See Protocol subcut QIDACHS Qty: 10 0RF Protocol: Insulin Correction Scale Less than or equal to 110 ---- Give (units): 0 111 to 150 Give (units): 0 151 to 200 Give (units): 2 201 to 250 Give (units): 6 251 to 300 Give (units): 8 301 to 350 Give (units): 10 Greater than 350 Give (units): 12 Call MD if Blood Glucose > : 400 Discharge Orders: Discharge Order (Routine); Ordered 01/24/22 Ordered By: Hailey Aleman Diet: Regular diet Activity on Discharge: As tolerated Forms: Patient Portal Discharge page Care Plan Goals: 1. MAINTAIN MOOD Health Concerns: transfer to medical Plan of Treatment: continue medications as prescribed Assessment: somnolent with malaise, not fully awake but arousable, reports feeling tired. no SI/HI. intermittent AH, can consider restarting risperidone 0.5mg po BID.
[2022-01-24 13:52] LABS: Creatinine Urine 186.11 mg/dL; Potassium Urine Random 31.5 mmol/L
--- NOTE | 2022-01-24 14:04 | PC.NURSE ---
Zbigniew is transferred to [facility] via stretcher for medical evaluation and treatment
== END 2022-01-24 13:32 | disposition short-term general hospital (02) | DRG 885 ==
PROVIDERS: Clinical Nurse Specialist Psychiatric/Mental Health, Adult; Physician Assistant; Student in an Organized Health Care Education/Training Program; Admitting Provider Psychiatry & Neurology Psychiatry; Visit Provider Social Worker
DX: F20.9 Schizophrenia, unspecified (principal); G93.41 Metabolic encephalopathy; R45.851 Suicidal ideations; N17.9 Acute kidney failure, unspecified; E78.5 Hyperlipidemia, unspecified; D64.9 Anemia, unspecified; D63.1 Anemia in chronic kidney disease; E11.22 Type 2 diabetes mellitus with diabetic chronic kidney disease; I12.9 Hypertensive chronic kidney disease with stage 1 through stage 4 chronic kidney disease, or unspecified chronic kidney disease; N18.30 Chronic kidney disease, stage 3 unspecified; Z20.822 Contact with and (suspected) exposure to COVID-19; Z87.891 Personal history of nicotine dependence; Z88.0 Allergy status to penicillin; Z79.4 Long term (current) use of insulin; Z79.02 Long term (current) use of antithrombotics/antiplatelets; Z79.899 Other long term (current) drug therapy
CPT/HCPCS: 0241U; 36415; 71045; 80053; 80061; 81001; 82947; 83036; 83605; 84133; 84300; 84443; 85025; 87040; 97162

== ENCOUNTER 2022-01-24 12:47 | Inpatient (IN) | payer MEDICARE, MEDICAID, SELFPAY ==
--- NOTE | ~2022-01-24 | CT_ITS ---
PROCEDURE: CT GUIDED BIOPSY, KIDNEY CLINICAL INFORMATION: Kidney insufficiency. COMPARISON: Ultrasound of the kidneys 01/25/2022. TECHNIQUE: Procedure and risks and benefits including bleeding, infection and injury to the kidney were discussed with the patient and informed consent was obtained. The patient was positioned in the prone position . Limited axial images through the kidneys was performed. The right flank was prepped and draped in the usual sterile fashion. The skin and soft tissues were anesthetized with 1% lidocaine plain. Using CT guidance and a coaxial system, access to the lower pole of the right kidney was obtained. Two 18-gauge core biopsies were obtained. Hemostasis was achieved using Gelfoam pledgets. Patient received Versed 0.5 mg and Fentanyl 25 mcg intravenously during the procedure. Total sedation time was 25 minutes. Conscious sedation was provided by a registered nurse under my direct supervision with continuous hemodynamic monitoring. This CT examination was performed using dose optimization techniques as appropriate, variously including the following: *Automated exposure control *Adjustment of mA and/or kV according to patient size (this includes techniques or standardized protocols for targeted exams where dose is matched to indication/reason for exam; i.e. extremities or head) *Use of iterative reconstruction technique DLP: 195 mGy-cm FINDINGS: There is a small 2 mm stone in the lower pole of each kidney. The kidneys are otherwise normal. No hematoma post right renal biopsy is seen. CT/CT biopsy renal RT IMPRESSION: CT-guided right renal biopsy.
--- NOTE | ~2022-01-24 | US_ITS ---
EXAMINATION: US RETROPERITONEAL LIMITED (RENAL ONLY) CLINICAL INFORMATION: This is a 61-year-old male with history of acute kidney injury. Possible renal vascular hypertension.. COMPARISON: Comparison is made to a previous study dated 01/17/2022. TECHNIQUE: Bilateral renal ultrasound was performed. Color Doppler was attempted on the renal arteries. Attempts were made to perform renal Doppler to evaluate for renal artery stenosis. The study was severely limited due to overlying bowel gas and poor respiratory holds. FINDINGS: RIGHT KIDNEY: 10.2 x 4.5 x 5.2 cm (SAG x AP x TRV). The kidney is normal in size, contour, and echogenicity. Renal cortical thickness is normal. No calculi or focal parenchymal lesions. No hydronephrosis. RIGHT RENAL DOPPLER EXAM: Proximal renal artery: 136 cm/s. Mid right renal artery 266 cm/s. Distal right renal artery: 124 cm/s. The segmental resistive indices are 0.84 The right renal vein appears patent. The aorta velocity could not be obtained. LEFT KIDNEY: 11.9 x 5.5 x 4.8 cm (SAG x AP x TRV). The kidney is normal in size, contour, and echogenicity. Renal cortical thickness is normal. No calculi or focal parenchymal lesions. No hydronephrosis. There is an anechoic, nonnodular, noncalcified, nonseptated simple cyst on the left measuring 0.8 x 0.7 x 0.9 cm. This appears unchanged. LEFT RENAL DOPPLER EXAM: The proximal renal artery cannot be seen. The mid left renal artery could not be seen. The distal left renal artery measured 105 cm/s. The resistive indices within the segments measure 0.86. US/US renal doppler IMPRESSION: 1. There is an elevated velocity in the mid right renal artery. This may represent a hemodynamically significant stenosis. Further confirmation could be performed with MRA. 2. The study was limited and left renal artery velocities could not be adequately obtained. 3. However, the resistive indices with in both kidneys appear to be elevated. This can be seen with acute kidney injury and underlying hypertension..
--- NOTE | 2022-01-24 12:53 | PM.IMHP ---
History of Present Illness Date of Service: 01/24/22 Attending physician on admission: Robert Acuna Chief Complaint: LIVE 61-year-old male with hypertension, hyperlipidemia, insulin-dependent type 2 diabetes, s/p amputation toes b/l feet currently admitted to Psychiatry with medical consult placed due to increased creatinine and BUN.? He was recently discharged from the medical service after being admitted on a Section 12 placed by [facility] for SI/auditory hallucinations where he was found to have elevated creatinine of 2.34, BUN 23, baseline was unavailable at that time.? Renal function was followed during admission and baseline creatinine found to be around 2.6.? Lisinopril was held during the admission and losartan was prescribed in its place and he was recommended for renal biopsy outpatient. he was transfered to psychiatry yesterday and was noted to be alert and oriented upon arrival participating in PT. However, that night became obtunded stating only wanted to do was sleep.? He has had no p.o. intake since last night and was noted to be febrile at 100.4 this morning and patient remained attended and somnolent but arousable.? Blood pressure 119/60, heart rate 77, oximetry 95%.? White blood count 7.5.? Slight drop in HGB/HCT 10.6/32.1 (baseline 12.9/39.0% on 01/16).? Creatinine elevated to 3.84, BUN 45.? Electrolyte levels normal.? Fasting glucose this morning 157.? Hemoglobin A1c 10.4%.? TSH 1.5. Pt unable to procide much history but does state my neck hurts, I got hit though there were no injuries or falls. He does deny any cough, sore throat, sob, nausea/vomiting, diarrhea, dysuria, hemturia, or chest pain. Did receive initial dose losartan yesterday as well as 100mg trazodone (not new), and insulin lispro. Review of Systems Review of Systems: General: +faitgue. No fevers, malais e, unintentional w eight loss HEENT: No blurred vision, diplopia. No sore throat, nasal con gestion, rhinorrhe a, sinus pain, ear pain Neck: +neck pain Cardiovascula r: No chest pain, palpitations, or l eg edema Respirato ry: No shortness o f breath, wheezing , cough GI: No abd ominal pain, nause a, vomiting, diarr hea, constipation, melena, hematoche gloria : No dysuria , hematuria, incre ased urinary frequ ency, decreased ur inary output Neuro : No headaches, we akness, paresthesi as Skin: No rashes or lesions [facility] Medical History HLD (hyperlipidemia) HTN (hypertension) Type 2 diabetes Family History Mother No pertinent family history Father No pertinent family history Surgical History Status post amputation of toe Social History Household Members: Spouse Housing: House Do you presently have visiting nurse or other home services: No Alcohol intake: former Year quit: 2017 Patient Tobacco Use Status: Former Tobacco user Second Hand Smoke Exposure: No Substance Use Type: Crack/Cocaine Currently Displaying Signs/Symptoms of Drug Intoxication Withdrawal: No Advance Directives: No Advance Directives Information Provided: No Advance Directives on File: No service: No Sexual orientation: Straight/Heterosexual Meds Allergies Allergy/AdvReac Type Severity Reaction Status Date / Time Penicillins Allergy Unknown Verified 01/16/22 14:14 Active Medications: Current Medications Acetaminophen (Acetaminophen Supp 650 Mg Supp.Rect) 650 mg IN Q6H PRN PRN Reason: Fever Heparin Sodium (Porcine) (Heparin Sodium,Porcine 5,000 Unit/Ml Vial) 5,000 unit SUBCUT Q12H STEPHANIE Ondansetron HCl (Ondansetron Hcl 4 Mg/2 Ml Vial) 4 mg IVPUSH Q8H PRN PRN Reason: Nausea and Vomiting Home Medications Medication Instructions Recorded Confirmed Last Taken Type atorvastatin 20 mg tablet 20 mg PO DAILY 01/16/22 01/24/22 Unknown History gabapentin 300 mg capsule 1 cap PO BEDTIME PRN neuropathic 01/16/22 01/24/22 Unknown History pain lisinopril 40 mg tablet 40 mg PO DAILY 01/16/22 01/24/22 Unknown History trazodone 100 mg tablet 100 mg PO BEDTIME 01/16/22 01/24/22 Unknown History clopidogrel 75 mg tablet 1 tab PO DAILY 01/24/22 01/24/22 Unknown History insulin glargine 100 unit/mL (3 36 unit subcut 01/24/22 Unknown History mL) subcutaneous pen (Basaglar KwikPen U-100 Insulin) risperidone 0.5 mg disintegrating 0.5 mg PO BID 01/24/22 01/24/22 Unknown History tablet Physical Exam Vital Signs and Narrative: Vital Signs: Last Vital Signs Temp ? 99.4 F? 01/24/22 09:00 Pulse? 78? 01/24/22 09:44 Resp ? 16? 01/24/22 09:00 BP ? 126/69? 01/24/22 09:44 Pulse Ox ? 95? 01/24/22 09:00 O2 Del Method? 01/24/22 09:00 BMI result Body Mass Index ? 34.2? Constitutional - Obtunded and somnolant but arousable able to answer simple questions with single words or short phrases, mostly stating I'm tired Eyes - PERRLA, EOMI Neck:? Supple, no adenopathy, nontender to palpation Cardiovascular - S1S2, RRR, No edema Respiratory - Normal lung expansion, Normal respiratory effort, No respiratory distress, CTA bilaterally Gastrointestinal - NT / ND; +BS; No rebound or guarding Extremities - no calf tenderness bilaterally, no swelling Musculoskeletal - Normal inspection, normal ROM Skin - Warm/diaphoretic Neurological - Somnolant & oriented to self and place, PERRLA, unable to assess CN III-, CN IV-XII in tcat, 3/5 strength ble and bue Assessment and Plan (1) Metabolic encephalopathy: Status: Acute (2) LIVE (acute kidney injury): Status: Acute Plan 61-year-old male with hypertension, hyperlipidemia, insulin-dependent type 2 diabetes, s/p amputation toes b/l feet currently admitted to Psychiatry with medical consult placed due to elevated creatinine and BUN. Given obtunded appearance, diaphoresis, with fever this morning noted by nursing staff of 100.4, with LIVE, patient will be tranferred to the medical floors for admission and further workup. #LIVE- likely prerenal with unclear cause -Creat 3.42, BUN 45. Baseline CKD stage 3 -Pt dry, diaphoretic, and obtunded on exam with fever this morning of 100.4. There are no other markers of sepsis/severe sepsis -NS @125/hr -Ur electrolytes and creat pending -Pt did have initial dose losartan yesterday -Nephrology consult placed -Follow BMP #Encephalopathy- likely metabolic from LIVE vs infection -COntinue fluids as above -COVID-19, RSV, influenza a test pending -CXR pending -lactic acid pending -urinalysis pending -No meningeal signs -Recommend rectal temp -NPO for now -Repeat CBC #Chronic normocytic anemia -Stable H/H, though slight decrease from baseline -Recheck CBC @3pm to assess for possible bleeding #Psychosis -Psych recommending risperidone at some point once pt more alert -1:1 sitter not advised. No active SI or plan #Insulin-dependent type 2 diabetes- uncontrolled iwth A1c 10.4 -POC glucose -diabetic diet # hypertension-controlled -hold BP meds for now -hold losartan due to LIVE # HLD -continue atorvastatin DVT prophylaxis-heparin Full code Patient requires inpatient stay of at least 2 midnights due to LIVE and metabolic encephalopathy requiring IV fluids and further investigation because of renal failure and encephalopathy with Aks per consultation appreciated. Quality Stroke Does the patient have a stroke diagnosis?: No VTE Prior VTE?: No VTE Risk Level:: Medical - moderate - high VTE Device Contraindication: Treatment Not Indicated VTE Drug Contraindication: N/A - Med Ordered
--- NOTE | 2022-01-24 13:22 | PHA.MEDREC ---
Pharmacy Consult ? Medication Reconciliation Pharmacy has completed the medication reconciliation. pt transferred from spych unit; copied over home meds from other profile
[2022-01-24] MEDS: Heparin Sodium,Porcine 5,000 UNIT/ML VIAL 5000 UNIT SUBCUT (14:39)
[2022-01-24] MEDS: 0.9 % Sodium Chloride 1,000 ML 125 ML IVCONT (14:39)
[2022-01-24 15:26] VITALS: BMI 28.1
[2022-01-24 15:51] VITALS: BP 139/69; PULSE 77; RESP 16; TEMP 36.3; O2SAT 97
[2022-01-24 16:24] LABS: Glucose, Whole Blood 145 mg/dL (60-115)
--- NOTE | 2022-01-24 18:18 | PM.PNNEP ---
Subjective Subjective Date of Service: 01/24/22 Interval history: Seen and examined,events noted Physical Exam Vital Signs: Vital Signs: Last Vital Signs Temp 97.3 F 01/24/22 15:51 Pulse 77 01/24/22 15:51 Resp 16 01/24/22 15:51 BP 139/69 01/24/22 15:51 Pulse Ox 97 01/24/22 15:51 O2 Del Method 01/24/22 15:51 BMI result Body Mass Index 28.1 Objective Data Labs Labs: Laboratory Results - last 24 hr 01/24/22 16:20 POC Glucose 145 H Procedures Date of Service Date of Service: 01/24/22 Assessment & Plan Assessment and plan (1) Metabolic encephalopathy: Status: Acute (2) LIVE (acute kidney injury): Status: Acute Plan 1. LIVE: c/w renal hypoperfsuion with combination of Low BP and ARB; kinsey APOORVA needs to be r/o as well 2. CKD 3b: BSL SCr 2.0-2.5; w/u c/w DN given neg sero w/u; need to r/o APOORVA/IRD and at some point consider a kidney Bx 3.HTN: avoid too low BP 4. Heavy UPCR:c/w DN given sero w/u unrevealing but ideally would need a kidney Bx at some point REC: d/c cozaar; IVF, hold BP to avoid SBP < 130; track UOP/renal func; bladder scan Time Spent With Patient Time: Total time spent is greater than 50% in coordination of care (as documented) at patient's floor/unit and/or counseling patient: Progress Note: Quality Stroke Does the patient have a stroke diagnosis?: No
[2022-01-24 19:43] VITALS: BP 172/81; PULSE 79; RESP 18; TEMP 36.3; O2SAT 94
[2022-01-24 19:50] LABS: Glucose, Whole Blood 135 mg/dL (60-115)
[2022-01-24] MEDS: risperiDONE 0.5 MG TABLET PO (20:47)
[2022-01-24] MEDS: traZODone HCL 100 MG TABLET PO (20:47)
[2022-01-24 23:49] VITALS: BP 146/76; PULSE 71; RESP 18; TEMP 36.5; O2SAT 97
[2022-01-25] MEDS: Heparin Sodium,Porcine 5,000 UNIT/ML VIAL 5000 UNIT SUBCUT ×2 (00:01→15:12)
[2022-01-25] MEDS: 0.9 % Sodium Chloride 1,000 ML 125 ML IVCONT ×3 (00:02→18:43)
[2022-01-25 03:55] VITALS: BP 138/72; PULSE 80; RESP 18; TEMP 36.6; O2SAT 93
[2022-01-25 05:57] LABS: Hemoglobin 9.7 g/dl (14.0-18.0); Mean Corpuscular HGB Conc 31.3 g/dl (31.0-36.0); Mean Corpuscular Hemoglobin 28.8 pg (27.0-33.0); Mean Platelet Volume 10.1 fL (9.4-12.4); Platelet Count 238 X10*3/uL (160-400); Red Blood Count 3.37 X10*6/uL (4.60-5.80); Red Cell Distribution Width 12.7 % (11.0-16.0); White Blood Count 7.9 X10*3/uL (4.8-10.8)
[2022-01-25 06:39] LABS: Anion Gap 14 (12-20); Blood Urea Nitrogen 44 mg/dL (9-16); Calcium 8.3 mg/dL (8.4-10.2); Carbon Dioxide 20 mmol/L (22-29); Chloride 114 mmol/L (96-108); Creatinine Clr Calc Pharmacy 29.8; Estimated Glomerular Filt Rate 23; Glucose Random 122 mg/dL (60-115); Magnesium 3.2 mg/dL (1.6-2.6); Sodium 144 mmol/L (135-145)
[2022-01-25 07:45] VITALS: BP 140/67; PULSE 72; RESP 18; TEMP 36.8; O2SAT 93
[2022-01-25 07:53] LABS: Glucose, Whole Blood 121 mg/dL (60-115)
[2022-01-25] MEDS: amLODIPine Besylate 10 MG TABLET PO (10:04)
[2022-01-25] MEDS: Atorvastatin Calcium 20 MG TABLET PO (10:05)
[2022-01-25] MEDS: risperiDONE 0.5 MG TABLET PO ×2 (10:05→20:55)
--- NOTE | 2022-01-25 11:29 | MHC.CM.PN ---
Addendum entered by Madeleine Valles RN 01/25/22 11:35: HCP AND MOLST ON FILE Original Note: PATIENT IS IN FROM INPATIENT PSYCHIATRIC FLOOR CM FOLLOWING. IMM 01/25 IN CHART
[2022-01-25 11:33] VITALS: BP 137/67; PULSE 80; RESP 18; TEMP 36.9; O2SAT 94
[2022-01-25 11:41] LABS: Glucose, Whole Blood 124 mg/dL (60-115)
--- NOTE | 2022-01-25 14:14 | P.PNIM_ITS ---
Subjective Subjective Date of Service: 01/25/22 Interval History: the patient was seen and evaluated this morning Laying in bed, more alert and interactive Less anxious and restless Creatinine level improving Denies any fever, chills but reports generalized weakness No reported other overnight events. Systemic review: No fever, chills but reporting generalized weakness No chest pain, palpitation No shortness of breath or coughing No abdominal pain, nausea or vomiting No urinary symptoms No reported rash Physical Exam Vital Signs: Vital Signs: Last Vital Signs Temp 98.4 F 01/25/22 11:33 Pulse 80 01/25/22 11:33 Resp 18 01/25/22 11:33 BP 137/67 01/25/22 11:33 Pulse Ox 94 01/25/22 11:33 O2 Del Method 01/25/22 11:33 BMI result Body Mass Index 28.1 Const: Other: Constitutional : Awake, interactive, not in distress, looks weak Neck : Normal inspection, Supple Cardiovascular : RRR, no JVP, no lower extremity edema Respiratory : good bilateral air entry, no crackles, wheezes or rhonchi Gastrointestinal: soft, lax, Normal bowel sounds, Non tender Skin : Warm, Dry Neurological : Alert & oriented to self and place, No focal deficit Objective Data Active Medications Acetaminophen (Acetaminophen Supp 650 Mg Supp.Rect) 650 mg TX Q6H PRN PRN Reason: Fever Acetaminophen (Acetaminophen 325 Mg Tablet) 650 mg PO Q6H PRN PRN Reason: Headache/Pain Mild Scale (1-3) Al Hydroxide/Mg Hydroxide (Magnesium Hydrox/Alum Hydrox 30 Ml Oral.Susp) 30 ml PO Q6H PRN PRN Reason: Heartburn/Nausea Amlodipine Besylate (Amlodipine Besylate 10 Mg Tablet) 10 mg PO DAILY [facility]; Protocol Last Admin: 01/25/22 10:04 Dose: 10 mg Documented By: NAVEED Atorvastatin Calcium (Atorvastatin Calcium 20 Mg Tablet) 20 mg PO DAILY [facility] Last Admin: 01/25/22 10:05 Dose: 20 mg Documented By: NAVEED Dextrose (Dextrose 50 % 25 Gm/50 Ml Syringe) 25 gm IVPUSH Q15M PRN; Protocol PRN Reason: per Hypoglycemia Standing Ord. Docusate Sodium (Docusate Sodium 100 Mg Capsule) 100 mg PO DAILY PRN PRN Reason: Constipation Glucose (Glucose Gel 15 Gm Gel..Gram.) 15 gm PO Q15M PRN; Protocol PRN Reason: per Hypoglycemia Standing Ord. Heparin Sodium (Porcine) (Heparin Sodium,Porcine 5,000 Unit/Ml Vial) 5,000 unit SUBCUT Q12H [facility] Last Admin: 01/25/22 00:01 Dose: 5,000 unit Documented By: JARRET Hydroxyzine HCl (Hydroxyzine Hcl 25 Mg Tablet) 25 mg PO Q6H PRN PRN Reason: Anxiety Sodium Chloride (Ns) 1,000 mls @ 125 mls/hr IVCONT .Q8H [facility] Last Admin: 01/25/22 10:02 Dose: 125 mls/hr Documented By: NAVEED Insulin Human Lispro (Insulin Lispro 100 Unit/Ml 3 Ml Vial) 0 unit SUBCUT QIDAS [facility]; Protocol Last Admin: 01/25/22 11:38 Dose: Not Given Documented By: NAVEED Non-Admin Reason: No Insulin Coverage Insulin Human Lispro (Insulin Lispro 100 Unit/Ml 3 Ml Vial) 5 unit SUBCUT QIDAS [facility] Last Admin: 01/25/22 11:39 Dose: Not Given Documented By: NAVEED Non-Admin Reason: No Insulin Coverage Magnesium Hydroxide (Milk Of Magnesia 30 Ml Oral.Susp) 30 ml PO DAILY PRN PRN Reason: Constipation Ondansetron HCl (Ondansetron Hcl 4 Mg/2 Ml Vial) 4 mg IVPUSH Q8H PRN PRN Reason: Nausea and Vomiting Pharmacy Consult (Consult Rx Perform Med Rec) 1 each MISCELLANE ONCE PRN PRN Reason: Consult order Risperidone (Risperidone 0.5 Mg Tablet) 0.5 mg PO BID [facility] Last Admin: 01/25/22 10:05 Dose: 0.5 mg Documented By: NAVEED Trazodone HCl (Trazodone Hcl 100 Mg Tablet) 100 mg PO BEDTIME [facility] Last Admin: 01/24/22 20:47 Dose: 100 mg Documented By: JARRET Labs CBC & Chem 7: 01/25/22 05:00 01/25/22 05:00 Labs: Laboratory Results - last 24 hr 01/24/22 01/24/22 01/25/22 16:20 19:43 05:00 MCV MCH MCHC RDW Plt Count MPV Absolute Nucleated RBC Nucleated RBC % (auto) Anion Gap 14 Estim Creat Clear Calc 29.8 Estimated GFR 23 POC Glucose 145 H 135 H Random Glucose 122 H Calcium 8.3 L Magnesium 3.2 H 01/25/22 01/25/22 01/25/22 05:00 07:47 11:32 MCV 92.0 MCH 28.8 MCHC 31.3 RDW 12.7 Plt Count 238 MPV 10.1 Absolute Nucleated RBC 0.000 Nucleated RBC % (auto) 0.0 Anion Gap Estim Creat Clear Calc Estimated GFR POC Glucose 121 H 124 H Random Glucose Calcium Magnesium Assessment and Plan (1) Schizophrenia: Status: Acute (2) Metabolic encephalopathy: Status: Acute (3) LIVE (acute kidney injury): Status: Acute Plan 61-year-old male with hypertension, hyperlipidemia, insulin-dependent type 2 diabetes, s/p amputation toes b/l feet currently admitted to Psychiatry with medical consult placed due to elevated creatinine and BUN. Given obtunded appearance, diaphoresis, with fever this morning noted by nursing staff of 100.4, with LIVE, patient will be tranferred to the medical floors for admission and further workup. #LIVE on CKD 3 Creatinine improved to 2.8 Likely ATN with hypotension and ARB Pending Doppler ultrasound to rule out renal artery stenosis Continue IVF Monitor intake and output Follow BNP Nephrology input appreciated, hold BP medications # metabolic encephalopathy No clear source of infection identified Likely secondary to acute kidney injury, improving No meningeal signs Recurrent reorientation Advanced diet as tolerated #Chronic normocytic anemia slight decrease from baseline likely from dilution Monitor H&H #Psychosis Restart risperidone #Insulin-dependent type 2 diabetes- uncontrolled iwth A1c 10.4 POC glucose diabetic diet # hypertension Continue amlodipine Hold lisinopril and losartan # HLD continue atorvastatin DVT prophylaxis heparin Full code Patient requires inpatient stay overnight due to LIVE and metabolic encephalopathy requiring IV fluids and further investigation because of renal failure and encephalopathy to prevent possible decompensation into renal failure Quality Stroke Does the patient have a stroke diagnosis?: No VTE Prior VTE?: No VTE Risk Level:: Medical - moderate - high VTE Device Contraindication: Treatment Not Indicated VTE Drug Contraindication: N/A - Med Ordered
[2022-01-25 15:59] VITALS: BP 130/59; PULSE 78; RESP 16; TEMP 36.9; O2SAT 93
[2022-01-25 16:33] LABS: Glucose, Whole Blood 121 mg/dL (60-115)
--- NOTE | 2022-01-25 17:14 | PM.PNNEP ---
Subjective Subjective Date of Service: 01/25/22 Interval history: depressed no complaints discussed renal biopsy, appears to understand and to want to go forward. tolearting IVF support Renal U/S being read Physical Exam Vital Signs: Vital Signs: Last Vital Signs Temp 98.5 F 01/25/22 15:59 Pulse 78 01/25/22 15:59 Resp 16 01/25/22 15:59 BP 130/59 L 01/25/22 15:59 Pulse Ox 93 01/25/22 15:59 O2 Del Method 01/25/22 15:59 BMI result Body Mass Index 28.1 Const: Other: Constitutional : Awake, interactive, not in distress, looks weak Neck : Normal inspection, Supple Cardiovascular : RRR, no JVP, no lower extremity edema Respiratory : good bilateral air entry, no crackles, wheezes or rhonchi Gastrointestinal: soft, lax, Normal bowel sounds, Non tender Skin : Warm, Dry Neurological : Alert & oriented to self and place, No focal deficit Objective Data Labs CBC & Chem 7: 01/25/22 05:00 01/25/22 05:00 Labs: Laboratory Results - last 24 hr 01/24/22 01/25/22 01/25/22 19:43 05:00 05:00 WBC 7.9 RBC 3.37 L Hgb 9.7 L Hct 31.0 L MCV 92.0 MCH 28.8 MCHC 31.3 RDW 12.7 Plt Count 238 MPV 10.1 Absolute Nucleated RBC 0.000 Nucleated RBC % (auto) 0.0 Sodium 144 Potassium 4.0 Chloride 114 H Carbon Dioxide 20 L Anion Gap 14 BUN 44 H Creatinine 2.81 H Estim Creat Clear Calc 29.8 Estimated GFR 23 POC Glucose 135 H Random Glucose 122 H Calcium 8.3 L Magnesium 3.2 H 01/25/22 01/25/22 01/25/22 07:47 11:32 16:21 WBC RBC Hgb Hct MCV MCH MCHC RDW Plt Count MPV Absolute Nucleated RBC Nucleated RBC % (auto) Sodium Potassium Chloride Carbon Dioxide Anion Gap BUN Creatinine Estim Creat Clear Calc Estimated GFR POC Glucose 121 H 124 H 121 H Random Glucose Calcium Magnesium Procedures Date of Service Date of Service: 01/25/22 Assessment & Plan Assessment and plan (1) Metabolic encephalopathy: Status: Acute (2) LIVE (acute kidney injury): Status: Acute Plan 1. LIVE: c/w renal hypoperfusion given history of hypotension and ARBs. Also U/A had hyaline casts. Renal U/S shows 10-11cm kidneys, unlikely APOORVA disease. 2. CKD 3b: BSL SCr 2.0-2.5. Serolgies done in early December all negative for GN. 3. Heavy UPCR:c/w DN given sero w/u unrevealing but ideally would need a kidney Bx at some point REC: - hold cozaar for now - pursue renal biopsy on Friday given proteinuria and seronegative CKD - hold SQH friday night. - IVF for now - renal panel daily. Time Spent With Patient Time: Total time spent is greater than 50% in coordination of care (as documented) at patient's floor/unit and/or counseling patient: Progress Note: Quality Stroke Does the patient have a stroke diagnosis?: No
--- NOTE | 2022-01-25 18:20 | PC.NURSE ---
Patient able to void but is retaining urine, bladder scaneed for [address] Acuna recommend to wait and recheck at 8. reported to upcoming nurse.
[2022-01-25 20:00] VITALS: BP 169/75; PULSE 78; RESP 17; TEMP 36.7; O2SAT 95
[2022-01-25 20:23] LABS: Glucose, Whole Blood 123 mg/dL (60-115)
[2022-01-25] MEDS: traZODone HCL 100 MG TABLET PO (20:55)
[2022-01-26] VITALS (7 sets, daily range): BP systolic 134–181; BP diastolic 62–88; PULSE 69–86; RESP 17–86; TEMP 36.1–36.7; O2SAT 94–97
[2022-01-26] MEDS: Heparin Sodium,Porcine 5,000 UNIT/ML VIAL 5000 UNIT SUBCUT ×3 (00:44→23:57)
[2022-01-26] MEDS: 0.9 % Sodium Chloride 1,000 ML 125 ML IVCONT (05:52)
[2022-01-26 07:00] LABS: Anion Gap 15 (12-20); Anion Gap 16 (12-20); Blood Urea Nitrogen 36 mg/dL (9-16); Calcium 8.4 mg/dL (8.4-10.2); Calcium 8.5 mg/dL (8.4-10.2); Carbon Dioxide 18 mmol/L (22-29); Carbon Dioxide 19 mmol/L (22-29); Chloride 118 mmol/L (96-108); Creatinine Clr Calc Pharmacy 38.3; Creatinine Clr Calc Pharmacy 38.5; Estimated Glomerular Filt Rate 31; Glucose Random 151 mg/dL (60-115); Glucose Random 152 mg/dL (60-115); Magnesium 2.6 mg/dL (1.6-2.6); Potassium 4.3 mmol/L (3.3-5.1); Sodium 148 mmol/L (135-145)
[2022-01-26 08:01] LABS: Glucose, Whole Blood 144 mg/dL (60-115)
[2022-01-26] MEDS: amLODIPine Besylate 10 MG TABLET PO (08:43)
[2022-01-26] MEDS: risperiDONE 0.5 MG TABLET PO ×2 (08:43→20:35)
[2022-01-26] MEDS: Atorvastatin Calcium 20 MG TABLET PO (08:43)
[2022-01-26] MEDS: Dextrose 5 % and Lactated Ring 1,000 ML 100 ML IVCONT (08:43)
[2022-01-26 11:36] LABS: Glucose, Whole Blood 263 mg/dL (60-115)
[2022-01-26] MEDS: carvediloL 6.25 MG TABLET PO ×2 (11:51→20:35)
[2022-01-26] MEDS: hydroCHLOROthiazide 25 MG TABLET PO (11:53)
[2022-01-26] MEDS: Insulin Lispro 100 UNIT/ML 3 ML VIAL SUBCUT ×6 (11:54→20:36)
--- NOTE | 2022-01-26 12:10 | P.PNIM_ITS ---
Subjective Subjective Date of Service: 01/26/22 Interval History: the patient was seen and evaluated this morning Laying in bed, more alert and interactive elevated blood pressure readings Creatinine level improving 2.1 No reported other overnight events. Systemic review: No fever, chills but reporting generalized weakness No chest pain, palpitation No shortness of breath or coughing No abdominal pain, nausea or vomiting No urinary symptoms No reported rash Physical Exam Vital Signs: Vital Signs: Last Vital Signs Temp 98.0 F 01/26/22 08:00 Pulse 86 01/26/22 08:00 Resp 86 H 01/26/22 08:00 BP 181/84 H 01/26/22 08:00 Pulse Ox 94 01/26/22 08:00 O2 Del Method 01/26/22 08:00 BMI result Body Mass Index 28.1 Const: Other: Constitutional : Awake, interactive, not in distress, looks weak Neck : Normal inspection, Supple Cardiovascular : RRR, no JVP, no lower extremity edema Respiratory : good bilateral air entry, no crackles, wheezes or rhonchi Gastrointestinal: soft, lax, Normal bowel sounds, Non tender Skin : Warm, Dry Neurological : Alert & oriented to self and place, No focal deficit Objective Data Active Medications Acetaminophen (Acetaminophen Supp 650 Mg Supp.Rect) 650 mg [place] Q6H PRN PRN Reason: Fever Acetaminophen (Acetaminophen 325 Mg Tablet) 650 mg PO Q6H PRN PRN Reason: Headache/Pain Mild Scale (1-3) Amlodipine Besylate (Amlodipine Besylate 10 Mg Tablet) 10 mg PO DAILY [facility]; Protocol Last Admin: 01/26/22 08:43 Dose: 10 mg Documented By: MARIBEL Atorvastatin Calcium (Atorvastatin Calcium 20 Mg Tablet) 20 mg PO DAILY [facility] Last Admin: 01/26/22 08:43 Dose: 20 mg Documented By: MARIBEL Carvedilol (Carvedilol 6.25 Mg Tablet) 6.25 mg PO BID [facility]; Protocol Last Admin: 01/26/22 11:51 Dose: 6.25 mg Documented By: MARIBEL Dextrose (Dextrose 50 % 25 Gm/50 Ml Syringe) 25 gm IVPUSH Q15M PRN; Protocol PRN Reason: per Hypoglycemia Standing Ord. Docusate Sodium (Docusate Sodium 100 Mg Capsule) 100 mg PO DAILY PRN PRN Reason: Constipation Glucose (Glucose Gel 15 Gm Gel..Gram.) 15 gm PO Q15M PRN; Protocol PRN Reason: per Hypoglycemia Standing Ord. Heparin Sodium (Porcine) (Heparin Sodium,Porcine 5,000 Unit/Ml Vial) 5,000 unit SUBCUT Q12H [facility] Stop: 01/27/22 22:00 Last Admin: 01/26/22 11:52 Dose: 5,000 unit Documented By: MARIBEL Hydrochlorothiazide (Hydrochlorothiazide 25 Mg Tablet) 25 mg PO DAILY [facility]; Protocol Last Admin: 01/26/22 11:53 Dose: 25 mg Documented By: MARIBEL Hydroxyzine HCl (Hydroxyzine Hcl 25 Mg Tablet) 25 mg PO Q6H PRN PRN Reason: Anxiety Insulin Human Lispro (Insulin Lispro 100 Unit/Ml 3 Ml Vial) 0 unit SUBCUT QIDAS [facility]; Protocol Last Admin: 01/26/22 11:54 Dose: 6 unit Documented By: MARIBEL Insulin Human Lispro (Insulin Lispro 100 Unit/Ml 3 Ml Vial) 5 unit SUBCUT QIDAS [facility] Last Admin: 01/26/22 11:55 Dose: 5 unit Documented By: MARIBEL Ondansetron HCl (Ondansetron Hcl 4 Mg/2 Ml Vial) 4 mg IVPUSH Q8H PRN PRN Reason: Nausea and Vomiting Pharmacy Consult (Consult Rx Perform Med Rec) 1 each MISCELLANE ONCE PRN PRN Reason: Consult order Risperidone (Risperidone 0.5 Mg Tablet) 0.5 mg PO BID [facility] Last Admin: 01/26/22 08:43 Dose: 0.5 mg Documented By: MARIBEL Trazodone HCl (Trazodone Hcl 100 Mg Tablet) 100 mg PO BEDTIME [facility] Last Admin: 01/25/22 20:55 Dose: 100 mg Documented By: MINERVA Labs CBC & Chem 7: 01/25/22 05:00 01/26/22 05:45 Labs: Laboratory Results - last 24 hr 01/25/22 01/25/22 01/26/22 16:21 20:17 05:45 Anion Gap 16 Estim Creat Clear Calc 38.3 Estimated GFR 31 POC Glucose 121 H 123 H Random Glucose 151 H Calcium 8.4 Magnesium Total Creatine Kinase 01/26/22 01/26/22 01/26/22 05:45 07:57 11:31 Anion Gap 15 Estim Creat Clear Calc 38.5 Estimated GFR 31 POC Glucose 144 H 263 H Random Glucose 152 H Calcium 8.5 Magnesium 2.6 Total Creatine Kinase 123 Assessment and Plan (1) LIVE (acute kidney injury): Status: Acute (2) Metabolic encephalopathy: Status: Acute Plan 61-year-old male with hypertension, hyperlipidemia, insulin-dependent type 2 diabetes, s/p amputation toes b/l feet currently admitted to Psychiatry with medical consult placed due to elevated creatinine and BUN. Given obtunded appearance, diaphoresis, with fever this morning noted by nursing staff of 100.4, with LIVE, patient will be tranferred to the medical floors for admission and further workup. #LIVE on CKD 3 Creatinine improved to 2.18 which seems to be baseline Likely ATN with hypotension and ARB Pending Doppler ultrasound to rule out renal artery stenosis DC IVF Monitor intake and output Nephrology input appreciated, hold BP medications, Kidney Bx by Friday # metabolic encephalopathy Likely secondary to acute kidney injury, improving Recurrent reorientation Advanced diet as tolerated # Hypernatremia 2/2 decrease PO intake and IVF DC fluids, encourage PO intake follow BMP #Chronic normocytic anemia slight decrease from baseline likely from dilution Monitor H&H #Psychosis Restart risperidone #Insulin-dependent type 2 diabetes- uncontrolled iwth A1c 10.4 POC glucose diabetic diet # hypertension Continue amlodipine DC lisinopril and losartan Start HCT and Carvedilol monitor BP # HLD continue atorvastatin DVT prophylaxis heparin Full code Patient requires inpatient stay overnight due to LIVE and metabolic encephalopathy requiring further investigation w kidney Bx to prevent possible decompensation into renal failure Quality Stroke Does the patient have a stroke diagnosis?: No VTE Prior VTE?: No VTE Risk Level:: Medical - moderate - high VTE Device Contraindication: Treatment Not Indicated VTE Drug Contraindication: N/A - Med Ordered
[2022-01-26 15:21] LABS: Anion Gap 17 (12-20); Blood Urea Nitrogen 31 mg/dL (9-16); Calcium 8.6 mg/dL (8.4-10.2); Carbon Dioxide 20 mmol/L (22-29); Chloride 111 mmol/L (96-108); Creatinine Clr Calc Pharmacy 39.4; Estimated Glomerular Filt Rate 32; Glucose Random 232 mg/dL (60-115); Potassium 4.5 mmol/L (3.3-5.1); Sodium 143 mmol/L (135-145)
[2022-01-26 16:02] LABS: Glucose, Whole Blood 196 mg/dL (60-115)
--- NOTE | 2022-01-26 17:09 | PM.PNNEP ---
Subjective Subjective Date of Service: 01/26/22 Interval history: no events GFR stable but off baseline Physical Exam Vital Signs: Vital Signs: Last Vital Signs Temp 97.0 F 01/26/22 15:04 Pulse 69 01/26/22 15:04 Resp 17 01/26/22 15:04 BP 153/88 H 01/26/22 15:04 Pulse Ox 97 01/26/22 15:04 O2 Del Method 01/26/22 15:04 BMI result Body Mass Index 28.1 Const: Other: Constitutional : Awake, interactive, not in distress, looks weak Neck : Normal inspection, Supple Cardiovascular : RRR, no JVP, no lower extremity edema Respiratory : good bilateral air entry, no crackles, wheezes or rhonchi Gastrointestinal: soft, lax, Normal bowel sounds, Non tender Skin : Warm, Dry Neurological : Alert & oriented to self and place, No focal deficit Objective Data Labs CBC & Chem 7: 01/25/22 05:00 01/26/22 14:56 Labs: Laboratory Results - last 24 hr 01/25/22 01/26/22 01/26/22 20:17 05:45 05:45 Sodium 148 H 148 H Potassium 4.3 4.3 Chloride 118 H 118 H Carbon Dioxide 18 L 19 L Anion Gap 16 15 BUN 36 H 36 H Creatinine 2.19 H 2.18 H Estim Creat Clear Calc 38.3 38.5 Estimated GFR 31 31 POC Glucose 123 H Random Glucose 151 H 152 H Calcium 8.4 8.5 Magnesium 2.6 Total Creatine Kinase 123 01/26/22 01/26/22 01/26/22 07:57 11:31 14:56 Sodium 143 Potassium 4.5 Chloride 111 H Carbon Dioxide 20 L Anion Gap 17 BUN 31 H Creatinine 2.13 H Estim Creat Clear Calc 39.4 Estimated GFR 32 POC Glucose 144 H 263 H Random Glucose 232 H D Calcium 8.6 Magnesium Total Creatine Kinase 01/26/22 15:06 Sodium Potassium Chloride Carbon Dioxide Anion Gap BUN Creatinine Estim Creat Clear Calc Estimated GFR POC Glucose 196 H Random Glucose Calcium Magnesium Total Creatine Kinase Procedures Date of Service Date of Service: 01/26/22 Assessment & Plan Assessment and plan (1) Metabolic encephalopathy: Status: Acute (2) LIVE (acute kidney injury): Status: Acute Plan 1. LIVE: c/w renal hypoperfusion given history of hypotension and ARBs. Also U/A had hyaline casts. Renal U/S shows 10-11cm kidneys, unlikely APOORVA disease. 2. CKD 3b: BSL SCr 2.0-2.5. Serolgies done in early December all negative for GN. 3. Heavy UPCR:c/w DN given sero w/u unrevealing but ideally would need a kidney Bx at some point REC: - hold cozaar for now - pursue renal biopsy on Friday given proteinuria and seronegative CKD. Atleast will be good for prognostication if simply diabetic neprhopathy. - hold SQH friday night. - pt now on HCTZ / coreg with stable GFR Time Spent With Patient Time: Total time spent is greater than 50% in coordination of care (as documented) at patient's floor/unit and/or counseling patient: Progress Note: Quality Stroke Does the patient have a stroke diagnosis?: No
[2022-01-26 19:28] LABS: Glucose, Whole Blood 195 mg/dL (60-115)
[2022-01-26] MEDS: traZODone HCL 100 MG TABLET PO (20:35)
[2022-01-27 04:00] VITALS: BP 145/70; PULSE 71; RESP 18; TEMP 36.6; O2SAT 95
[2022-01-27 06:43] LABS: Anion Gap 15 (12-20); Blood Urea Nitrogen 27 mg/dL (9-16); Calcium 8.8 mg/dL (8.4-10.2); Carbon Dioxide 21 mmol/L (22-29); Chloride 112 mmol/L (96-108); Creatinine Clr Calc Pharmacy 43.4; Estimated Glomerular Filt Rate 36; Glucose Random 156 mg/dL (60-115); Potassium 4.1 mmol/L (3.3-5.1); Sodium 144 mmol/L (135-145)
[2022-01-27 08:00] VITALS: BP 179/85; PULSE 75; RESP 16; TEMP 37; O2SAT 94
[2022-01-27] MEDS: carvediloL 6.25 MG TABLET PO ×2 (08:06→13:25)
[2022-01-27] MEDS: hydroCHLOROthiazide 25 MG TABLET PO (08:06)
[2022-01-27] MEDS: amLODIPine Besylate 10 MG TABLET PO (08:06)
[2022-01-27] MEDS: risperiDONE 0.5 MG TABLET PO ×2 (08:06→20:32)
[2022-01-27] MEDS: Atorvastatin Calcium 20 MG TABLET PO (08:06)
[2022-01-27] MEDS: Insulin Lispro 100 UNIT/ML 3 ML VIAL SUBCUT ×8 (08:14→20:31)
[2022-01-27 08:19] LABS: Glucose, Whole Blood 167 mg/dL (60-115)
--- NOTE | 2022-01-27 11:16 | HO.PM.IMPN ---
Subjective Subjective Date of Service: 01/27/22 Interval History: the patient was seen and evaluated this morning Laying in bed, more alert and interactive elevated blood pressure readings Creatinine level improving 1.9 No reported other overnight events. Systemic review: No fever, chills but reporting generalized weakness No chest pain, palpitation No shortness of breath or coughing No abdominal pain, nausea or vomiting No urinary symptoms No reported rash Physical Exam Vital Signs: Vital Signs: Last Vital Signs Temp 98.6 F 01/27/22 08:00 Pulse 75 01/27/22 08:00 Resp 16 01/27/22 08:00 BP 179/85 H 01/27/22 08:00 Pulse Ox 94 01/27/22 08:00 O2 Del Method 01/27/22 08:00 BMI result Body Mass Index 28.1 Const: Other: Constitutional : Awake, interactive, not in distress, looks weak Neck : Normal inspection, Supple Cardiovascular : RRR, no JVP, no lower extremity edema Respiratory : good bilateral air entry, no crackles, wheezes or rhonchi Gastrointestinal: soft, lax, Normal bowel sounds, Non tender Skin : Warm, Dry Neurological : Alert & oriented to self and place, No focal deficit Objective Data Active Medications Acetaminophen (Acetaminophen Supp 650 Mg Supp.Rect) 650 mg [place] Q6H PRN PRN Reason: Fever Acetaminophen (Acetaminophen 325 Mg Tablet) 650 mg PO Q6H PRN PRN Reason: Headache/Pain Mild Scale (1-3) Amlodipine Besylate (Amlodipine Besylate 10 Mg Tablet) 10 mg PO DAILY [facility]; Protocol Last Admin: 01/27/22 08:06 Dose: 10 mg Documented By: MARIBEL Atorvastatin Calcium (Atorvastatin Calcium 20 Mg Tablet) 20 mg PO DAILY [facility] Last Admin: 01/27/22 08:06 Dose: 20 mg Documented By: MARIBEL Carvedilol (Carvedilol 6.25 Mg Tablet) 6.25 mg PO BID [facility]; Protocol Last Admin: 01/27/22 08:06 Dose: 6.25 mg Documented By: MARIBEL Dextrose (Dextrose 50 % 25 Gm/50 Ml Syringe) 25 gm IVPUSH Q15M PRN; Protocol PRN Reason: per Hypoglycemia Standing Ord. Docusate Sodium (Docusate Sodium 100 Mg Capsule) 100 mg PO DAILY PRN PRN Reason: Constipation Glucose (Glucose Gel 15 Gm Gel..Gram.) 15 gm PO Q15M PRN; Protocol PRN Reason: per Hypoglycemia Standing Ord. Heparin Sodium (Porcine) (Heparin Sodium,Porcine 5,000 Unit/Ml Vial) 5,000 unit SUBCUT Q12H [facility]PL[facility] Stop: 01/27/22 22:00 Last Admin: 01/26/22 23:57 Dose: 5,000 unit Documented By: MINERVA Hydrochlorothiazide (Hydrochlorothiazide 25 Mg Tablet) 25 mg PO DAILY [facility]; Protocol Last Admin: 01/27/22 08:06 Dose: 25 mg Documented By: MARIBEL Hydroxyzine HCl (Hydroxyzine Hcl 25 Mg Tablet) 25 mg PO Q6H PRN PRN Reason: Anxiety Insulin Human Lispro (Insulin Lispro 100 Unit/Ml 3 Ml Vial) 0 unit SUBCUT QIDAS [facility]PLAC[facility]; Protocol Last Admin: 01/27/22 08:14 Dose: 2 unit Documented By: MARIBEL Insulin Human Lispro (Insulin Lispro 100 Unit/Ml 3 Ml Vial) 5 unit SUBCUT QIDAS [facility]PL[facility] Last Admin: 01/27/22 08:15 Dose: 5 unit Documented By: MARIBEL Ondansetron HCl (Ondansetron Hcl 4 Mg/2 Ml Vial) 4 mg IVPUSH Q8H PRN PRN Reason: Nausea and Vomiting Pharmacy Consult (Consult Rx Perform Med Rec) 1 each MISCELLANE ONCE PRN PRN Reason: Consult order Risperidone (Risperidone 0.5 Mg Tablet) 0.5 mg PO BID [facility] Last Admin: 01/27/22 08:06 Dose: 0.5 mg Documented By: MARIBEL Trazodone HCl (Trazodone Hcl 100 Mg Tablet) 100 mg PO BEDTIME REPLACED BY [facility] Last Admin: 01/26/22 20:35 Dose: 100 mg Documented By: MINERVA Labs CBC & Chem 7: 01/25/22 05:00 01/27/22 06:00 Labs: Laboratory Results - last 24 hr 01/26/22 01/26/22 01/26/22 14:56 15:06 19:24 Anion Gap 17 Estim Creat Clear Calc 39.4 Estimated GFR 32 POC Glucose 196 H 195 H Random Glucose 232 H D Calcium 8.6 01/27/22 01/27/22 06:00 08:08 Anion Gap 15 Estim Creat Clear Calc 43.4 Estimated GFR 36 POC Glucose 167 H Random Glucose 156 H Calcium 8.8 Assessment and Plan (1) LIVE (acute kidney injury): Status: Acute (2) Metabolic encephalopathy: Status: Acute Plan 61-year-old male with hypertension, hyperlipidemia, insulin-dependent type 2 diabetes, s/p amputation toes b/l feet currently admitted to Psychiatry with medical consult placed due to elevated creatinine and BUN. Given obtunded appearance, diaphoresis, with fever this morning noted by nursing staff of 100.4, with LIVE, patient will be tranferred to the medical floors for admission and further workup. #LIVE on CKD 3 Creatinine improved to 1.9 which seems to be baseline Likely ATN with hypotension and ARB Pending Doppler ultrasound to rule out renal artery stenosis DC IVF Monitor intake and output Nephrology input appreciated, hold BP medications, Kidney Bx by Friday Keep NPO post midnight # metabolic encephalopathy Likely secondary to acute kidney injury, improving Recurrent reorientation Advanced diet as tolerated # Hypernatremia 2/2 decrease PO intake and IVF DC fluids, encourage PO intake follow BMP #Chronic normocytic anemia slight decrease from baseline likely from dilution Monitor H&H #Psychosis Restart risperidone Get psychiatry evaluation for medication advice and placement purposes #Insulin-dependent type 2 diabetes- uncontrolled iwth A1c 10.4 POC glucose diabetic diet # hypertension Continue amlodipine DC lisinopril and losartan Increase HCT and Carvedilol monitor BP # HLD continue atorvastatin DVT prophylaxis heparin Full code Patient requires inpatient stay overnight due to LIVE and metabolic encephalopathy requiring further investigation w kidney Bx to prevent possible decompensation into renal failure Quality Stroke Does the patient have a stroke diagnosis?: No VTE Prior VTE?: No VTE Risk Level:: Medical - moderate - high VTE Device Contraindication: Treatment Not Indicated VTE Drug Contraindication: N/A - Med Ordered
[2022-01-27 11:17] VITALS: BP 150/90; PULSE 72; RESP 19; TEMP 36.7; O2SAT 96
[2022-01-27 11:22] LABS: Glucose, Whole Blood 191 mg/dL (60-115)
[2022-01-27 14:57] VITALS: BP 148/82; PULSE 65; RESP 17; TEMP 36.3; O2SAT 97
--- NOTE | 2022-01-27 15:37 | PM.PNNEP ---
Subjective Subjective Date of Service: 01/27/22 Interval history: Cr better very proteinuric Physical Exam Vital Signs: Vital Signs: Last Vital Signs Temp 97.4 F 01/27/22 14:57 Pulse 65 01/27/22 14:57 Resp 17 01/27/22 14:57 BP 148/82 H 01/27/22 14:57 Pulse Ox 97 01/27/22 14:57 O2 Del Method 01/27/22 14:57 BMI result Body Mass Index 28.1 Const: Other: Constitutional : Awake, interactive, not in distress, looks weak Neck : Normal inspection, Supple Cardiovascular : RRR, no JVP, no lower extremity edema Respiratory : good bilateral air entry, no crackles, wheezes or rhonchi Gastrointestinal: soft, lax, Normal bowel sounds, Non tender Skin : Warm, Dry Neurological : Alert & oriented to self and place, No focal deficit Objective Data Labs CBC & Chem 7: 01/25/22 05:00 01/27/22 06:00 Labs: Laboratory Results - last 24 hr 01/26/22 01/27/22 01/27/22 19:24 06:00 08:08 Sodium 144 Potassium 4.1 Chloride 112 H Carbon Dioxide 21 L Anion Gap 15 BUN 27 H Creatinine 1.93 H Estim Creat Clear Calc 43.4 Estimated GFR 36 POC Glucose 195 H 167 H Random Glucose 156 H Calcium 8.8 01/27/22 11:17 Sodium Potassium Chloride Carbon Dioxide Anion Gap BUN Creatinine Estim Creat Clear Calc Estimated GFR POC Glucose 191 H Random Glucose Calcium Procedures Date of Service Date of Service: 01/27/22 Assessment & Plan Assessment and plan (1) Metabolic encephalopathy: Status: Acute (2) LIVE (acute kidney injury): Status: Acute Plan 1. LIVE: c/w renal hypoperfusion given history of hypotension and ARBs. Also U/A had hyaline casts. Renal U/S shows 10-11cm kidneys, unlikely APOORVA disease. 2. CKD 3b: BSL SCr 2.0-2.5. Serolgies done in early December all negative for GN. 3. Heavy UPCR:c/w DN given sero w/u unrevealing but ideally would need a kidney Bx at some point REC: - hold cozaar for now - pursue renal biopsy on Friday given proteinuria and seronegative CKD. Atleast will be good for prognostication if simply diabetic neprhopathy. - hold [facility] friday. - pt now on HCTZ / coreg with stable GFR Time Spent With Patient Time: Total time spent is greater than 50% in coordination of care (as documented) at patient's floor/unit and/or counseling patient: Progress Note: Quality Stroke Does the patient have a stroke diagnosis?: No
[2022-01-27 16:08] LABS: Glucose, Whole Blood 156 mg/dL (60-115)
[2022-01-27 18:46] VITALS: BP 154/80; PULSE 64; RESP 18; TEMP 37; O2SAT 96
[2022-01-27 19:46] LABS: Glucose, Whole Blood 162 mg/dL (60-115)
[2022-01-27] MEDS: traZODone HCL 100 MG TABLET PO (20:32)
[2022-01-27] MEDS: carvediloL 12.5 MG TABLET PO (20:32)
[2022-01-27] MEDS: Acetaminophen 325 MG TABLET 650 MG PO (20:39)
[2022-01-28] VITALS: BP 121/63; PULSE 61; RESP 18; TEMP 36.6; O2SAT 95
[2022-01-28 04:03] VITALS: BP 132/69; PULSE 64; RESP 18; TEMP 36.9; O2SAT 96
[2022-01-28 06:49] LABS: Anion Gap 16 (12-20); Blood Urea Nitrogen 31 mg/dL (9-16); Calcium 8.5 mg/dL (8.4-10.2); Carbon Dioxide 21 mmol/L (22-29); Chloride 108 mmol/L (96-108); Estimated Glomerular Filt Rate 29; Glucose Random 126 mg/dL (60-115); Potassium 3.8 mmol/L (3.3-5.1); Sodium 141 mmol/L (135-145)
[2022-01-28 06:52] LABS: Prothrombin Time 11.7 SEC (10.0-13.1)
[2022-01-28 07:44] VITALS: BP 157/77; PULSE 70; RESP 18; TEMP 36.9; O2SAT 93
[2022-01-28 07:52] LABS: Glucose, Whole Blood 139 mg/dL (60-115)
[2022-01-28] MEDS: Atorvastatin Calcium 20 MG TABLET PO (08:49)
[2022-01-28] MEDS: amLODIPine Besylate 10 MG TABLET PO (08:49)
[2022-01-28] MEDS: hydroCHLOROthiazide 25 MG TABLET PO (08:49)
[2022-01-28] MEDS: carvediloL 12.5 MG TABLET PO ×2 (08:49→20:27)
[2022-01-28] MEDS: risperiDONE 0.5 MG TABLET PO ×2 (08:49→20:27)
--- NOTE | 2022-01-28 11:40 | HO.PM.IMPN ---
Subjective Subjective Date of Service: 01/28/22 Interval History: the patient was seen and evaluated this morning Laying in bed, more alert and interactive Butter controlled blood pressure Creatinine level pump to 2.3 No reported other overnight events. Systemic review: No fever, chills but reporting generalized weakness No chest pain, palpitation No shortness of breath or coughing No abdominal pain, nausea or vomiting No urinary symptoms No reported rash Physical Exam Vital Signs: Vital Signs: Last Vital Signs Temp 98.5 F 01/28/22 07:44 Pulse 70 01/28/22 07:44 Resp 18 01/28/22 07:44 BP 157/77 H 01/28/22 07:44 Pulse Ox 93 01/28/22 07:44 O2 Del Method 01/28/22 07:44 BMI result Body Mass Index 28.1 Const: Other: Constitutional : Awake, interactive, not in distress Neck : Normal inspection, Supple Cardiovascular : RRR, no JVP, no lower extremity edema Respiratory : good bilateral air entry, no crackles, wheezes or rhonchi Gastrointestinal: soft, lax, Normal bowel sounds, Non tender Skin : Warm, Dry Neurological : Alert & oriented to self and place, No focal deficit Objective Data Active Medications Acetaminophen (Acetaminophen Supp 650 Mg Supp.Rect) 650 mg [place] Q6H PRN PRN Reason: Fever Acetaminophen (Acetaminophen 325 Mg Tablet) 650 mg PO Q6H PRN PRN Reason: Headache/Pain Mild Scale (1-3) Last Admin: 01/27/22 20:39 Dose: 650 mg Documented By: JACQUE Amlodipine Besylate (Amlodipine Besylate 10 Mg Tablet) 10 mg PO DAILY [facility]; Protocol Last Admin: 01/28/22 08:49 Dose: 10 mg Documented By: DANYELLE Atorvastatin Calcium (Atorvastatin Calcium 20 Mg Tablet) 20 mg PO DAILY [facility] Last Admin: 01/28/22 08:49 Dose: 20 mg Documented By: DANYELLE Carvedilol (Carvedilol 12.5 Mg Tablet) 12.5 mg PO BID [facility]; Protocol Last Admin: 01/28/22 08:49 Dose: 12.5 mg Documented By: DANYELLE Dextrose (Dextrose 50 % 25 Gm/50 Ml Syringe) 25 gm IVPUSH Q15M PRN; Protocol PRN Reason: per Hypoglycemia Standing Ord. Docusate Sodium (Docusate Sodium 100 Mg Capsule) 100 mg PO DAILY PRN PRN Reason: Constipation Glucose (Glucose Gel 15 Gm Gel..Gram.) 15 gm PO Q15M PRN; Protocol PRN Reason: per Hypoglycemia Standing Ord. Hydrochlorothiazide (Hydrochlorothiazide 25 Mg Tablet) 25 mg PO DAILY [facility]; Protocol Last Admin: 01/28/22 08:49 Dose: 25 mg Documented By: DANYELLE Hydroxyzine HCl (Hydroxyzine Hcl 25 Mg Tablet) 25 mg PO Q6H PRN PRN Reason: Anxiety Insulin Human Lispro (Insulin Lispro 100 Unit/Ml 3 Ml Vial) 0 unit SUBCUT QIDACHS [facility]; Protocol Last Admin: 01/28/22 08:43 Dose: Not Given Documented By: DANYELLE Non-Admin Reason: No Insulin Coverage Insulin Human Lispro (Insulin Lispro 100 Unit/Ml 3 Ml Vial) 5 unit SUBCUT QIDACHS [facility] Last Admin: 01/28/22 08:48 Dose: Not Given Documented By: DANYELLE Non-Admin Reason: NPO Ondansetron HCl (Ondansetron Hcl 4 Mg/2 Ml Vial) 4 mg IVPUSH Q8H PRN PRN Reason: Nausea and Vomiting Pharmacy Consult (Consult Rx Perform Med Rec) 1 each MISCELLANE ONCE PRN PRN Reason: Consult order Risperidone (Risperidone 0.5 Mg Tablet) 0.5 mg PO BID [facility] Last Admin: 01/28/22 08:49 Dose: 0.5 mg Documented By: DANYELLE Trazodone HCl (Trazodone Hcl 100 Mg Tablet) 100 mg PO BEDTIME [facility] Last Admin: 01/27/22 20:32 Dose: 100 mg Documented By: JACQUE Labs CBC & Chem 7: 01/25/22 05:00 01/28/22 06:08 Labs: Laboratory Results - last 24 hr 01/27/22 01/27/22 01/28/22 14:59 18:50 06:08 PT INR Anion Gap 16 Estim Creat Clear Calc 36.0 Estimated GFR 29 POC Glucose 156 H 162 H Random Glucose 126 H Calcium 8.5 01/28/22 01/28/22 06:08 07:46 PT 11.7 INR 1.0 Anion Gap Estim Creat Clear Calc Estimated GFR POC Glucose 139 H Random Glucose Calcium Assessment and Plan (1) LIVE (acute kidney injury): Status: Acute (2) Metabolic encephalopathy: Status: Acute Plan 61-year-old male with hypertension, hyperlipidemia, insulin-dependent type 2 diabetes, s/p amputation toes b/l feet currently admitted to Psychiatry with medical consult placed due to elevated creatinine and BUN. Given obtunded appearance, diaphoresis, with fever this morning noted by nursing staff of 100.4, with LIVE, patient will be tranferred to the medical floors for admission and further workup. #LIVE on CKD 3 Creatinine lb to 2.3 close to his baseline Likely ATN with hypotension and ARB Doppler ultrasound showed evidence of right renal artery stenosis Monitor intake and output Nephrology input appreciated, hold nephrotoxic medications, Kidney Bx tomorrow Keep NPO post midnight # metabolic encephalopathy Likely secondary to acute kidney injury, improving Recurrent reorientation Advanced diet as tolerated # Hypernatremia 2/2 decrease PO intake and IVF DC fluids, encourage PO intake follow BMP #Chronic normocytic anemia slight decrease from baseline likely from dilution Monitor H&H #Psychosis Restart risperidone To get care team evaluation once medically clear for medication advice and placement purposes #Insulin-dependent type 2 diabetes- uncontrolled iwth A1c 10.4 POC glucose diabetic diet # hypertension Continue amlodipine DC lisinopril and losartan Increase HCT and Carvedilol monitor BP # HLD continue atorvastatin DVT prophylaxis heparin Full code Patient requires inpatient stay overnight due to LIVE requiring further investigation w kidney Bx to prevent possible decompensation into renal failure Quality Stroke Does the patient have a stroke diagnosis?: No VTE Prior VTE?: No VTE Risk Level:: Medical - moderate - high VTE Device Contraindication: Treatment Not Indicated VTE Drug Contraindication: N/A - Med Ordered
[2022-01-28 11:42] VITALS: BP 111/80; PULSE 65; RESP 18; O2SAT 97
--- NOTE | 2022-01-28 11:45 | PM.PNNEP ---
Subjective Subjective Date of Service: 01/28/22 Interval history: Events noted; All recent data reviewed Physical Exam Vital Signs: Vital Signs: Last Vital Signs Temp 98.5 F 01/28/22 07:44 Pulse 70 01/28/22 07:44 Resp 18 01/28/22 07:44 BP 157/77 H 01/28/22 07:44 Pulse Ox 93 01/28/22 07:44 O2 Del Method 01/28/22 07:44 BMI result Body Mass Index 28.1 Const: General: no acute distress Eyes: EOM: EOMs intact bilaterally Neck: Neck: Yes supple Resp: Auscultation: diminished lung sounds Cardio: Rate: regular rate GI: Palpation (GI): Soft to palpation Neuro: General: moves all extremities Objective Data Labs CBC & Chem 7: 01/25/22 05:00 01/28/22 06:08 Labs: Laboratory Results - last 24 hr 01/27/22 01/27/22 01/28/22 14:59 18:50 06:08 PT INR Sodium 141 Potassium 3.8 Chloride 108 Carbon Dioxide 21 L Anion Gap 16 BUN 31 H Creatinine 2.33 H Estim Creat Clear Calc 36.0 Estimated GFR 29 POC Glucose 156 H 162 H Random Glucose 126 H Calcium 8.5 01/28/22 01/28/22 06:08 07:46 PT 11.7 INR 1.0 Sodium Potassium Chloride Carbon Dioxide Anion Gap BUN Creatinine Estim Creat Clear Calc Estimated GFR POC Glucose 139 H Random Glucose Calcium Procedures Date of Service Date of Service: 01/28/22 Assessment & Plan Assessment and plan (1) LIVE (acute kidney injury): Status: Acute Assessment and Plan: 1. LIVE: c/w renal hypoperfusion given history of hypotension and ARBs. Also U/A had hyaline casts. Renal U/S shows 10-11cm kidneys, unlikely APOORVA disease. 2. CKD 3b: BSL SCr 2.0-2.5. Serolgies done in early December all negative for GN. 3. Heavy UPCR:c/w DN given sero w/u unrevealing but ideally would need a kidney Bx at some point Hold cozaar for now Renal biopsy tomorrow given proteinuria and seronegative CKD (At least will be good for prognostication if simply diabetic nephropathy.) C/W current supportive care for now Time Spent With Patient Time: Total time spent is greater than 50% in coordination of care (as documented) at patient's floor/unit and/or counseling patient: Progress Note: Quality Stroke Does the patient have a stroke diagnosis?: No
[2022-01-28 11:48] LABS: Glucose, Whole Blood 186 mg/dL (60-115)
[2022-01-28] MEDS: Insulin Lispro 100 UNIT/ML 3 ML VIAL SUBCUT ×4 (12:16→16:51)
[2022-01-28 16:09] VITALS: BP 126/72; PULSE 64; RESP 20; TEMP 36.3; O2SAT 97
[2022-01-28 16:37] LABS: Glucose, Whole Blood 248 mg/dL (60-115)
[2022-01-28 19:36] VITALS: BP 141/74; PULSE 67; RESP 18; TEMP 36.9; O2SAT 100
[2022-01-28 19:47] LABS: Glucose, Whole Blood 140 mg/dL (60-115)
[2022-01-28] MEDS: traZODone HCL 100 MG TABLET PO (20:27)
[2022-01-29] VITALS (11 sets, daily range): BP systolic 110–145; BP diastolic 61–76; PULSE 61–70; RESP 12–18; TEMP 36.2–36.9; O2SAT 96–99
[2022-01-29 06:55] LABS: Anion Gap 16 (12-20); Blood Urea Nitrogen 36 mg/dL (9-16); Calcium 8.8 mg/dL (8.4-10.2); Carbon Dioxide 21 mmol/L (22-29); Chloride 109 mmol/L (96-108); Creatinine Clr Calc Pharmacy 34.5; Estimated Glomerular Filt Rate 27; Glucose Random 123 mg/dL (60-115); Sodium 142 mmol/L (135-145)
[2022-01-29] MEDS: Atorvastatin Calcium 20 MG TABLET PO (07:36)
[2022-01-29] MEDS: amLODIPine Besylate 10 MG TABLET PO (07:36)
[2022-01-29] MEDS: risperiDONE 0.5 MG TABLET PO ×2 (07:36→20:41)
[2022-01-29] MEDS: hydroCHLOROthiazide 25 MG TABLET PO (07:36)
[2022-01-29] MEDS: carvediloL 12.5 MG TABLET PO ×2 (07:36→20:41)
[2022-01-29 08:07] LABS: Glucose, Whole Blood 141 mg/dL (60-115)
--- NOTE | 2022-01-29 09:37 | HO.RADPN ---
RADIOLOGY Narrative Narrative: CT guided biopsy lower pole right kidney. 2 18g core biopsies using coaxial system. No complication.
[2022-01-29] MEDS: Lidocaine HCl 1 % MPF 5 ML VIAL 10 ML SUBCUT (10:35)
--- NOTE | 2022-01-29 11:06 | PM.PNNEP ---
Subjective Subjective Date of Service: 01/29/22 Interval history: Events noted; All recent data reviewed Physical Exam Vital Signs: Vital Signs: Last Vital Signs Temp 97.8 F 01/29/22 10:17 Pulse 64 01/29/22 10:17 Resp 16 01/29/22 10:17 BP 134/74 01/29/22 10:17 Pulse Ox 97 01/29/22 10:17 O2 Del Method 01/29/22 10:17 BMI result Body Mass Index 28.1 Const: General: no acute distress Eyes: EOM: EOMs intact bilaterally Neck: Neck: Yes supple Resp: Auscultation: diminished lung sounds Cardio: Rate: regular rate GI: Palpation (GI): Soft to palpation Neuro: General: moves all extremities Objective Data Labs CBC & Chem 7: 01/25/22 05:00 01/29/22 06:11 Labs: Laboratory Results - last 24 hr 01/28/22 01/28/22 01/28/22 11:42 16:12 19:42 Sodium Potassium Chloride Carbon Dioxide Anion Gap BUN Creatinine Estim Creat Clear Calc Estimated GFR POC Glucose 186 H 248 H 140 H Random Glucose Calcium 01/29/22 01/29/22 06:11 07:19 Sodium 142 Potassium 4.0 Chloride 109 H Carbon Dioxide 21 L Anion Gap 16 BUN 36 H Creatinine 2.43 H Estim Creat Clear Calc 34.5 Estimated GFR 27 POC Glucose 141 H Random Glucose 123 H Calcium 8.8 Procedures Date of Service Date of Service: 01/29/22 Assessment & Plan Assessment and plan (1) LIVE (acute kidney injury): Status: Acute Assessment and Plan: 1. LIVE: c/w renal hypoperfusion given history of hypotension and ARBs. Also U/A had hyaline casts. Renal U/S shows 10-11cm kidneys, unlikely APOORVA disease. 2. CKD 3b: BSL SCr 2.0-2.5. Serolgies done in early December all negative for GN. 3. Heavy UPCR:c/w DN given sero w/u unrevealing but ideally would need a kidney Bx at some point Hold cozaar/ HCTZ for now Renal biopsy today given proteinuria and seronegative CKD (At least will be good for prognostication if simply diabetic nephropathy.) Renal function stable; C/W current supportive care for now Time Spent With Patient Time: Total time spent is greater than 50% in coordination of care (as documented) at patient's floor/unit and/or counseling patient: Progress Note: Quality Stroke Does the patient have a stroke diagnosis?: No
[2022-01-29 11:23] LABS: Glucose, Whole Blood 180 mg/dL (60-115)
--- NOTE | 2022-01-29 11:50 | P.PNIM_ITS ---
Subjective Subjective Date of Service: 01/29/22 Interval History: the patient was seen and evaluated this morning Laying in bed, more alert and interactive Butter controlled blood pressure Creatinine level pump to 2.3 going for kidney biopsy No reported other overnight events. Systemic review: No fever, chills but reporting generalized weakness No chest pain, palpitation No shortness of breath or coughing No abdominal pain, nausea or vomiting No urinary symptoms No reported rash Physical Exam Vital Signs: Vital Signs: Last Vital Signs Temp 97.8 F 01/29/22 10:17 Pulse 64 01/29/22 10:17 Resp 16 01/29/22 10:17 BP 134/74 01/29/22 10:17 Pulse Ox 97 01/29/22 10:17 O2 Del Method 01/29/22 10:17 BMI result Body Mass Index 28.1 Const: Other: Constitutional : Awake, interactive, not in distress Neck : Normal inspection, Supple Cardiovascular : RRR, no JVP, no lower extremity edema Respiratory : good bilateral air entry, no crackles, wheezes or rhonchi Gastrointestinal: soft, lax, Normal bowel sounds, Non tender Skin : Warm, Dry Neurological : Alert & oriented to self and place, No focal deficit Objective Data Active Medications Acetaminophen (Acetaminophen Supp 650 Mg Supp.Rect) 650 mg [place] Q6H PRN PRN Reason: Fever Acetaminophen (Acetaminophen 325 Mg Tablet) 650 mg PO Q6H PRN PRN Reason: Headache/Pain Mild Scale (1-3) Last Admin: 01/27/22 20:39 Dose: 650 mg Documented By: JACQUE Amlodipine Besylate (Amlodipine Besylate 10 Mg Tablet) 10 mg PO DAILY [facility]; Protocol Last Admin: 01/29/22 07:36 Dose: 10 mg Documented By: DANYELLE Atorvastatin Calcium (Atorvastatin Calcium 20 Mg Tablet) 20 mg PO DAILY [facility] Last Admin: 01/29/22 07:36 Dose: 20 mg Documented By: DANYELLE Carvedilol (Carvedilol 12.5 Mg Tablet) 12.5 mg PO BID [facility]; Protocol Last Admin: 01/29/22 07:36 Dose: 12.5 mg Documented By: DANYELLE Dextrose (Dextrose 50 % 25 Gm/50 Ml Syringe) 25 gm IVPUSH Q15M PRN; Protocol PRN Reason: per Hypoglycemia Standing Ord. Docusate Sodium (Docusate Sodium 100 Mg Capsule) 100 mg PO DAILY PRN PRN Reason: Constipation Glucose (Glucose Gel 15 Gm Gel..Gram.) 15 gm PO Q15M PRN; Protocol PRN Reason: per Hypoglycemia Standing Ord. Hydroxyzine HCl (Hydroxyzine Hcl 25 Mg Tablet) 25 mg PO Q6H PRN PRN Reason: Anxiety Insulin Human Lispro (Insulin Lispro 100 Unit/Ml 3 Ml Vial) 0 unit SUBCUT [facility]; Protocol Last Admin: 01/29/22 08:57 Dose: Not Given Documented By: DANYELLE Non-Admin Reason: No Insulin Coverage Insulin Human Lispro (Insulin Lispro 100 Unit/Ml 3 Ml Vial) 5 unit SUBCUT QIDACHS [facility] Last Admin: 01/29/22 08:57 Dose: Not Given Documented By: DANYELLE Non-Admin Reason: NPO Ondansetron HCl (Ondansetron Hcl 4 Mg/2 Ml Vial) 4 mg IVPUSH Q8H PRN PRN Reason: Nausea and Vomiting Pharmacy Consult (Consult Rx Perform Med Rec) 1 each MISCELLANE ONCE PRN PRN Reason: Consult order Risperidone (Risperidone 0.5 Mg Tablet) 0.5 mg PO BID [facility] Last Admin: 01/29/22 07:36 Dose: 0.5 mg Documented By: DANYELLE Trazodone HCl (Trazodone Hcl 100 Mg Tablet) 100 mg PO BEDTIME [facility] Last Admin: 01/28/22 20:27 Dose: 100 mg Documented By: MARYANA Labs CBC & Chem 7: 01/25/22 05:00 01/29/22 06:11 Labs: Laboratory Results - last 24 hr 01/28/22 01/28/22 01/29/22 16:12 19:42 06:11 Anion Gap 16 Estim Creat Clear Calc 34.5 Estimated GFR 27 POC Glucose 248 H 140 H Random Glucose 123 H Calcium 8.8 01/29/22 01/29/22 07:19 11:19 Anion Gap Estim Creat Clear Calc Estimated GFR POC Glucose 141 H 180 H Random Glucose Calcium Assessment and Plan (1) Schizophrenia: Status: Acute (2) LIVE (acute kidney injury): Status: Acute (3) Metabolic encephalopathy: Status: Acute Plan 61-year-old male with hypertension, hyperlipidemia, insulin-dependent type 2 diabetes, s/p amputation toes b/l feet currently admitted to Psychiatry with medical consult placed due to elevated creatinine and BUN. Given obtunded appearance, diaphoresis, with fever this morning noted by nursing staff of 100.4, with LIVE, patient will be tranferred to the medical floors for admission and further workup. #LIVE on CKD 3 Creatinine lb to 2.3 close to his baseline Likely ATN with hypotension and ARB Doppler ultrasound showed evidence of right renal artery stenosis Hold Hydrochlorothiazide for now Monitor intake and output Nephrology input appreciated, hold nephrotoxic medications, Kidney Bx today # metabolic encephalopathy Likely secondary to acute kidney injury, improving Recurrent reorientation Advanced diet as tolerated # Hypernatremia 2/2 decrease PO intake and IVF DC fluids, encourage PO intake follow BMP #Chronic normocytic anemia slight decrease from baseline likely from dilution Monitor H&H #Psychosis Restart risperidone To get care team evaluation once medically clear for medication advice and placement purposes #Insulin-dependent type 2 diabetes- uncontrolled iwth A1c 10.4 POC glucose diabetic diet # hypertension Continue amlodipine DC lisinopril and losartan Increase HCT and Carvedilol monitor BP # HLD continue atorvastatin DVT prophylaxis heparin Full code Patient requires inpatient stay overnight due to LIVE requiring further investigation w kidney Bx to prevent possible decompensation into renal failure Quality Stroke Does the patient have a stroke diagnosis?: No VTE Prior VTE?: No VTE Risk Level:: Medical - moderate - high VTE Device Contraindication: Treatment Not Indicated VTE Drug Contraindication: N/A - Med Ordered
[2022-01-29] MEDS: Insulin Lispro 100 UNIT/ML 3 ML VIAL SUBCUT ×6 (11:52→20:42)
--- NOTE | 2022-01-29 14:09 | MHC.CARE ---
Care Team received a consult for medically cleared for evaluation and recommendation. Care Team met with pt in S3 in room 387-1. Pt laying down in his bed wearing hospital attire. He was alert and oriented. His eye contact was intermittent and speech was WNL for volume and tone. Pt stated his appetite and sleep are good. Pt denied SI/HI/AVH and advocated to return home. Care Team spoke with pt's spouse Brynn Carnes who was visiting and stated she believes pt has dementia because the things he says does not make sense . She reported pt stated he has one of the nurses , forgetful and mis manages his money. She requested assistance for pt's care at home as she provides care for her sister who has a disability.
[2022-01-29 15:33] LABS: Glucose, Whole Blood 167 mg/dL (60-115)
--- NOTE | 2022-01-29 15:49 | MHC.CM.PN ---
Addendum entered by Madeleine Valles RN 01/29/22 15:54: CORRECTION; PCP IS KEVYN HERNANDEZ Original Note: PATIENT STATES THAT HE USES THE [facility] FOR HIS PCP AND PHARMACY NEEDS. CALL TO [phone] PATIENT PCP JOEL HERNANDEZ. UPDATE MADE IN [facility]
[2022-01-29 20:11] LABS: Glucose, Whole Blood 175 mg/dL (60-115)
[2022-01-29] MEDS: traZODone HCL 100 MG TABLET PO (20:41)
[2022-01-30 03:00] VITALS: BP 121/60; PULSE 64; RESP 18; TEMP 36.6; O2SAT 94
[2022-01-30 06:52] LABS: Anion Gap 15 (12-20); Blood Urea Nitrogen 38 mg/dL (9-16); Calcium 8.9 mg/dL (8.4-10.2); Carbon Dioxide 23 mmol/L (22-29); Chloride 107 mmol/L (96-108); Creatinine Clr Calc Pharmacy 34.5; Estimated Glomerular Filt Rate 27; Glucose Random 142 mg/dL (60-115); Potassium 3.9 mmol/L (3.3-5.1); Sodium 141 mmol/L (135-145)
[2022-01-30 07:00] VITALS: BP 135/68; PULSE 72; RESP 17; TEMP 37.3; O2SAT 96
[2022-01-30 07:38] LABS: Glucose, Whole Blood 162 mg/dL (60-115)
[2022-01-30] MEDS: risperiDONE 0.5 MG TABLET PO (08:26)
[2022-01-30] MEDS: amLODIPine Besylate 10 MG TABLET PO (08:26)
[2022-01-30] MEDS: carvediloL 12.5 MG TABLET PO (08:26)
[2022-01-30] MEDS: Atorvastatin Calcium 20 MG TABLET PO (08:26)
[2022-01-30] MEDS: Insulin Lispro 100 UNIT/ML 3 ML VIAL SUBCUT ×2 (08:27)
--- NOTE | 2022-01-30 09:26 | PM.DS ---
DS: Providers Provider Date of Service: 01/30/22 Date of admission: 01/24/22 12:47 Primary care physician: Unknown Physician Consults: 01/24/22 12:55 Consult to Nephrology Routine Consulting Provider: Dhaval Worley Reason for consultation: live, encephalopathy 01/29/22 12:28 Consult to Care Team Routine Comment: Reason for consultation: medically clear, for eval and rec DS: Diagnosis Discharge Diagnosis (1) Schizophrenia: Status: Acute (2) LIVE (acute kidney injury): Status: Acute (3) Metabolic encephalopathy: Status: Acute DS: Summary Hospital Course Hospital Course: from initial hpi: 61-year-old male with hypertension, hyperlipidemia, insulin-dependent type 2 diabetes, s/p amputation toes b/l feet currently admitted to Psychiatry with medical consult placed due to increased creatinine and BUN.? He was recently discharged from the medical service after being admitted on a Section 12 placed by [facility] for SI/auditory hallucinations where he was found to have elevated creatinine of 2.34, BUN 23, baseline was unavailable at that time.? Renal function was followed during admission and baseline creatinine found to be around 2.6.? Lisinopril was held during the admission and losartan was prescribed in its place and he was recommended for renal biopsy outpatient. he was transfered to psychiatry yesterday and was noted to be alert and oriented upon arrival participating in PT. However, that night became obtunded stating only wanted to do was sleep.? He has had no p.o. intake since last night and was noted to be febrile at 100.4 this morning and patient remained attended and somnolent but arousable.? Blood pressure 119/60, heart rate 77, oximetry 95%.? White blood count 7.5.? Slight drop in HGB/HCT 10.6/32.1 (baseline 12.9/39.0% on 01/16).? Creatinine elevated to 3.84, BUN 45.? Electrolyte levels normal.? Fasting glucose this morning 157.? Hemoglobin A1c 10.4%.? TSH 1.5. Pt unable to procide much history but does state my neck hurts, I got hit though there were no injuries or falls. He does deny any cough, sore throat, sob, nausea/vomiting, diarrhea, dysuria, hemturia, or chest pain. Did receive initial dose losartan yesterday as well as 100mg trazodone (not new), and insulin lispro. hospital course: Patient was admitted for acute kidney injury on CKD 3. This was likely due to brought of hypotension due to use of Henrique/Arb in a patient with renal artery stenosis. Lisinopril and losartan have been discontinued. Patient underwent renal biopsy results are pending and should be followed up. Renal function returned to baseline of about 2.3 creatinine. Patient was also admitted with metabolic encephalopathy. This was likely due to LIVE and hypernatremia. It resolved. Hypernatremia resolved with fluids. Patient has chronic normocytic anemia due to chronic kidney disease. For patient's acute psychosis he is on risperidone. He was deemed not to require further inpatient psychiatric treatment at this time. For his diabetes he was treated with insulin. For hypertension he was continued on amlodipine and started on carvedilol. Hyperlipidemia is continue on atorvastatin. Time Spent with Patient Time attestation: Total time spent providing and/or coordinating discharge services: Discharge coordination time: Greater than 30 minutes Quality: Safe Use of Opioids Does Pt have an Active Cancer Diagnosis on the Problem List?: No Quality: Stroke Does the patient have a stroke diagnosis?: No Physical Exam Vital Signs: Vital Signs: Last Vital Signs Temp 99.2 F 01/30/22 07:00 Pulse 72 01/30/22 07:00 Resp 17 01/30/22 07:00 BP 135/68 01/30/22 07:00 Pulse Ox 96 01/30/22 07:00 O2 Del Method 01/30/22 07:00 BMI result Body Mass Index 28.1 Const: Other: Constitutional : Awake, interactive, not in distress Neck : Normal inspection, Supple Cardiovascular : RRR, no JVP, no lower extremity edema Respiratory : good bilateral air entry, no crackles, wheezes or rhonchi Gastrointestinal: soft, lax, Normal bowel sounds, Non tender Skin : Warm, Dry Neurological : Alert & oriented to self and place, No focal deficit DS: Data Data Completed and Pending Pending studies at discharge: Pending at discharge 01/29/22 09:38 Surgical Path [Surgical] [PTH] Routine Labs on day of discharge: Laboratory Results - last 24 hr 01/29/22 01/29/22 01/29/22 11:19 15:28 20:07 Sodium Potassium Chloride Carbon Dioxide Anion Gap BUN Creatinine Estim Creat Clear Calc Estimated GFR POC Glucose 180 H 167 H 175 H Random Glucose Calcium 01/30/22 01/30/22 06:19 07:22 Sodium 141 Potassium 3.9 Chloride 107 Carbon Dioxide 23 Anion Gap 15 BUN 38 H Creatinine 2.43 H Estim Creat Clear Calc 34.5 Estimated GFR 27 POC Glucose 162 H Random Glucose 142 H Calcium 8.9 Discharge Plan Discharge Anticipated Discharge Date/Time: 01/30/22 09:23 Patient Disposition: Home Health Service Discharge Diagnosis: live, renal artery stenosis Referrals: Francisco J Shaw MD [Physician] - 1 Week Discharge Medications: New carvedilol 12.5 mg Tablet 12.5 mg PO BID Qty: 60 0RF Protocol: Hold for SBP/HR < HOLD for SBP < : 90 HOLD for HR < : 60 Continued clopidogrel 75 mg tablet 1 tab PO DAILY risperidone 0.5 mg tablet,disintegrating 0.5 mg PO BID insulin glargine [Basaglar KwikPen U-100 Insulin] 100 unit/mL (3 mL) insulin pen 36 unit subcut atorvastatin 20 mg Tablet 20 mg PO DAILY trazodone 100 mg Tablet 100 mg PO BEDTIME gabapentin 300 mg capsule 1 cap PO BEDTIME PRN (Reason: neuropathic pain) amlodipine 10 mg Tablet 10 mg PO DAILY 30 Days Qty: 30 2RF Protocol: Hold for SBP< HOLD for SBP < : 90 insulin lispro [Humalog U-100 Insulin] 100 unit/mL Solution 5 unit subcut QIDACHS Qty: 10 0RF insulin lispro [Humalog U-100 Insulin] 100 unit/mL Solution See Protocol subcut QIDACHS Qty: 10 0RF Protocol: Insulin Correction Scale Less than or equal to 110 ---- Give (units): 0 111 to 150 Give (units): 0 151 to 200 Give (units): 2 201 to 250 Give (units): 6 251 to 300 Give (units): 8 301 to 350 Give (units): 10 Greater than 350 Give (units): 12 Call MD if Blood Glucose > : 400 Discontinued lisinopril 40 mg Tablet 40 mg PO DAILY Hold Instructions: Resume on 02/05/22. Due to LIVE/CKD med was held. losartan started instead. Please discuss with Nephro prior to continuing losartan 50 mg Tablet 100 mg PO DAILY 30 Days Qty: 60 2RF Protocol: Hold for SBP< HOLD for SBP < : 90 Discharge Orders: Discharge Order (Routine); Ordered 01/30/22 Ordered By: Joesph Penn Diet: Diabetic diet Activity on Discharge: As tolerated Stand Alone Forms: Patient Portal Discharge page Care Plan Goals: recovery Health Concerns: live Plan of Treatment: stop lisinopril and losartan, start coreg, follow up with kidney doctor Assessment: see above
--- NOTE | 2022-01-30 10:17 | MHC.CM.PN ---
IMM 01/30/22 Male discharged today to home [facility] has been referred. Patient has a new PCP appt scheduled for Friday. [facility] will follow. Patients provided transportation home.
== END 2022-01-30 10:10 | disposition home health service (06) | DRG 682 ==
PROVIDERS: Radiology Diagnostic Radiology; Student in an Organized Health Care Education/Training Program; Admitting Provider Physician Assistant; PCP Internal Medicine; Visit Provider Internal Medicine
PROC: 0TB03ZX Excision of Right Kidney, Percutaneous Approach, Diagnostic (ICD-10-PCS; principal; 2022-01-29 08:30)
DX: N17.0 Acute kidney failure with tubular necrosis (principal); G93.41 Metabolic encephalopathy; E87.0 Hyperosmolality and hypernatremia; I12.9 Hypertensive chronic kidney disease with stage 1 through stage 4 chronic kidney disease, or unspecified chronic kidney disease; D63.1 Anemia in chronic kidney disease; D64.9 Anemia, unspecified; F20.9 Schizophrenia, unspecified; N18.32 Chronic kidney disease, stage 3b; I70.1 Atherosclerosis of renal artery; E78.5 Hyperlipidemia, unspecified; E11.22 Type 2 diabetes mellitus with diabetic chronic kidney disease; Z87.891 Personal history of nicotine dependence; Z88.0 Allergy status to penicillin; Z79.4 Long term (current) use of insulin; Z79.82 Long term (current) use of aspirin; Z79.899 Other long term (current) drug therapy
CPT/HCPCS: 36415; 50200; 76775; 77012; 80048; 82550; 82947; 83735; 85027; 85610; 88300; 88305; 88313; 88346; 88348; 88350; 93975; 99152; 99153